=== PATIENT | male | born 1985 | race African-American/Black ===

== ENCOUNTER 2024-08-05 11:22 | Emergency (ER) | payer BC, OTHER, SELFPAY ==
[2024-08-05] VITALS (7 sets, daily range): BP systolic 177; BP diastolic 129; PULSE 89–107; RESP 14–23; TEMP 36.2; O2SAT 98–100; BMI 29.5
--- OUTSIDE RECORDS SUMMARY | 2024-08-05 11:23 | XMS_ITS | Continuity of Care Document ---
Author Name [facility] Organization [facility] Care Team Providers Care Information Systems Professor Name Role Phone [facility] Unavailable Unavailable Problems Combined list of problems from Department of Defense and Veterans Affairs facilities. It does not include entries that were removed or entered in error. Problem Status Onset Date Problem Type Date of Resolution Comments Source Diarrhea, unspecified Inactive 2 Condition [facility] Essential hypertension Active 6 Condition Unknown Organization Essential (primary) hypertension Active 6 Condition [facility] ASSESSMENT, PRE-DEPLOYMENT, DOCUMENTED ON [id number] Active 9 Condition [facility] Acquired pes planus of both feet Active Condition Unknown Organization Acquired pes planus of right foot Active Condition [address] [place] [address] [place] EXAM, OCCUPATIONAL, SKILLED NURSING OR SEPARATION FROM [employer], LONG Active Condition [address] [place] [address] [place] Left shoulder pain Active Condition [facility] [place] Other low back pain Active Condition [address] [place] [address] [place] Right knee pain Active Condition [address] [place] [address] [place] Need For Vaccination Hepatitis A Inactive Condition [facility] Medications Combined list of outpatient medications from Department of Defense and Veterans Affairs facilities.Medications provided include 1) outpatient medications from the last 15 months, and 2) patient-reported medications. Medication Details Route Status Patient Instructions Prescription Expires Prescription Number Last Dispense Date Ordering Provider Order Date Order Qty Source amitriptyli ne 25 mg oral tablet 1 tab(s), Oral, every day at bedtime, # 90 tab(s), 1 total refill(s ), Acute, Pharmacy : [facility] Oral (given by mouth) Complet ed 06/01/2024 4 2024 90.0 [facility] [place] amitriptyli ne 25 mg oral tablet 90 tab(s), 0 Refill(s ), 0 total refill(s ), Soft Stop Complet ed 11/27/20222022 [facility] [place] amitriptyli ne 25 mg tablet See dose instruct ions in comments , # 90 EA, 1 total refill(s ), Acute Complet ed 06/02/2023 3 2023 90.0 Ambulat ory Pharmac y Amitriptyli ne Hydrochlori de (Elavil Eq.) Tablet 25 mg Oral May cause drowsine ss.Avoid exposure to sun.Take or use exactly as directed .Obtain advice for OTCs. 05/31/2024 [id number] 4 2023 90 [facility] carboxymeth ylcellulose 0.25% eye drops 0.5 %, OPHTHALM IC, 0 Refill(s ), 0 total refill(s ), Soft Stop Complet ed 11/27/20222022 [facility] [place] chlorthalid one 25 mg tablet See dose instruct ions in comments , # 90 EA, 3 total refill(s ), Acute Discont inued 06/09/2023 3 2023 90.0 Ambulat ory Pharmac y Debrox Earwax Removal Kit 6.5% otic solution See Instruct ions, 2 drop(s) BID as directed on package labeling , # 30 mL, 0 total refill(s ), Acute, Pharmacy : [facility] Discont inued 06/01/2023 3 2023 30.0 [facility] [place] dexAMETHaso ne 4 mg oral tablet See Instruct ions, 2 TABS in the morning for 4 days then 1 TAB in the morning for 7 days, # 15 tab(s), 0 total refill(s ), Acute, Pharmacy : [facility] Complet ed 03/01/2023 3 2022 15.0 [facility] [place] diclofenac sodium 75 mg oral delayed release tablet 1 tab(s), Oral, BID, # 14 tab(s), 0 total refill(s ), Jaelyn sce, Pharmacy : [facility] Oral (given by mouth) Discont inued 06/01/2023 3 2023 14.0 [facility] [place] lansoprazol e 30 mg oral delayed release capsule 1 cap(s), Oral, Daily, # 60 cap(s), 2 total refill(s ), Jaelyn [facility], Pharmacy : [facility] Oral (given by mouth) Discont inued 02/19/20232022 60.0 [facility] [place] LISDEXAMFET AMINE DIMESYLATE (lisdexamfe tamine dimesylate) , 50 MG, CAPSULE, ORAL, HIKMA PHARMACEU, 100 ea. BOTTLE Active [id number] 4 2023 30 Pharmac y Data Transac tion Service Facilit y losartan-hy droCHLOROth iazide 50mg-12.5mg oral tablet 1 tab(s), Oral, Daily, for blood pressure , # 90 tab(s), 3 total refill(s ), Jaelyn [facility], Pharmacy : [facility] Oral (given by mouth) Ordered 4 2023 90.0 [facility] [place] ocular lubricant ophthalmic solution INSTILL 1 TO 2 DROPS IN AFFECTED EYE(S) OFTEN NEEDED FOR DRYNESS, # 30 EA, 10 total refill(s ), Acute Complet ed 10/28/2023 3 2023 30.0 Ambulat ory Pharmac y omeprazole 40 mg oral delayed release capsule 1 cap(s), Oral, Daily, 30 to 60 minutes before a meal, # 60 cap(s), 0 total refill(s ), [facility], Pharmacy : [facility] Oral (given by mouth) Discont inued 06/01/2023 3 2023 60.0 [facility] [place] Allergies, Adverse Reactions, Alerts Combined list of allergies from Department of Defense and Veterans Affairs facilities. It does not include entries that were removed or entered in error. Substance Category Reaction Severity Reaction type Status Date Reported Comments Source No Known Allergies Drug allergy (disorder) active 11/28/2022 [facility] Immunizations Combined list of available immunizations from the Department of Defense and Veterans Affairs facilities. Immunization Series Date Given Administered By Site Reaction Lot Number CVX Code Drug Water Quality Assistant Status Comments Source influenza virus vaccine, inactivated 2022 JOSE ELIAS Long[place] linda, left (delt oid) [id number] [employer] complet ed influenza virus vaccine, inactivat ed 02/25/23 Given [facility] [place] influenza, injectable, quadrivalent- pf 2022 JESSICALYNCH [id number] 150 complet ed Result Comment: Route: Unknown Manufactu rer: OT (SEQ) [facility] [place] typhoid Vi capsular polysaccharid e vac 2022 JESSICALYNCH [id number] 101 complet ed Result Comment: Route: Unknown Manufactu rer: OT (PMC) [facility] [place] influenza, injectable, quadrivalent- pf 2021 MS.CHRISTIE RAINESJAIME [id number] 150 complet ed Result Comment: Route: Intramusc ular(IM) Manufactu rer: Mediam[employer] e (SKB) [facility] [place] COVID-19 vaccine(Pfize r Bival 12yr+) 2021 MS.CHRISTIE GONZALEZKARYNA [id number] 300 complet ed Result Comment: Route: Intramusc ular(IM) Manufactu rer: Pfizer, Inc (PFR) [facility] [place] influenza, injectable, quadrivalent 2021 JESSICALYNCH [id number] 158 complet ed Result Comment: Route: Unknown Manufactu rer: [facility] (SKB) [facility] [place] COVID Vaccine Moderna 2021 MS.CHRISTIE GONAZLEZKARYNA [id number] 207 complet ed Result Comment: Route: Intramusc ular(IM) Manufactu rer: Moderna US, Inc. (MOD) [facility] [place] COVID Vaccine Moderna 2021 MSISIDRAARABELLAREINA MARINO [id number] 207 complet ed Result Comment: Route: Unknown Manufactu rer: Moderna US, Inc. (MOD) [facility] [place] influenza, injectable, quadrivalent- pf 2020 MS.SHARONDALA PICHARDO [id number] 150 complet ed Result Comment: Route: Intramusc ular(IM) Manufactu rer: [employer] (SKB) [facility] [place] influenza, injectable, quadrivalent- pf 2020 MS.SHARONDALA PICHARDO [id number] 150 complet ed Result Comment: Route: Unknown Manufactu rer: [employer] (SKB) [facility] [place] yellow fever vaccine 2020 MS.SHARONDALA PICHARDO [id number] 37 complet ed Result Comment: Route: Subcutane ous(SC) Manufactu rer: Sanofi Pasteur (PMC) [facility] [place] meningococcal A,C,Y,W-135 (MCV4P) 2020 MS.SHARONDALA PICHARDO [id number] 114 complet ed Result Comment: Route: Intramusc ular(IM) Manufactu rer: Sanofi Pasteur (PMC) [facility] [place] COVID Vaccine Moderna 2020 JESSICALYNCH [id number] 207 complet ed Result Comment: Route: Unknown Manufactu rer: OTH (MOD) [facility] [place] COVID Vaccine Moderna 2020 JESSICALYNCH UNK 207 complet ed Result Comment: Route: Unknown Manufactu rer: OTH (MOD) [facility] [place] typhoid Vi capsular polysaccharid e vac 2020 zzLef t Arm [id number] 101 sanofi pasteur complet ed typhoid Vi capsular polysacch aride vac 05/01/20 Given Ambulat ory Pharmac y typhoid Vi capsular polysaccharid e vaccine 1 2020 LUCINDA GLASS I [id number] Sanofi Pasteur (PMC) complet ed typhoid Vi capsular polysacch aride vaccine DoD influenza virus vaccine, inactivated 2019 [id number] Seqirus complet ed influenza virus vaccine, inactivat ed 01/06/20 Given Ambulat ory Pharmac y Influenza, injectable, Madin [place] Canine Kidney, quadrivalent with preservative 1 2019 [id number] 186 Se[employer]irus (SEQ) comple t ed Influenza , injectabl e, Madin [place] Canine Kidney, quadrival ent with preservat aicha DoD anthrax vaccine 2019 zzLef t Arm [id number] 24 Emergent Bios[employer] complet ed anthrax vaccine 07/08/19 Given Ambulat ory Pharmac y anthrax vaccine 5 2019 ANÍBALRosario LOREN [id number] 24 [employer]gent [employer] Noti (MIP) complet ed anthrax vaccine DoD influenza, injectable, quadrivalent 2018 zzLef t Arm [id number] 158 Se[employer]irus complet ed influenza , injectabl e, quadrival ent 12/01/18 Given Ambulat ory Pharmac y influenza, injectable, quadrivalent, contains preservative 1 2018 [id number] 090 158 [employer] (SEQ) complet ed influenza , injectabl e, quadrival ent, contains preservat aicha DoD typhoid Vi capsular polysaccharid e vac 2018 [id number] 101 sanofi pasteur complet ed typhoid Vi capsular polysacch aride vac 04/01/18 Given Ambulat ory Pharmac y typhoid Vi capsular polysaccharid e vaccine 1 2018 [id number] 101 Sanofi Pasteur (PMC) complet ed typhoid Vi capsular polysacch aride vaccine DoD influenza, injectable, quadrivalent- pf 2017 150 complet ed influenza , injectabl e, quadrival ent-pf 01/18/18 Given Ambulat ory Pharmac y Influenza, injectable, quadrivalent, preservative free 0 2017 150 (MVX) complet ed Influenza , injectabl e, quadrival ent, preservat aicha free DoD influenza, injectable, quadrivalent 2017 [id number] 158 Se[employer] complet ed influenza , injectabl e, quadrival ent 01/13/18 Given Ambulat ory Pharmac y influenza, injectable, quadrivalent, contains preservative 1 2017 [id number] 158 Seqirus (SEQ) comple t ed influenza , injectabl e, quadrival ent, contains preservat aicha DoD influenza virus vaccine, inactivated 2017 [id number] 88 Seqirus complet ed influenza virus vaccine, inactivat ed 03/04/17 Given Ambulat ory Pharmac y Influenza, injectable, Madin [place] Canine Kidney, quadrivalent with preservative 1 2017 [id number] 186 Seqirus (SEQ) comple t ed Influenza , injectabl e, Madin Tiffany Canine Kidney, quadrival ent with preservat aicha DoD anthrax vaccine 2016 zzLef t Arm [id number] 24 [employer] complet ed anthrax vaccine 06/30/16 Given Ambulat ory Pharmac y anthrax vaccine 4 2016 NIELS ROBIN [id number] 24 Emergent [employer] Not[employer] ([facility]) complet ed anthrax vaccine DoD anthrax vaccine 2015 zzLef t Arm [id number] 24 [employer] complet ed anthrax vaccine 12/31/15 Given Ambulat ory Pharmac y anthrax vaccine 3 2015 AKUA HUFFMAN [id number] 24 [employer]gent [employer] Noti ([facility]) complet ed anthrax vaccine DoD influenza, seasonal, injectable-pf 2015 [id number] 140 CSL Behring complet ed influenza , seasonal, injectabl e-pf 12/13/15 Given Ambulat ory Pharmac y Influenza, seasonal, injectable, preservative free 1 2015 [id number] 140 CSL [employer] Inc. (CSL) complet ed Influenza , seasonal, injectabl e, preservat aicha free DoD measles/mumps /rubella virus vaccine 2015 UNK 03 Unknown complet ed measles/m umps/rube lla virus vaccine 09/07/15 Given Ambulat ory Pharmac y varicella virus vaccine 2015 POLY SOUZAROOSEVELT UNK 21 complet ed Result Comment: Route: Unknown Manufactu rer: OTH (UNK) [facility] [place] measles, mumps and rubella virus vaccine 0 2015 03 () Not Given measles, mumps and rubella virus vaccine DoD hepatitis B vaccine, unspecified formulation 0 2015 45 () Not Given hepatitis B vaccine, unspecifi ed formulati on DoD tetanus, diphtheria, acellular pertu is 2015 zzLef t Arm [id number] 115 complet ed tetanus, diphtheri a, acellular pertussis 08/14/15 Given Ambulat ory Pharmac y tetanus toxoid, reduced diphtheria toxoid, and acellular pertu is vaccine, adsorbed 0 2015 AKUA HUFFMAN [id number] 115 Transcribed (TRS) complet ed tetanus toxoid, reduced diphtheri a toxoid, and acellular pertussis vaccine, adsorbed DoD anthrax vaccine 2015 [id number] 24 Emer[employer] complet ed anthrax vaccine 07/19/15 Given Ambulat ory Pharmac y [place] Encephalitis IM 2015 [id number] 134 Novartis Pharmaceutica ls complet ed [place] Encephali tis IM 07/19/15 Given Ambulat ory Pharmac y anthrax vaccine 2 2015 [id number] 24 [employer] Not[employer] (MIP) complet ed anthrax vaccine DoD [place] Encephalitis vaccine for intramuscular administratio n 2 2015 [id number] 134 Novartis Pharmaceutica l Har[place]. (NOV) complet ed [place] Encephali tis vaccine for intramusc ular administr ation DoD typhoid Vi capsular polysaccharid e vac 2015 [id number] 101 sanofi pasteur complet ed typhoid Vi capsular polysacch aride vac 06/07/15 Given Ambulat ory Pharmac y meningococcal A,C,Y,W-135 (MCV4P) 2015 [id number] 114 sanofi pasteur complet ed meningoco ccal A,C,Y,W-1 35 (MCV4P) 06/07/15 Given Ambulat ory Pharmac y [place] Encephalitis IM 2015 [id number] [id number] 134 Sanofi Pasteur Incorporated complet ed [place] Encephali tis IM 06/07/15 Given Ambulat ory Pharmac y vaccinia (smallpox) vaccine 2015 VV03-01 9C 75 Sanofi Pasteur Incorporated complet ed vaccinia (smallpox ) vaccine 06/07/15 Given Ambulat ory Pharmac y anthrax vaccine 2015 [id number] 24 Emer[employer] complet ed anthrax vaccine 06/07/15 Given Ambulat ory Pharmac y anthrax vaccine 1 2015 [id number] 24 [employer] Noti (MIP) complet ed anthrax vaccine DoD vaccinia (smallpox) vaccine 1 2015 VV03-01 9C 75 (SEA) complet ed vaccinia (smallpox ) vaccine DoD typhoid Vi capsular polysaccharid e vaccine 1 2015 [id number] 101 Sanofi Pasteur (PMC) complet ed typhoid Vi capsular polysacch aride vaccine DoD meningococcal polysaccharid e (groups A, C, Y and W-135) diphtheria toxoid conjugate vaccine (MCV4P) 1 2015 [id number] 114 Sanofi Pasteur (PMC) complet ed meningoco ccal polysacch aride (groups A, C, Y and W-135) diphtheri a toxoid conjugate vaccine (MCV4P) DoD [place] Encephalitis vaccine for intramuscular administratio n 1 2015 [id number] 4E 134 (SEA) complet ed [place] Encephali tis vaccine for intramusc ular administr ation DoD influenza, seasonal, injectable 2015 [id number] 141 CSL Behring complet ed influenza , seasonal, injectabl e 03/22/15 Given Ambulat ory Pharmac y hepatitis A adult vaccine 2015 [id number] 52 GlaxoSmithKli ne complet ed hepatitis A adult vaccine 03/22/15 Given Ambulat ory Pharmac y poliovirus vaccine, inactivated 2015 [id number] 10 sanofi pasteur complet ed polioviru s vaccine, inactivat ed 03/22/15 Given Ambulat ory Pharmac y poliovirus vaccine, inactivated 1 2015 [id number] 10 Sanofi Pasteur (PMC) complet ed polioviru s vaccine, inactivat ed DoD hepatitis A vaccine, adult dosage 2 2015 [id number] 52 SmithKline (SKB) complet ed hepatitis A vaccine, adult dosage DoD Influenza, seasonal, injectable 1 2015 [id number] 141 [facility] Biotherapies, Inc. (CS) complet ed Influenza , seasonal, injectabl e DoD measles, mumps and rubella virus vaccine 1 2015 UNK 03 Unknown (UNK) Not Given measles, mumps and rubella virus vaccine DoD varicella virus vaccine 1 2015 UNK 21 Unknown (UNK) Not Given varicella virus vaccine DoD hepatitis B vaccine, adult dosage 2 2015 UNK 43 Unknown (UNK) Not Given hepatitis B vaccine, adult dosage DoD hepatitis B adult vaccine 2014 [id number] 43 GlaxoSmithKli ne complet ed hepatitis B adult vaccine 04/09/14 Given Ambulat ory Pharmac y HepB, Adult 2014 SHARON [id number] 43 complet ed Result Comment: Route: Unknown Manufactu rer: Kurt mock (SKB) [facility] [place] hepatitis B vaccine, adult dosage 1 2014 [id number] 43 SmithKline (SKB) complet ed hepatitis B vaccine, adult dosage DoD influenza, seasonal, injectable 2013 [id number] 141 GlaxoSmithKli ne complet ed influenza , seasonal, injectabl e 02/04/14 Given Ambulat ory Pharmac y Influenza, seasonal, injectable 1 2013 [id number] 141 SmithKline (SKB) complet ed Influenza , seasonal, injectabl e DoD hepatitis A adult vaccine 2013 zzRig ht Arm [id number] 2GA 52 GlaxoSmithKli ne complet ed hepatitis A adult vaccine 09/06/13 Given Ambulat ory Pharmac y hepatitis A vaccine, adult dosage 1 2013 NICK LUNDBERG [id number] 2GA 52 SmithKline (SKB) complet ed hepatitis A vaccine, adult dosage DoD Results Combined list of recent chemistry, hematology and other laboratory results from Department of Defense and Veterans Affairs, ranging from 15 months to all on record, depending upon the facility. Order Name Results Value Reference Range Date Interpretation Specimen Comments Source Infectiou s Disease HIV-1/O/2 Non-Reac tive 2 (06/11/23 9:53 AM) 06/10 N Interpretiv e Data: INTERPRETAT ION: This method is a screening procedure for the detection of HIV p24 Antigen and Antibodies to HIV-1, including Group O, and/or HIV-2. NON-REACTIV E: HIV-1 antigen and HIV-1 / HIV-2 antibodies were not detected. No laboratory evidence of HIV infection. A negative test result does not exclude the possibility of exposure to or infection with HIV. HIV antibodies and/or p24 antigen may be undetectabl e in some stages of the infection and in some clinical conditions. If acute HIV infection is suspected, consider submitting another specimen to a reference laboratory for HIV-1 RNA. SCREEN REACTIVE - CONFIRMATIO N TO FOLLOW: Possible presence of HIV-1antibo dies, HIV-2 antibodies and/or HIV-1 p24 antigen. Specimen will reflex to the confirmatio n testing that fulfills the Center for Disease Control and Prevention' s HIV diagnostic algorithm. Refer to [facility] Lab Guide for additional information : [email or web address]/ [email or web address] x Testing performed by Omar licona. [facility] [employer] Miscellan eous Sendouts Repository Sample Received (06/11/23 9:53 AM) 06/10 N [facility] Infectiou s Disease Reason for Test? Screenin g *NA* (08/04/20 10:20 AM) 08/04 [facility] Molecular Infectiou s Disease SARS-CoV-2 PCR Negative 3 (08/04/20 10:20 AM) 08/04 N Interpretiv e Data: POSITIVE-Th e 2019 novel Coronavirus (SARS-COV-2 ) target nucleic acids are detected. PRESUMTIVE POSITIVE-Th e 2019 novel Coronavirus (SARS-COV-2 ) target nucleic acids MAY be present. Sample should be retested. For samples with a repeated PRESUMTIVE POSITIVE result, additional confirmator y testing may be conducted, if it is necessary to differentia te between SARS-COV-2 and SARS-COV-1 or other Sarbecoviru s currently unknown to infect humans, for epidemiolog ical purposes or clinical management. NEGATIVE- The 2019 novel Coronavirus (SARS-COV-2 ) target nucleic acids are not detected. INVALID- Result indicates that the control SPC failed. The Sample was not properly processed, PCR is inhibited, or the sample was not properly collected. ERROR- Result could be due to, but not limited to, Probe Check Control failure, system component failure, or the maximun pressure limits were exceeded. NO RESULT- Indicates that insufficien t data were collected. For example, cartridge failed integrity test, the spaghetti machine operator stopped a test that was in progress, or a power failure occurred. Currently the FluVID order may only be used to test SARS-CoV-2 at [facility] Hematolog y Sickle Cell Screen.[facility] NEGATIVE 07/09 Result Comment: INTERPRETAT ION(S): Expected result: Negative This test was developed and its performance characteris tics evaluated by [facility] Reference Chemistry Laboratory. It has not been cleared or approved by the U.S. Food Drug Administrat ion (FDA). FDA does not require this test to go through premarket FDA review. The test is used for clinical purposes and should not be regarded as investigati onal or for research. This laboratory is certified under the Clinical Laboratory Improvement Amendments of 1988 (CLIA) as qualified to perform high complexity clinical laboratory testing. Performed at: [facility] Department of Pathology [address] [place] [address] [facility] Vital Signs Combined list of inpatient and outpatient Vital Signs from Department of Defense and Veterans Affairs, ranging from 12 months to all on record, depending upon the facility. Vital Sign Value Date Comments Source Peripheral Pulse Rate 103 bpm 06/01/2023 08:06:00 [facility] [place] Systolic Blood Pressure 138 mm[Hg] 06/01/19 24 08:06:00 [facility] [place] Diastolic Blood Pressure 118 mm[Hg] 024 08:06:00 [facility] [place] Mean Arterial Pressure, Calc 125 mm[Hg] 06/01/2023 08:06:00 [facility] [place] Respiratory Rate 17 br/min 06/01/2023 08:06:00 [facility] [place] BP Site Right arm 06/01/2023 08:06:00 [facility] [place] Blood Pressure Manual Automatic 06/01/2023 08:06:00 [facility] [place] Peripheral Pulse Rate 92 bpm 06/03/2023 07:14:00 [facility] [place] Respiratory Rate 18 br/min 06/03/2023 07:14:00 [facility] [place] BP Site Right arm 06/03/2023 07:14:00 [facility] [place] Blood Pressure Manual Manual 06/03/2023 07:14:00 [facility] [place] Systolic Blood Pressure 135 mm[Hg] 06/03/19 24 07:14:00 [facility] [place] Diastolic Blood Pressure 90 mm[Hg] 024 07:14:00 [facility] [place] Mean Arterial Pressure, Calc 105 mm[Hg] 06/03/2023 07:14:00 [facility] [place] Mean Arterial Pressure, Calc 105 mm[Hg] 06/09/2023 07:37:00 [facility] [place] Systolic Blood Pressure 142 mm[Hg] 06/09/19 24 07:37:00 [facility] [place] Diastolic Blood Pressure 86 mm[Hg] 024 07:37:00 [facility] [place] Blood Pressure Manual Automatic 06/09/2023 07:37:00 [facility] [place] BP Site Left arm 06/09/2023 07:37:00 [facility] [place] Peripheral Pulse Rate 107 bpm 06/09/2023 07:37:00 [facility] [place] Respiratory Rate 16 br/min 06/09/2023 07:37:00 [facility] [place] Peripheral Pulse Rate 97 bpm 12/26/2022 08:08:00 [facility] [place] Mean Arterial Pressure, Calc 109 mm[Hg] 12/26/2022 08:08:00 [facility] [place] Systolic Blood Pressure 135 mm[Hg] 12/27/19 23 08:08:00 [facility] [place] Diastolic Blood Pressure 96 mm[Hg] 023 08:08:00 [facility] [place] Peripheral Pulse Rate 77 bpm 07/24/2020 14:00:[address] [place] [address] Mean Arterial Pressure, Calc 107 mm[Hg] 01/02/2023 08:37:00 [facility] [place] Peripheral Pulse Rate 96 bpm 01/02/2023 08:37:00 [facility] [place] Systolic Blood Pressure 140 mm[Hg] 01/03/20 23 08:37:00 [facility] [place] Diastolic Blood Pressure 90 mm[Hg] 023 08:37:00 [facility] [place] Blood Pressure Manual Manual 06/05/2023 07:42:00 [facility] [place] BP Site Right arm 06/05/2023 07:42:00 [facility] [place] Mean Arterial Pressure, Calc 113 mm[Hg] 06/05/2023 07:42:00 [facility] [place] Respiratory Rate 20 br/min 06/05/2023 07:42:00 [facility] [place] Peripheral Pulse Rate 102 bpm 06/05/2023 07:42:00 [facility] [place] Systolic Blood Pressure 138 mm[Hg] 06/05/19 24 07:42:00 [facility] [place] Diastolic Blood Pressure 100 mm[Hg] 024 07:42:00 [facility] [place] Blood Pressure Manual Manual 06/02/2023 09:02:00 [facility] [place] BP Site Right arm 06/02/2023 09:02:00 [facility] [place] Respiratory Rate 20 br/min 06/02/2023 09:02:00 [facility] [place] Peripheral Pulse Rate 90 bpm 06/02/2023 09:02:00 [facility] [place] Mean Arterial Pressure, Calc 118 mm[Hg] 06/02/2023 09:02:00 [facility] [place] Systolic Blood Pressure 148 mm[Hg] 06/02/19 24 09:02:00 [facility] [place] Diastolic Blood Pressure 103 mm[Hg] 024 09:02:00 [facility] [place] Temperature Oral 37 Jennifer 07/02/2020 13:18:00 0008C-[facility] Respiratory Rate 16 br/min 07/02/2020 13:18:00 0008C-Lai.[facility] Blood Pressure Manual Manual 07/02/2020 13:18:00 0008C-RKunal.[facility] BP Site Left arm 07/02/2020 13:18:00 0008C-R.[facility]idencio[facility] Systolic Blood Pressure 138 mm[Hg] 11/29/19 23 11:58:00 [facility] [place] Diastolic Blood Pressure 88 mm[Hg] 023 11:58:00 [facility] [place] Peripheral Pulse Rate 100 bpm 11/28/2022 11:58:00 [facility] Respiratory Rate 13 br/min 11/28/2022 11:58:00 [facility] Temperature Oral 37 Jennifer 11/28/2022 11:58:00 [facility] Blood Pressure Manual Manual 11/28/2022 11:58:00 [facility] BP Site Left arm 11/28/2022 11:58:00 [facility] Mean Arterial Pressure, Calc 105 mm[Hg] 11/28/2022 11:58:00 [facility] Systolic Blood Pressure 144 mm[Hg] 06/04/19 07:26:00 [facility] Diastolic Blood Pressure 92 mm[Hg] 024 07:26:00 [facility] Blood Pressure Location Right arm 06/04/19 07:26:00 [facility] Blood Pressure Method Manual 06/04/2023 07:26:00 [facility] Cuff Size Medium 06/04/2023 07:26:00 [facility] Peripheral Pulse Rate 106 bpm 06/04/2023 07:26:00 [facility] Mean Arterial Pressure, Calc 109 mm[Hg] 06/04/2023 07:26:00 [facility] Blood Pressure Method Manual 06/04/2023 07:30:00 [facility] Mean Arterial Pressure, Calc 113 mm[Hg] 06/04/2023 07:30:00 [facility] Systolic Blood Pressure 138 mm[Hg] 06/04/19 24 07:30:00 [facility] Diastolic Blood Pressure 100 mm[Hg] 024 07:30:00 [facility] Cuff Size Medium 06/04/2023 07:30:00 [facility] Blood Pressure Location Left arm 06/04/19 24 07:30:00 [facility] Encounters Combined list of: 1) Encounters from [facility] of Veterans Affairs facilities going backup to the last 18 months, not all VA inpatient encounters are included; 2) 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 Location Location Details Encounter Type Encounter Number Reason For Visit Attending Provider ADM Date DC Date Status Disposition Source [facility] OUTPATIENT [id number] A/E PAULA HERNANDEZ 08/13 Released w/o Limitations [facility] [place] [facility] Araujo([facility]) OUTPATIENT [id number] Notes Entered by: GERRY WASHINGTON 30 Aug 2013 1552 ------- ------- ------- ------- -- ramirez in process GERRY Mosley 08/30 Released w/o Limitations [facility]DR[facility] ) [place] UDAY [facility] SONDRA(Immuni zation Clinic) OUTPATIENT [id number] Notes Entered by: Gianna LUNDBERG 06 Sep 2013 1021 ------- ------- ------- ------- -- NICK SANCHEZ 09/06 Released w/o Limitations [facility] [place](Im[place] niz[place] n Clinic) [facility] [place]([facility]) OUTPATIENT [id number] Notes Entered by: JAYSON CARRILLO 22 Mar 2015 0831 ------- ------- ------- ------- -- INPRO/P ZIMMERMAN/MF 829/HEP A/FLU/M GC/JEANETTE O/TDAP/ G6PD/ YESICA WHITESIDE 03/22 Released w/o Limitations [facility] [place](Sold ier Readine ss Program Center) [facility] [place](IE Hearing Conservat ion Exam) OUTPATIENT [id number] Notes Entered by: PAULO SAEED 22 Mar 2015 1150 ------- ------- ------- ------- -- Annual Hearing Test RAEANN SAEED 03/22 Released w/o Limitations [facility] [place] [place](IEP Hearing Conserv ation Exam) [facility] [place] [id number] Notes Entered by: CHRIS SHIPMAN 11 Apr 2015 0938 ------- ------- ------- ------- -- BOL 03/17 RESP-CL MIMI CAMILO 04/11 [facility]itations [facility] [place](Civi l Defense Support Team) [facility] [place] OUTPATIENT [id number] Notes Entered by: Gianna JOSE 26 Apr 2015 0758 ------- ------- ------- ------- -- BOL 03/17 MED MONITOR ING DELVIN MERA 04/26 [facility]ased [facility]/o Limitations [facility] [place]) [facility] [place] OUTPATIENT [id number] Notes Entered by: ASHLEY ZAPATA 03 May 2015 0747 ------- ------- ------- ------- -- BOL 03/17-M ED MONITOR CHRIS RUSS 05/02 Released w/o Limitations [facility] [place] [facility] [place] [id number] Notes Entered by: CHRIS SHIPMAN 04 May 2015 0834 ------- ------- ------- ------- -- BOL 03/17 MED MONITOR ING CANDICE MCKEON 05/03 [facility]ased w/o Limitations [facility] [place]) [facility] [place] OUTPATIENT [id number] Notes Entered by: RACHELE CALVO 21 May 2015 0911 ------- ------- ------- ------- -- [facility] 2001 MIMI Cross 05/20 Released w/o Limitations [facility] [place]) [facility] [place] OUTPAT[place] [id number] Notes Entered by: ALEYDA HUDDLESTON 07 Jun 2015 1001 ------- ------- ------- ------- -- POR/403 6/ANTHR AX/JEV/ TYPHOID /SMALLP OX/MGC YESICA OSUNA 06/06 Released w/o Limitations [facility] [place] [facility] [place]Doc hernán[place] OUTPATIENT [id number] Notes Entered by: CAMI CARY 08 Jun 2015 0621 ------- ------- ------- ------- -- headach e/JUDY Jimenez 06/07 [facility] Limitations [facility] [place] [facility] [place] OUTPATIENT [id number] Notes Entered by: CAMI CARY 15 Jun 2015 0616 ------- ------- ------- ------- -- f/u JUDY Chan 06/14 [facility] [place]/o Limitations [facility] [place] [facility] [place] [place] [facility] OUTPATIENT [id number] Notes Entered by: QUIN SPENCER 15 Jun 2015 0811 ------- ------- ------- ------- -- smallpo x f/u NELLYYESICA LARA Arin 06/14 [facility]ased w/o Limitations [facility] [place] [place] OUTPATIENT [id number] Notes Entered by: MIMI GARZA 29 Jun 2015 0628 ------- ------- ------- ------- -- F/u BP SCARLET Bell 06/28 [place]ased w/o Limitations [place] OUTPATIENT [id number] Notes Entered by: CAMI CARY 04 Jul 2015 0613 ------- ------- ------- ------- -- f/u JUDY MCCLOUD 07/03 [place]ased [place] Limitations [place] [facility] MARCEL Gatica SAWYER-P YONGTAEK( 1RC) OUTPATIENT [id number] Notes Entered by: CYNDIE NORRIS 19 Jul 2015 1006 ------- ------- ------- ------- -- IN PROCESS IWONA PEÑA 07/18 Released w/o Limitations [facility] MARCEL Gatica SAWYER -PYONGT ИРИНАK(1RC ) [facility] MARCEL Gatica SAWYER-P YONGTAEK( Immunizat ions [place]) OUTPATIENT [id number] Notes Entered by: AKUA HUFFMAN 14 Aug 2015 1057 ------- ------- ------- ------- -- TdAKUA Alegria 08/13 Released w/o Limitations [facility] SAWYER -PYONGT AEK(Imm unizati ons [place] ) [facility] MARCEL Gatica SAWYER-P YONGTAEK( Immunizat ions [place]) OUTPATIENT [id number] Notes Entered by: LOLY TREVINO IN 13 Dec 2015 1545 ------- ------- ------- ------- -- Flu Shot NIELS ROBIN 12/12 Released w/o Limitations [facility]DAY BOWDENGOOD -PYONGT AEK(Imm unizati ons [place] ) [facility]-[place]( Immunizat ions [place]) OUTPATIENT [id number] Notes Entered by: NATHANAELAKUA KIRTI 31 Dec 2015 1331 ------- ------- ------- ------- -- Anthrax AKUA HUFFMAN 12/30 Released w/o Limitations [facility] Gatica SAWYER -PYONGT AEK([facility] unizati ons [place] ) [facility] MARCEL Gatica SAWYER-P YONGTAEK( Hearing Program [place]) OUTPATIENT [id number] Notes Entered by: SHEILA LIU 08 Apr 2016 1431 ------- ------- ------- ------- -- audiolo gy exam NIELS ROBIN 04/08 Released w/o Limitations [facility] BOWDENGOOD -PYONGT AEK(Hea ring Program [place] ) [facility]DENGO[facility]( Immunizat ions [place]) OUTPATIENT [id number] Notes Entered by: MORIAH AGUDELO 30 Jun 2016 1343 ------- ------- ------- ------- -- ANTHRAX NIELS ROBIN 06/30 Released w/o Limitations [facility] JACQUES -PYONGT AEK(Imm unizati ons [place] ) [facility] SAWYER-P Y[facility]( Immunizat ions [place]) OUTPATIENT [id number] Notes Entered by: MORIAH AGUDELO 11 Jul 2016 1103 ------- ------- ------- ------- -- PPD SCREEN DERECKJTSAMPSON H 07/11 Released w/o Limitations [facility] MARCEL ESPAÑA([facility] marisela dill [place] ) [facility] [place](SRP Deploymen t Clinic) OUTPATIENT [id number] Notes Entered by: Ondina YOU 19 Aug 2016 0650 ------- ------- ------- ------- -- [facility] ANTHONY TAVARES 08/19 Released w/o Limitations [facility](SR P Deploym ent Clinic) [facility](Desiree ged Care [facility]) OUTPATIENT [id number] Notes Entered by: Gary SOSA 06 Nov 2016 1332 ------- ------- ------- ------- -- Absent NAHOMY Ray 11/06 Released w/o Limitations [facility](Ma naged Care [facility]) [facility] S05A Gunner) TELE CONSULT [id number] Notes Entered by: FADI COLE 06 Nov 2016 1528 ------- ------- ------- ------- -- AdmJAY Downs 11/06 [facility](AM H S05A Gunner) [facility] S05A Gunner) TELE CONSULT [id number] Notes Entered by: Rafael MORALES 07 Nov 2016 0853 ------- ------- ------- ------- -- NETWORK RESULTS / EMERGEN [facility]/ [id number] JAY COON 11/07 [facility](AM H S05A Gunner) [facility] S05A Gunner) TELE CONSULT [id number] Notes Entered by: WILBERT GIRALDO 10 Nov 2016 0836 ------- ------- ------- ------- -- NETWORK RESULTS ADMKATHY Knight 7 [facility] 11/10 [facility](AM H S05A Gunner) [facility] S05A Gunner) OUTPATIENT [id number] Notes Entered by: Ari GILLETTE 09 Feb 2017 1328 ------- ------- ------- ------- -- Sinus Infecti on KIERA FISHER 02/09 Released w/o Limitations [facility](AM H S05A Gunner) [facility] [facility]) OUTPATIENT [id number] Annual MOHAN RILEY JR 06/05 Released w/o Limitations [facility](Bi ggs Hearing Program ) [facility](Phys ical Therapy [facility]) OUTPATIENT [id number] Notes Entered by: Gary CALABRESE 26 Jan 2018 1549 ------- ------- ------- ------- -- R hamstri ng pain GIANNI CALABRESE 01/26 Released w/o Limitations [facility](Ph ysical Therapy [facility]) [facility] S05A Gunner) OUTPATIENT [id number] congest ion, cough [facility] 03/23 Released w/o Limitations [facility](AM H S05A Gunner) [facility](AMH S05A Gunner) OUTPATIENT [id number] Notes Entered by: GINA RODRIGUEZ 07 May 2018 0828 ------- ------- ------- ------- -- HTN KATEY RODRIGUEZ 05/07 Released w/o Limitations [facility](AM H S05A Gunner) [facility](AMH S05A Gunner) OUTPATIENT [id number] EVAL BLOOD PRESSUR E [phone] MIESHA SALINAS ED 05/13 [facility]ased w/o Limitations [facility]erman(AM H S05A [facility]) [facility] OUTPATIENT [id number] Notes Entered by: Angelina ABDALLA 11 Aug 2018 1338 ------- ------- ------- ------- -- in process ing/vis MITCHEL Jones 08/11 Released w/o Limitations [facility] [place] [facility]) [facility] [place] Conserv[place] Ex[place] OUTPATIENT [id number] Notes Entered by: TREVOR LOPEZ 11 Aug 2018 1347 ------- ------- ------- ------- -- TREVOR Ledesma 08/11 Released w/o Limitations [facility]) [facility] [place] OUTPATIENT [id number] AD INPROCE SSING 3RD CHEM 74A [id number] TREVOR STRATTON 08/23 Released w/o Limitations [facility] [place] [facility] [place] OUTPATIENT [id number] QUETA HARPER 08/24 Released w/o Limitations [facility] [place] [place] OUTPATIENT [id number] met IWONA Hough 09/14 [facility]ased w/o Limitations [facility]) [facility] M01B Rowdy) OUTPATIENT [id number] Fluid filled lump on ankle CAMRYN MITCHELL 09/21 Released w/o Limitations [facility] M01B Rowdy) [place] [place] TELE CONSULT [id number] Notes Entered by: ANNABEL EAGLE 14 Oct 2018 1139 ------- ------- ------- ------- -- results SHIVADIALLO AlfaroKIMBER A 10/14 Other Not Elsewhere Classified [place] M01B Rowdy) [place] [id number] Notes Entered by: AILYN MAGUIRE 01 Dec 2018 1019 ------- ------- ------- ------- -- FLU VACCINE YESICA MAGUIRE 12/01 [facility]ased [facility]/o Limitations [facility] [place] [place] OUT[place]IENT [id number] Notes Entered by: Angelina ABDALLA 16 Feb 2019 1111 ------- ------- ------- ------- -- IMR/PHA /MF830 MEY DUGAN 02/16 [place]ased w/o Limitations [place] [place] [facility] OUT[place]IENT [id number] Notes Entered by: JAYSON CARRILLO 27 Jun 2019 1354 ------- ------- ------- ------- -- IMR/SCR MITCHEL GOOD 06/26 [place]/o Limitations [place] OUTPATIENT [id number] Notes Entered by: Angelina ABDALLA 08 Jul 2019 1458 ------- ------- ------- ------- -- PRE DEPLOY/ DD 2795/ MARLO FRANCIS 07/07 Released w/o Limitations [facility] [place] [facility] [place] [facility] [facility] [place] [id number] Notes Entered by: SHWETA PINO 08 Jul 2019 1524 ------- ------- ------- ------- -- Anthrax LOREN ELIZABETH 07/07 Released w/o Limitations [facility] [place] OUT[place] [id number] Notes Entered by: CHICA CULP 11 Jul 2019 1425 ------- ------- ------- ------- -- annual CHICA CULP 07/10 [facility]ased w/o Limitations [facility] [place] [place] TELE CONSULT [id number] Notes Entered by: RAFY JEAN BAPTISTE 12 Jul 2019 1222 ------- ------- ------- ------- -- JUWAN Complet ed MARIELA JEAN BAPTISTE 07/11 Other Not Elsewhere Classified [facility] [place] [place] [facility] [place]([facility] Deploymen t Clinic) OUTPATIENT [id number] Notes Entered by: ADENIKE BOWIE 04 Aug 2019 0930 ------- ------- ------- ------- -- MOB/PRAFUL TCOM/QA TAR/POLI ZHU 08/03 Released w/o Limitations [facility] [place](SR P Deploym ent Clinic) Miguel Norris [facility] [place] Student [facility]) OUTPATIENT [id number] Notes Entered by: SUKUMAR HAMILTON I 01 May 2020 1315 ------- ------- ------- ------- -- TYPHOID LUCINDA GLASS I. 05/01 Released w/o Limitations [place] [facility]) [facility] Hearing Conservat ion) OUTPATIENT [id number] Annual KIKA UNGER 08/14 Released w/o Limitations [facility](VCZ Hearing Conserv ation) [facility](AMH M01A Red) OUTPATIENT [id number] f/u rt knee pain MARV GONZALEZ 09/24 Released w/o Limitations [facility](AMH M01A Red) [facility] Physical Therapy) OUTPATIENT [id number] Pain in right knee KIM YOUNG 09/26 Released with Work/Duty Limitations [facility]Z Physica l Therapy ) [facility] Physical Therapy) OUTPATIENT [id number] rehab JHONATAN FAJARDO 10/01 Released w/o Limitations [facility] Physica l Therapy ) [facility] Physical Therapy) OUTPATIENT [id number] exJHONATAN Walker 10/03 Released w/o Limitations [facility] Physica l Therapy ) [facility] Physical Therapy) OUTPATIENT [id number] KIM Rose 10/09 Released w/o Limitations [facility] Physica l Therapy ) [facility] Physical Therapy) OUTPATIENT [id number] KIM Rose 10/15 Released w/o Limitations [facility] Physica l Therapy ) [facility] Physical Therapy) OUTPATIENT [id number] KIM Rose 10/17 Released w/o Limitations [facility] Physica l Therapy ) [facility] Physical Therapy) OUTPATIENT [id number] KIM Rose 10/22 Released w/o Limitations [facility] Physica l Therapy ) [facility] Physical Therapy) OUTPATIENT [id number] f/u on knee pain KIM YOUNG 10/23 Released with Work/Duty Limitations [facility] Physica l Therapy ) [facility] Physical Therapy) OUTPATIENT [id number] mri fu KIM YOUNG 11/09 Released with Work/Duty Limitations [facility] Physica l Therapy ) [facility](AMH M01A Red) TELE CONSULT [id number] Notes Entered by: Ari PETERS 21 Nov 2020 1050 ------- ------- ------- ------- -- COVID TEST concern s w/sob CHRISTY LEROY 11/21 Advice Assessment [facility](AMH M01A Red) [facility](LSL Orthopedi cs) OUTPATIENT [id number] Pain in right knee, thomas. howell [email or web address], [phone] TIMOTHY CH 12/13 Released w/o Limitations [facility]SL Orthope dics) [facility] Mass Immunizat ions) OUTPATIENT [id number] Notes Entered by: TIFFANIE CAMPBELL 18 Dec 2020 0932 ------- ------- ------- ------- -- CHLOE WEBBER 12/18 Released w/o Limitations [facility] Mass Immuniz ations) [facility] Orthopedi cs) OUTPATIENT [id number] Preop DOS 30 Nov/ Right knee arthros copy w/ lateral meniscu s repair TIMOTHY CH 01/28 Released w/o Limitations [facility] Orthope dics) [facility]SL Orthopedi cs) TELE CONSULT [id number] Notes Entered by: Gianna KEATING 31 Jan 2021 1321 ------- ------- ------- ------- -- Post Dischar ge follow up HERNANDEZ KEATING 01/31 Other Not Elsewhere Classified [facility] Orthope dics) [facility](AMH M01A Red) OUTPATIENT [id number] Notes Entered by: LAVON SUAZO 05 Feb 2021 1044 ------- ------- ------- ------- -- [facility] MARGUERITE SUAZO 02/05 Released w/o Limitations [facility](AMH M01A Red) [facility](LSL Orthopedi cs) OUTPATIENT [id number] [facility] LAVERN TIPTON RT KNEE MIMI. NADEGE 131.MIL @[facility] [phone] TIMOTHY CH 02/05 Released with Work/Duty Limitations [facility](LSL Orthope dics) [facility] Physical Therapy) OUTPATIENT [id number] meniscu s(R) post op DOS 30 dec KIM YOUNG 02/13 Released with Work/Duty Limitations [facility] Physica l Therapy ) [facility] Physical Therapy) TELE CONSULT [id number] Notes Entered by: AISHWARYA YOUNG 14 Feb 2021 1521 ------- ------- ------- ------- -- POST OP NONCOMP KIM HUERTA 02/14 [facility](VCZ Physica l Therapy ) [facility] Physical Therapy) OUTPATIENT [id number] jaqueline FAJARDO JHONATAN DEL TORO 03/05 Released w/o Limitations [facility]Z Physica l Therapy ) [facility](VCZ Mass Immunizat ions) OUTPATIENT [id number] Notes Entered by: TIFFANIE CAMPBELL 07 Mar 2021 1131 ------- ------- ------- ------- -- COVID IMM MODERNA BOOSTER CHLOE CAMPBELL 03/07 Released w/o Limitations [facility](VCZ Mass Immuniz ations) [facility](AMH M01A Red) TELE CONSULT [id number] Notes Entered by: CECE HASSAN 11 Mar 2021 0802 ------- ------- ------- ------- -- Covid Test AYALA LEAVITT 03/11 Released to Self Care [facility](AMH M01A Red) [facility](AMH M01A Red) TELE CONSULT [id number] Notes Entered by: LORIE PARKER 11 Mar 20212110 ------- ------- ------- ------- -- Polypha rmacy DEC 2020 JOÃO PARKER 03/11 [facility](AMH M01A Red) [facility] Physical Therapy) OUTPATIENT [id number] jaqueline FAJARDOJHONATAN 03/13 Released w/o Limitations [facility]Z Physica l Therapy ) [facility] Physical Therapy) OUTPATIENT [id number] KIM Rose 03/19 Released w/o Limitations [facility](VCZ Physica l Therapy ) [facility](AMH M01A Red) OUTPATIENT [id number] Fatigue , cough, congest ion (x 4 days) SAMIRA MOSCOSO 03/25 Sick at Home/Quarter s [facility](AMH M01A Red) [facility] Physical Therapy) OUTPATIENT [id number] f/u on meniscu s tear post op YOUNGKIM Rosario Katz 03/28 Released with Work/Duty Limitations [facility] Physica l Therapy ) [facility](Z Hearing Conservat ion) OUTPATIENT [id number] MEDPROS KURTIS LIZ 08/13 Released w/o Limitations [facility](VCZ Hearing Conserv ation) [facility](AMH M01B Blue) TELE CONSULT [id number] Notes Entered by: MOJGAN AKBAR 21 Aug 2021 0920 ------- ------- ------- ------- -- [id number] TE [id number] SHARI STEEL 08/21 [facility](AMH M01B Blue) [facility](Z Optometry ) OUTPATIENT [id number] Notes Entered by: Gavi RAMEY Sherita 29 Aug 2021 1438 ------- ------- ------- ------- -- Medpros CHRIS RAMEY 08/29 Released w/o Limitations [facility](Z Optomet ry) [facility](AMH M01A Red) OUTPATIENT [id number] PHDA pre-dep loyment F2F JONAS GANN 08/30 Released w/o Limitations [facility](AMH M01A Red) [facility](AMH M01A Red) TELE CONSULT [id number] Notes Entered by: LORIE PARKER 09 Sep 2021 1558 ------- ------- ------- ------- -- Polypha rmacy JUNE 2021 JOÃO PARKER 09/09 [facility](AMH M01A Red) [facility](AMH M01B Blue) TELE CONSULT [id number] Notes Entered by: STEPH SANTACRUZO NIGEL 07 Oct 2021 1303 ------- ------- ------- ------- -- SEP1 [id number] JAYESH STOUT 10/07 [facility](AMH M01B Blue) [facility](AMH M01A Red) OUTPATIENT [id number] blood pressur e 1 SOLOMON SAADIA DUTTON 10/17 Released w/o Limitations [facility](AMH M01A Red) [facility](AMH M01A Red) OUTPATIENT [id number] blood pressur e #2 SOLOMON SAADIA DUTTON 10/18 Released w/o Limitations [facility](AMH M01A Red) [facility](AMH M01A Red) OUTPATIENT [id number] blood pressur e #3 SOLOMON SAADIA DUTTON 10/21 Released w/o Limitations [facility](AMH M01A Red) [facility](AMH M01B Blue) OUTPATIENT [id number] hyperte nsion wvr for travel TIERNEY NARVAEZ 10/24 Released w/o Limitations [facility](AMH M01B Blue) [facility](AMH M01A Red) TELE CONSULT [id number] Notes Entered by: MARV PERALES 29 Oct 2021 1425 ------- ------- ------- ------- -- med refill MARV GONZALEZ 10/29 [facility](AMH M01A Red) [facility]iol [facility]) TELE CONSULT [id number] Notes Entered by: Rosario RITTER 30 Oct 2021 1447 ------- ------- ------- ------- -- Covid + test result LOUIS RITTER 10/30 [facility] Epidemi ology Clinic) Theater Facility OUTPATIENT [id number] Theater Provider 12/05 Sick at Home/Quarter s Theater Facilit y [facility] Mass Immunizat ions) OUTPATIENT [id number] Notes Entered by: Gary DIAZ 18 Dec 2021 1339 ------- ------- ------- ------- -- Flu Vaccine CHLOE CARLOS 12/18 Released w/o Limitations [facility]) [facility]) OUTPATIENT [id number] Notes Entered by: DIANNE VEE 18 Dec 2021 1340 ------- ------- ------- ------- -- FLU VACCINE CHLOE CARLOS 12/18 Released w/o Limitations [facility]) [facility] M[facility] Red) OUTPATIENT [id number] discuss sleep issues/ possibl e sleep study DAVIS MCKEON 01/17 Released w/o Limitations [facility]) [facility]) OUTPATIENT [id number] Flu Like Symptom s MARV GONZALEZ 01/27 Released w/o Limitations [facility]) [facility]) TELE CONSULT [id number] Notes Entered by: FRITZ STEWART TO 10 Feb 2022 1308 ------- ------- ------- ------- -- Rx refill GIANNI ASHER 02/10 Other Not Elsewhere Classified [facility]) [facility] OUTPATIENT [id number] 5 discuss labs/fa aditya history MARV GONZALEZ 03/12 Released w/o Limitations [facility]) [facility] M[facility]) TELE CONSULT [id number] Notes Entered by: MAGDA SALTER 06 May 2022 1100 ------- ------- ------- ------- -- SAADIA Mcmanus 05/06 Other Not Elsewhere Classified [facility]) [facility] M[facility]) OUTPATIENT [id number] 3 f/up to discuss lab results from 12JAN (f2f) MARV GONZALEZ 05/21 Released w/o Limitations [facility]) [facility] OUTPATIENT [id number] SPEC [id number] ROLANDO PINEDA 05/28 Released w/o Limitations [facility] TELE CONSULT [id number] Notes Entered by: AYSHA RAELLANO 28 May 2022 0942 ------- ------- ------- ------- -- Watch Pat needed thanks! CHRISTY LEROY 05/28 Advice Assessment [facility]) OUTPATIENT [id number] 0 HST STEAMFITTER APPRENTICE CHRISTY LEROY 06/04 Released w/o Limitations [facility]) [facility]) OUTPATIENT [id number] 3 HST DROP OFF CHRISTY LEROY 06/04 Released w/o Limitations [facility]) [facility]) TELE CONSULT [id number] Notes Entered by: Gavi SMALL 05 Jun 2022 1459 ------- ------- ------- ------- -- Med refill SOLOMONSAADIA NATO 06/05 Other Not Elsewhere Classified [facility]) [facility]) OUTPATIENT [id number] Notes Entered by: AISHWARYA MARTIN 06 Jun 2022 1616 ------- ------- ------- ------- -- FILIPE+ YASMIN DELEON 06/06 Released w/o Limitations [facility]) [facility]) OUTPATIENT [id number] PSG RESULTS [id number] N [id number] SHANNON HSARPE 06/09 Released w/o Limitations [facility]) [facility]) OUTPATIENT [id number] 4 f/up to discuss sleep meds DAVIS MCKEON 06/16 Released w/o Limitations [facility]) [facility]) TELE CONSULT [id number] Notes Entered by: ROZINA MCKEON 20 Jun 2022 0954 ------- ------- ------- ------- -- sleep concern s ELIGIO CEVALLOS 06/20 [facility]) [facility]) TELE CONSULT [id number] Notes Entered by: POLI GRADY 06 Oct 2022 1102 ------- ------- ------- ------- -- COVID TEST ELIGIO CEVALLOS 10/06 [facility]) [facility] ) OUTPATIENT [id number] Notes Entered by: Gavi CARNEY 14 Oct 2022 1430 ------- ------- ------- ------- -- MEDPROS and ETS LENNIE CARNEY 10/14 Released w/o Limitations [facility]) [facility]) OUTPATIENT [id number] 2 typhoid CHLOE CARLOS 10/15 Released w/o Limitations [facility]) [facility] M01B Blue) OUTPATIENT [id number] VIRTUAL , PHA part 2, cell: [phone] BREA, TIERNEY M 10/28 Released w/o Limitations [facility]) [facility]) OUTPATIENT [id number] ear flush CEVALLOSELIGIOE 10/29 Released w/o Limitations [facility]) [facility] ) OUTPATIENT [id number] 3 routine health check ORLANDOGHADA CONTRERASIAN 10/29 Released w/o Limitations [facility]) [facility] Hearing Conservat ion) OUTPATIENT [id number] ANNUAL STEPHANE REYNOSO 11/05 Released w/o Limitations [facility]) [facility] M[facility]) OUTPATIENT [id number] 1 PDHRA PART 2, F2F CRUZLIBORIO ROBBROMELIA Vazquez 11/06 Released w/o Limitations [facility]) Procedures Combined list of: 1) Procedures from Department of Veterans Affairs facilities going back up to thelast 18 months, not all VA non-surgical procedures are included; 2) All procedures from the Department of Defense facilities. Procedure Procedure Type Code Date Perfmary Horn e Appendectomy; Appendectomy; 11127 2016 [facility] TYPHOID VACCINE, CAPSULAR POLYSACCHARIDE (VICPS), FOR INTRAMUSCULAR USE 2020 DoD HEPATITIS A VACCINE (HEPA), ADULT DOSAGE, FOR INTRAMUSCULAR USE 2013 [facility] EAR MOLD/INSERT, NOT DISPOSABLE, ANY TYPE 2013 [facility] COLLECTION OF VENOUS BLOOD BY VENIPUNCTURE 2013 DoD ANTHRAX VACCINE, FOR SUBCUTANEOUS OR INTRAMUSCULAR USE 2016 [facility] PURE TONE AUDIOMETRY (THRESHOLD), AUTOMATED; AIR ONLY 2016 DoD ANTHRAX VACCINE, FOR SUBCUTANEOUS OR INTRAMUSCULAR USE 2015 DoD INFLUENZA VACCINE, INACTIVATED (IIV), SUBUNIT, ADJUVANTED, FOR INTRAMUSCULAR USE 2015 DoD IMMUNIZATION ADMINISTRATION (INCLUDES PERCUTANEOUS, INTRADERMAL, SUBCUTANEOUS, OR INTRAMUSCULAR INJECTIONS); 1 VACCINE (SINGLE OR COMBINATION VACCINE/TOXOID) 2015 DoD ANTHRAX VACCINE, FOR SUBCUTANEOUS OR INTRAMUSCULAR USE 2015 [facility] SCREENING TEST OF VISUAL ACUITY, QUANTITATIVE, BILATERAL 2019 [facility] PHYSICAL OR MANIPULATIVE THERAPY PERFORMED FOR MAINTENANCE RATHER THAN ZOROASTRIANISM 2017 DoD PURE TONE AUDIOMETRY (THRESHOLD), AUTOMATED; AIR ONLY 2017 [facility] CASE MANAGEMENT, EACH 15 MINUTES 2016 [facility] TELE ASSESS & MGT SRV PROV QUAL NONPHYS HLTH CARE PRO TO EST PAT,PARENT,GUARD NOT ORIG REL ASSESS & MGT SRV PROV W/IN PREV 7 DAYS NOR LEAD ASSESS & MGT SRV/PX W/IN NXT 24H/SOON APT; 21-30 MIN MED DIS 2019 DoD AUDIOMETRIC TESTING OF GROUPS 2019 DoD IMMUNIZATION ADMINISTRATION (INCLUDES PERCUTANEOUS, INTRADERMAL, SUBCUTANEOUS, OR INTRAMUSCULAR INJECTIONS); 1 VACCINE (SINGLE OR COMBINATION VACCINE/TOXOID) 2019 [facility]D IMMUNIZATION ADMINISTRATION (INCLUDES PERCUTANEOUS, INTRADERMAL, SUBCUTANEOUS, OR INTRAMUSCULAR INJECTIONS); 1 VACCINE (SINGLE OR COMBINATION VACCINE/TOXOID) 2018 [facility] OXYGEN UPTAKE, GAS ANALYSIS; REST, INDIRECT (SEPARATE PROCEDURE) 2018 [facility] NUTRITION CLASSES, NON-PHYSICIAN PROVIDER, PER SESSION 2018 [facility] AUDIOMETRIC TESTING OF GROUPS 2018 [facility] IMMUNIZATION ADMINISTRATION (INCLUDES PERCUTANEOUS, INTRADERMAL, SUBCUTANEOUS, OR INTRAMUSCULAR INJECTIONS); 1 VACCINE (SINGLE OR COMBINATION VACCINE/TOXOID) 2015 [facility] SCREENING TEST OF VISUAL ACUITY, QUANTITATIVE, BILATERAL 2015 [facility] AUDIOMETRIC TESTING OF GROUPS 2015 DoD INFLUENZA VACCINE, INACTIVATED (IIV), SUBUNIT, ADJUVANTED, FOR INTRAMUSCULAR USE 2015 [facility] EAR MOLD/INSERT, NOT DISPOSABLE, ANY TYPE 2022 [facility] FITTING OF SPECTACLES, EXCEPT FOR APHAKIA; MONOFOCAL 2022 DoD REMOVAL IMPACTED CERUMEN USING IRRIGATION/LAVAGE, UNILATERAL 2022 [facility] BRIEF COMM TECH-BASE SERV,E.G. VIRT CHK-IN,BY PHYS/OTH QUAL HCP,RPT E&M SERV,PROV TO EST PT,NOT ORIG FRM REL E/M SERV PROV W/IN PREV 7DAY NOR LEAD TO E/M SRV/PX W/IN NEXT 24HR/SOON GENARO; 5-10 MIN DISC 2022 [facility] IMMUNIZATION ADMINISTRATION (INCLUDES PERCUTANEOUS, INTRADERMAL, SUBCUTANEOUS, OR INTRAMUSCULAR INJECTIONS); 1 VACCINE (SINGLE OR COMBINATION VACCINE/TOXOID) 2022 [facility] SCREENING TEST OF VISUAL ACUITY, QUANTITATIVE, BILATERAL 2022 [facility] SLEEP STUDY, UNATTENDED, SIMULTANEOUS RECORDING; HEART RATE, OXYGEN SATURATION, RESPIRATORY ANALYSIS (EG, BY AIRFLOW OR PERIPHERAL ARTERIAL TONE), AND SLEEP TIME 2022 [facility]D IMMUNIZATION ADMINISTRATION (INCLUDES PERCUTANEOUS, INTRADERMAL, SUBCUTANEOUS, OR INTRAMUSCULAR INJECTIONS); 1 VACCINE (SINGLE OR COMBINATION VACCINE/TOXOID) 2021 [facility] INFLUENZA VIRUS VACCINE, QUADRIVALENT (IIV4), SPLIT VIRUS, PRESERVATIVE FREE, 0.5 ML DOSAGE, FOR INTRAMUSCULAR USE 2021 [facility] EDUCATION &TRAINING, PATIENT SELF-MGT QUALIFIED, NONPHYSICIAN HEALTH HOUSEKEEPING COORDINATOR USING STDIZED CURRICULUM, [id number] W THE PATIENT (COULD INCL CAREGIVER/FAMILY) EA 30 MIN; INDIVIDUAL PATIENT 2021 [facility]D WAIVER SERVICES; NOT OTHERWISE SPECIFIED (NOS) 2021 DoD BLOOD PRESSURE MEASURED (CKD)(DM) 2021 DoD BLOOD PRESSURE MEASURED (CKD)(DM) 2021 DoD BLOOD PRESSURE MEASURED (CKD)(DM) 2021 [facility] WAIVER SERVICES; NOT OTHERWISE SPECIFIED (NOS) 2021 [facility] SCREENING TEST OF VISUAL ACUITY, QUANTITATIVE, BILATERAL 2021 [facility] PATIENT EDUCATION, NOT OTHERWISE CLASSIFIED, NON-PHYSICIAN PROVIDER, INDIVIDUAL, PER SESSION 2021 [facility] THERAPEUTIC PROCEDURE, 1 OR MORE AREAS, EACH 15 MINUTES; THERAPEUTIC EXERCISES TO DEVELOP STRENGTH AND ENDURANCE, RANGE OF MOTION AND FLEXIBILITY 2021 [facility] THERAPEUTIC PROCEDURE(S), GROUP (2 OR MORE INDIVIDUALS) 2021 [facility] APPLICATION OF A MODALITY TO 1 OR MORE AREAS; VASOPNEUMATIC DEVICES 2021 [facility] IMMUNIZATION ADM,IM INJECTION OF SEVERE AC RESPIRATORY SYNDROME CORONAVIR 2 (SARS-COV-2) (CORONAVIR DIS [COVID-19]) VACCINE,MRNA-LNP,S PIKE PROTEIN,PRESERVATI VE FREE,50 MCG/0.25 ML DOSAG,BOOSTER DOSE 2021 [facility] THERAPEUTIC PROCEDURE, 1 OR MORE AREAS, EACH 15 MINUTES; THERAPEUTIC EXERCISES TO DEVELOP STRENGTH AND ENDURANCE, RANGE OF MOTION AND FLEXIBILITY 2021 [facility] PHYSICAL THERAPY EVALUATION:LOW COMPLEXITY,REQ:HIS T W NO PERS FACT &/COMORB THAT IMPACT PLAN OF CARE;CLIN DECIS MAKING OF LOW COMPLEXITY,TYPICAL LY,20 MIN ARE SPENT [id number] W THE PATIENT &/FAMILY 2020 [facility] POSTOPERATIVE FOLLOW-UP VISIT, NORMALLY INCLUDED IN THE SURGICAL PACKAGE, INDICATE THAT EVALUATION & MANAGEMENT SERVICE WAS PERFORMED DURING A POSTOPERATIVE PERIOD REASON RELATED ORIGINAL PROCEDURE 2020 [facility] TELEHEALTH ORIGINATING SITE FACILITY FEE 2020 [facility] ANESTHESIA FOR OPEN OR SURGICAL ARTHROSCOPIC PROCEDURES ON KNEE JOINT;NOT OTHERWISE SPECIFIED 2020 [facility] ULTRASONIC GUIDANCE FOR NEEDLE PLACEMENT (EG, BIOPSY, ASPIRATION, INJECTION, LOCALIZATION DEVICE), IMAGING SUPERVISION AND INTERPRETATION 2020 [facility] UNLISTED SPECIAL SERVICE, PROCEDURE OR REPORT [facility]-ANESTHESIA EVALUATION 2020 [facility] INFLUENZA VIRUS VACCINE, QUADRIVALENT (IIV4), SPLIT VIRUS, PRESERVATIVE FREE, 0.5 ML DOSAGE, FOR INTRAMUSCULAR USE 2020 [facility] WA[facility] SERVICES; NOT OTHERWISE SPECIFIED (NOS) 2020 [facility] RE-EVAL,PHYSICAL THERAPY EST PLAN OF CARE,REQ:EXAM,REV, HX & USE,STAND TESTS &KARINA REQ;REV PLAN OF CARE USING STAND PAT ASSESS INSTR &/KARINA ASSESS FUNC OUTCOME TYP,20 MIN SPENT [id number] W PAT&/FAM 2020 [facility] RE-EVAL,PHYSICAL THERAPY EST PLAN OF CARE,REQ:EXAM,REV, HX & USE,STAND TESTS &KARINA REQ;REV PLAN OF CARE USING STAND PAT ASSESS INSTR &/KARINA ASSESS FUNC OUTCOME TYP,20 MIN SPENT [id number] W PAT&/FAM 2020 [facility] THERAPEUTIC PROCEDURE, 1 OR MORE AREAS, EACH 15 MINUTES; THERAPEUTIC EXERCISES TO DEVELOP STRENGTH AND ENDURANCE, RANGE OF MOTION AND FLEXIBILITY 2020 [facility] THERAPEUTIC PROCEDURE, 1 OR MORE AREAS, EACH 15 MINUTES; THERAPEUTIC EXERCISES TO DEVELOP STRENGTH AND ENDURANCE, RANGE OF MOTION AND FLEXIBILITY 2020 [facility] THERAPEUTIC PROCEDURE(S), GROUP (2 OR MORE INDIVIDUALS) 2020 [facility] THERAPEUTIC PROCEDURE, 1 OR MORE AREAS, EACH 15 MINUTES; THERAPEUTIC EXERCISES TO DEVELOP STRENGTH AND ENDURANCE, RANGE OF MOTION AND FLEXIBILITY 2020 [facility] APPLICATION OF A MODALITY TO 1 OR MORE AREAS; VASOPNEUMATIC DEVICES 2020 [facility] APPLICATION OF A MODALITY TO 1 OR MORE AREAS; VASOPNEUMATIC DEVICES 2020 [facility] THERAPEUTIC PROCEDURE, 1 OR MORE AREAS, EACH 15 MINUTES; THERAPEUTIC EXERCISES TO DEVELOP STRENGTH AND ENDURANCE, RANGE OF MOTION AND FLEXIBILITY 2020 [facility] PATIENT EDUCATION, NOT OTHERWISE CLASSIFIED, NON-PHYSICIAN PROVIDER, INDIVIDUAL, PER SESSION 2020 [facility] Immunization Administration Each Additional Vaccine Immunization Administration Each Additional Vaccine 66988 2015 SARAHI NORRIS DoD Vaccines Viral Palauan Encephalitis Inactivated, Intramuscular Vaccines Viral Palauan Encephalitis Inactivated, Intramuscular 76609 2015 SARAHI NORRIS RIGHT ARM IM 0.5 ML [facility] Screening Test Of Visual Acuity, Quantitative, Bilateral Screening Test Of Visual Acuity, Quantitative, Bilateral 36286 2015 SARAHI NORRIS CLASS 1 UNCORRECTED DoD Immunization Administration One Vaccine Immunization Administration One Vaccine 78155 2015 YESICA OSUNA Small Pox: No skin preparation was performed prior to vaccination with bifurcated needle. Using aseptic technique SM received 15 jabs of perpendicular needle within a 5mm area. SM was injected with .0025ml of (reconstituted [id number] vaccine live vaccinia virus) dermally. SM was screened for severe reaction to previous dosing of this vaccine. SM was screened severe immunodeficiency. SM was screened for recent ischemic and non-ischemic dilated cardiomyopathy or infections. History of any skin disorders, close contact to infants less than 12month or close contact with person. Patient tolerated injection well. Patient advised to remain in clinic for 20 min. post injection and report any unusual reaction. Patient verbalized understanding. No adverse reaction noted post injection. [employer] Vaccines Viral Palauan Encephalitis Inactivated, Intramuscular Vaccines Viral Palauan Encephalitis Inactivated, Intramuscular 57316 2015 YESICA OSUNA FAROESE ENCEPH: NOT , Using sterile technique skin site cleansed with a suitable germicide and site dry prior to vaccination. Vaccination was administered using sterile technique. Patient tolerated injection well. Patient advised to remain in clinic for 20 min. post injection and report any unusual reaction. Patient verbalized understanding. No adverse reaction noted post injection. [facility] Meningococcal Conjugate Vaccine Tetravalent (A C Y W-135) 2015 YESICA OSUNA Meningococcal: Using sterile technique skin site cleansed with a suitable germicide and site dry prior to vaccination. SM was injected with 0.5mL of (Meningococcal polysaccharide vaccine, Goups A, X, Y and W-135 combined) subcutaneous. SM was screened for severe reaction to previous dosing of this vaccine. SM was screened for possible latex sensitivity. ). Patient tolerated injection well. Patient advised to remain in clinic for 20 min. post injection and report any unusual reaction. Patient verbalized understanding. No adverse reaction noted post injection. [facility] Typhoid Vaccine Vi Capsular Polysaccharide, For Intramus Use Typhoid Vaccine Vi Capsular Polysaccharide, For Intramus Use 58828 2015 YESICA OSUNA Typhoid Vi: Using sterile technique skin site cleansed with a suitable germicide and site dry prior to vaccination. SM was injected with 0.5mL of (Typhoid Vi Polysaccharide Vaccine) intramuscular. SM was screened for severe reaction to previous dosing of this vaccine. SM was screened for possible latex sensitivity. ). Patient tolerated injection well. Patient advised to remain in clinic for 20 min. post injection and report any unusual reaction. Patient verbalized understanding. No adverse reaction noted post injection. [facility] Anthrax Vaccine, For Subcutaneous Use Anthrax Vaccine, For Subcutaneous Use 03236 2015 YESICA OSUNA Anthrax : No latex allergy, Safe for nursing mothers, no hx of Guillain Paragonah', Using sterile technique skin site cleansed with a suitable germicide and site dry prior to vaccination. SM was injected with 0.5mL of (Anthrax Vaccine Adsorbed) intramuscular. SM was screened for severe reaction to previous dosing of this vaccine. SM was screened for possible latex sensitivity. ). Patient tolerated injection well. Patient advised to remain in clinic for 20 min. post injection and report any unusual reaction. Patient verbalized understanding. No adverse reaction noted post injection. [facility] Screening Test Of Visual Acuity, Quantitative, Bilateral Screening Test Of Visual Acuity, Quantitative, Bilateral 91359 2015 MIMI DEL CASTILLO Venipuncture Venipuncture 81470 2015 MIMI DEL CASTILLO [facility] Testing [facility] Testing 66202 2015 RAEANN SAEED [facility] Vaccines Viral Polio, Inactivated (Salk) Vaccines Viral Polio, Inactivated (Salk) 12956 2015 [facility]ICA [facility]SUNA Vaccination: Using sterile technique skin site cleansed with a suitable germicide and site dry prior to vaccination. Vaccination was administered using sterile technique. Patient tolerated injection well. Patient advised to remain in clinic for 20 min. post injection and report any unusual reaction. Patient verbalized understanding. No adverse reaction noted post injection. [facility] Hepatitis A Vaccine Adult Dosage (Intramuscular Use) Hepatitis A Vaccine Adult Dosage (Intramuscular Use) 74057 2013 NICK LUNDBERG Hep A (Adult); Series #: 1; 1.0 mL; IM; Right Arm; Mfg: [email or web address]; Lot: [id number]; VIS given (Marguerite: 12/24/10). [facility] Immunization Administration One Vaccine Immunization Administration One Vaccine 96204 2013 NICK LUNDBERG Ear Protector Attenuation Measurements Ear Protector Attenuation Measurements 64726 2013 GERRY WASHINGTON Ear mold/insert, not disposable, any type 2013 GERRY WASHINGTON Cerumen Removal Left Ear Irrigation Cerumen Removal Left Ear Irrigation 43717 2013 GERRY WASHINGTON Cerumen Removal Left Ear Suction Cerumen Removal Left Ear Suction 57894 2013 GERRY WASHINGTON Cerumen Removal Right Ear Irrigation Cerumen Removal Right Ear Irrigation 45905 2013 GERRY WASHINGTON Cerumen Removal Right Ear Suction Cerumen Removal Right Ear Suction 09683 2013 GERRY WASHINGTON Venipuncture Venipuncture 85913 2013 PAULA HERNANDEZ Pulmon Function - O2 Uptake - Gas Analysis Rest, Ind Pulmon Function - O2 [place] [address] 2018 IWONA MAZARIEGOS Patient Counseling Medical Management Individual Patient Patient Counseling Medical Management Individual Patient [id number] 2018 IWONA MAZARIEGOS Preventive Medicine Physical Exam Vital Signs Recorded Preventive Medicine Physical Exam Vital Signs Recorded 2018 IWONA MAZARIEGOS Nutrition cla es, non-physician provider, per se ion 2018 QUETA MUNGUIA [facility] Audiometry Group Testing Audiometry Group Testing 55570 2018 TREVOR LOPEZ Threshold Audiogram (Pure Tone) Automated Threshold Audiogram (Pure Tone) Automated [id number] 2017 MOHAN RILEY JR [facility] Case Management, each 15 minutes 2016 NAHOMY SOSA [facility] Coordinated care fee, maintenance rate 2016 NAHOMY SOSA [facility] Immunization Administration One Vaccine Immunization Administration One Vaccine 86946 2016 TIFFANY SUAREZ [facility] Immunization Administration One Vaccine Immunization Administration One Vaccine 61013 2015 [facility] Immunization Administration One Vaccine Immunization Administration One Vaccine 34010 2015 NIELS ROBIN [facility] Immunization Administration One Vaccine Immunization Administration One Vaccine 86694 2015 [facility] Tdap Vaccine Tdap Vaccine 56826 2015 [facility] Immunization Administration One Vaccine Immunization Administration One Vaccine 19340 2015 SARAHI NORRIS [facility] Mobilization Soft Ti ue Mobilization Soft Tissue 98149 GIANNI CALABRESE Physical Therapy: ___ Se ion Segments, 15 Minutes Each Physical Therapy: ___ Session Segments, 15 Minutes Each 38465 GIANNI CALABRESE Needle, sterile, any size, each GIANNI CALABRESE Physical or manipulative therapy performed for maintenance rather than pentecostalism GIANNI CALABRESE Typhoid Vaccine Vi Capsular Polysaccharide, For Intramus Use Typhoid Vaccine Vi Capsular Polysaccharide, For Intramus Use 77805 LUCINDA GLASS I. Typhoid, ViCPs; Series #: 1; 0.5 mL; IM; Left Arm; Mfg: [employer]; Lot: [id number]; VIS given (Marguerite: 12/29/2018). [facility] Immunization Administration One Vaccine Immunization Administration One Vaccine 09568 LUCINDA GLASS I. [facility] Audiometry Group Testing Audiometry Group Testing 74556 CHICA CULP [facility] Non-Physician Phone Call To Pt/Provider Lengthy (21-30 min) Non-Physician Phone Call To Pt/Provider Lengthy (21-30 min) 77086 MARIELA JEAN BAPTISTE [facility] Threshold Audiogram (Pure Tone) Automated Threshold Audiogram (Pure Tone) Automated [id number] KIKA UNGER [facility] Patient education, not otherwise cla ified, non-physician provider, individual, per se ion KIKA UNGER [facility] Physical Therapy: ___ Se ion Segments, 15 Minutes Each Physical Therapy: ___ Session Segments, 15 Minutes Each [id number] ROY 25 minutes one on one with patient who performed exercises to improve flexibility, strength, balance and stability for rehab per flow chart above. [facility] Physical Medicine [facility] - Group Physical Therapy Session 31219 JHONATAN FAJARDO KATEY Patient performed treatment exercises per flow chart above with one other patient in a group session for rehab. [facility] Modalities Vasopneumatic Device Modalities Vasopneumatic Device 13831 TANA JHONATAN DLE TORO Patient received cryotherapy with pneumatic pressure for prescribed time in above flow chart for rehab. Girth measurement 2 inches proximal the knee joint was 43 cm prior and post cryotherapeutic pneumatic treatment. for rehab. [facility] Modalities Vasopneumatic Device Modalities Vasopneumatic Device 59750 NORTHCLEMENCIA JHONATAN DEL TORO Patient received cryotherapy with pneumatic pressure for prescribed time in above flow chart for rehab. Girth measurement 2 inches proximal the knee joint was 39.5 cm prior and post cryotherapeutic pneumatic treatment. for rehab. [facility] Physical Therapy: ___ Se ion Segments, 15 Minutes Each Physical Therapy: ___ Session Segments, 15 Minutes Each DONALD CASTANEDA 35 minutes one on one with patient who performed exercises to improve flexibility, strength, balance and stability for rehab per flow chart above. [facility] Physical Therapy: ___ Se ion Segments, 15 Minutes Each Physical Therapy: ___ Session Segments, 15 Minutes Each DONALD CASTANEDA 15 minutes one on one with patient who performed exercises to improve flexibility, strength, balance and stability for rehab per flow chart above. [facility] Physical Therapy: ___ Se ion Segments, 15 Minutes Each Physical Therapy: ___ Session Segments, 15 Minutes Each 87562 DONALD WALKER 40 minutes one on one with patient who performed exercises to improve flexibility, strength, balance and stability for rehab per flow chart above. [facility] Physical Therapy: ___ Se ion Segments, 15 Minutes Each Physical Therapy: ___ Session Segments, 15 Minutes Each [id number] DONALD WALKER 27 minutes one on one with patient who performed exercises to improve flexibility, strength, balance and stability for rehab per flow chart above. [facility] Physical Medicine Physical Therapy Re-Evaluation Physical Medicine Physical Therapy Re-Evaluation 80039 DONALD YOUNG [facility] Telehealth originating site facility MARGUERITE Rios [facility] Postoperative Visit, Without Charge Postoperative Visit, Without Charge [id number] TIMOTHY CH [facility] Exercise equipment DONALD YOUNG [facility] Physical Therapy Gait Training Physical Therapy Gait Training 28783 DONALD YOUNG [facility] Crutches, underarm, wood, adjustable or fixed, pair, with pads, tips and handgrips DONALD YOUNG [facility] Physical Therapy: ___ Se ion Segments, 15 Minutes Each Physical Therapy: ___ Session Segments, 15 Minutes Each [id number] ROY 45 minutes one on one with patient who performed exercises to improve flexibility, strength, balance and stability for rehab per flow chart above. [facility] Physical Therapy: ___ Se ion Segments, 15 Minutes Each Physical Therapy: ___ Session Segments, 15 Minutes Each 14423JHONATAN ROY 30 minutes one on one with patient who performed exercises to improve flexibility, strength, balance and stability for rehab per flow chart above. [facility] Modalities Vasopneumatic Device Modalities Vasopneumatic Device 27369 JHONATAN FAJARDO Patient received cryotherapy with pneumatic pressure for prescribed time in above flow chart for rehab. Girth measurement 3 inches proximal the knee joint was 46 cm prior and post cryotherapeutic pneumatic treatment. for rehab. [facility] Physical Medicine - Group Physical Therapy Se ion Physical Medicine - Group Physical Therapy Session [id number] DONALD WALKER [facility] Screening Test Of Visual Acuity, Quantitative, Bilateral Screening Test Of Visual Acuity, Quantitative, Bilateral 78744 CHRIS RAMEY DoD Waiver services; not otherwise specified (NOS) JONAS GANN DoD A e ment & Intervention Blood Pre ure Measured Assessment & Intervention Blood Pressure Measured 2000F SAADIA CARBAJAL [facility] Patient Counseling Medical Management Individual Patient Patient Counseling Medical Management Individual Patient [id number] LOUIS RITTER [facility] Sleep Study Unattended Record: Heart Rate, O2 Sat, Resp Analysis, Sleep Time Sleep Study Unattended Record: Heart Rate, O2 Sat, Resp Analysis, Sleep Time 47351 YASMIN DELEON - This encounter documents the professional component workload associated with this sleep study. The full report is located in [facility]. The [facility] note is dated to reflect the date the study was actually performed. Interpretation of the study was completed on the date of this encounter. [facility] Typhoid Vaccine Vi Capsular Polysaccharide, For Intramus Use Typhoid Vaccine Vi Capsular Polysaccharide, For Intramus Use 23124 WILBERT STOKES Typhoid, ViCPs; Series #: 1; 0.5 mL; IM; Left Arm; Mfg: [employer]; Lot: [id number]; VIS given (Marguerite: 12/29/2018). DoD A e ment & Intervention Use Of Tobacco A e ed Assessment & Intervention Use Of Tobacco Assessed 1000F TIERNEY NARVAEZ Brief communication technology-based service, e.g. virtual check-in, by a physician or other qualified health care profsherita last who can report evaluation and management services, provided to an established patient, not originating from a related E/M service provided within the previous 7 days nor leading to an E/M service or procedure within the next 24 hours or soonest available appointment; 5-10 minutes of medical discu ion TIERNEY NARVAEZ Cerumen Removal Right Ear Irrigation Cerumen Removal Right Ear Irrigation 97449 ELIGIO CEVALLOS Cerumen Removal Left Ear Irrigation Cerumen Removal Left Ear Irrigation 48945 ELIGIO CEVALLOS Ophthalmological New Patient Start Comprehensive Care Ophthalmological New Patient Start Comprehensive Care 99044 GHADA PERRY Determination Of Refractive State Determination Of Refractive State 81091 GHADA PERRY Fundus Photography Fundus Photography 69749 GHADA PERRY Spectacles Services Fitting Monofocals (Not For Aphakia) [facility] Fitting Monofocals (Not For Aphakia) 93445 GHADA PERYR [facility] Ear mold/insert, not disposable, any type RAFAEL BRENNER [facility] Social History Combined list of available smoking, tobacco, and other social history from [facility] Defense and [facility] facilities. Social History Type Response Date Comment Sourc e Smoking Status Never (less than 100 in lifetime) 07/02/2020 Unknown Organization Sex Representation Male (finding) 05/09/2020 Un known Organization Sexual Orientation Ambula tory Pharmacy Gender identity Ambulator [facility] Pharmacy This section is an empty social history section. DoD Assessment and Plan Combined list of future care activities from Department of Defense and Veterans Affairs facilities (e.g., assessment and plan notes, appointments, orders, and referrals). Additional future care activities may be listed in the Plan of Care section. Result Assessment and Plan Date Source Assessment and Plan Extracted from:Title : HTN follow-up Author: DAVIS MCKEON Date: 06/09/23 1. E ssential hypertension Will change pt BP med at this time the 5 day BP check was elevated. Pt is to STOP the current BP med and will follow up in 2 weeks prior to getting out of the [employer]. he will also have labs completed as well. Discussed possible side effects and when to return soon. Pt did not take meds this am. Also discussed with this pt finding a PCM to where he will be moving. Changing your lifestyle can go a long way toward controlling high blood pressure. Recommendations needed are to make lifestyle changes including: Eating a heart-healthy diet with less salt, Getting regular physical activity, Maintaining a healthy weight or losing weight if you're overweight or obese Limiting the amount of alcohol you drink Ordered: losartan-hydroCHLOROthiazide(lo sartan-hydroCHLOROthiazide 50mg-12.5mg oral tablet), 1 tab(s), Oral, Daily, for blood pressure, # 90 tab(s), 3 total refill(s), Maintenance, 1 tab(s) Oral Daily,Instr:for blood pressure, Pharmacy: [facility] [Federal Rx: #90 last filled 06/09/23] Comprehensive Metabolic Panel Extracted from:Title: B/P Check #5 Author: BHARTI TOTH RN Date: 06/08/23 Patient came in today to be seen for b/p check. Patient verified using 2 identifiers. Manual B/P as follows: -RA- 142/96 -LA- 146/98 -HR- 106 bpm Patient denies having any caffeine or nicotine today. Patient did state he had taken his BP medicine. Patient denies any signs/ symptoms of hypo/hypertension at this time. Patient did verbalize understanding to appointment details with provider tomorrow. Extracted from:Title: Office Clinic Note Author: NAYELI ALVAREZ RN Date: 06/05/23 BP - High blood pressure Extracted from:Title: Office Clinic Note-BP check day 3 Author: LUKE PATIÑO, RN Date: 06/04/23 Hypertension Extracted from:Title: Office Clinic Note Author: NAYELI ALVAREZ RN Date: 06/03/23 BP - High blood pressure Extracted from:Title: Office Clinic Note Author: NAYELI ALVAREZ RN Date: 06/02/23 High blood pressure Impacted wax Extracted from:Title: HTN and Profile Author: DAVIS MCKEON Date: 06/01/23 1. E ssential hypertension Pt is to come in for 5 day BP check and will follow up if further eval is needed. Pt is currently day 3 [place] the states still jet lagged, no CPAP (luggage delayed) and caffeine this am. Changing your lifestyle can go a long way toward controlling high blood pressure. Recommendations needed are to make lifestyle changes including: Eating a heart-healthy diet with less salt, Getting regular physical activity, Maintaining a healthy weight or losing weight if you're overweight or obese Limiting the amount of alcohol you drink 2. O ther low back pain Extracted from:Title: Ear Irrigation Note Author: [facility] Date: 02/25/23 1. I mpacted cerumen of bilateral ears Patient presents for Ear flushing, due to b/l ear impaction. Patient denies any pain or discharge to inner ears. Patient denies decreased loss of hearing. Both ears irrigated and flushed of impacted cerumen. Patient tolerated procedure well. Ordered Debrox ear drops to assist with home ear wax removal. Marv Argueta COUTURE ALTERATIONS DRESSMAKER I mmunizations [facility] Extracted from:Title: Office Clinic Note Author: TIERNEY NARVAEZ Date: 02/19/23 1. 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 Pt to continue physical therapy at [facility]. Medication ordered according to Neurosurgeon's recommendation. Pt given precautions regarding GI side effects of corticosteroid and NSAIDS.? Lansoprazole 30mg QAM for GI protection. F/U with Neurosurgery if possible otherwise will need to establish care after leaving the local area. [facility]U Ordered: dexAMETHasone(dexAMETHasone 4 mg oral tablet), See Instructions, 2 TABS in the morning for 4 days then 1 TAB in the morning for 7 days, # 15 tab(s), 0 total refill(s), Acute, 2 TABS in the morning for 4 days then 1 TAB in the morning for 7 days, Pharmacy: [facility] [Not filled] diclofenac(diclofenac sodium 75 mg oral delayed release tablet), 1 tab(s), Oral, BID, # 14 tab(s), 0 total refill(s), Maintenance, 1 tab(s) Oral BID,x7 days, Pharmacy: [facility] [Not filled] lansoprazole(lansoprazole 30 mg oral delayed release capsule), 1 cap(s), Oral, Daily, # 60 cap(s), 2 total refill(s), Maintenance, 1 cap(s) Oral Daily, Pharmacy: [facility] [Not filled] Tierney Narvaez PA-C, [facility] Extracted from:Title: [facility] [place] Author: MAGDIEL PALM RN Date: 01/02/23 Health education given Client educated on the importance of determining daily caloric need and how this relates to managing weight. Recommend that client conduct a follow-up metabolic assessment in 90 days. client verbalized understanding. Conducted health coaching, reviewed client barriers and set SMART goal of ? to overcome barrier. Client was encouraged to continue care plan as outlined by their Patient Intake Representative and that services provided by the [facility] team are meant to be an addition to that care plan. Client stated understanding. Client advise of the [facility]'s stress and sleep management classes/tools. Extracted from:Title: [facility] Bod Repeat Author: MAGDIEL PALM RN Date: 12/26/22 Health education given Test results explained to client. Client informed of normative body fat values and given an explanation of fat mass vs. fat free mass. Educator addressed client's questions and concerns. Encouraged client to return for follow up in 30 days for BODPOD. Conducted health coaching, reviewed client barriers and set SMART goal to over come barrier. Client advised to obtain a recent META to help him meet his goals. Extracted from:Title: ETS physical Author: DAVIS MCKEON Date: 11/28/22 1. 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 2. E ssential hypertension Controlled on current medication regimen 3. F lat foot [pes planus] (acquired), left foot Bilaterally pes planus with chronic concerns. 4. A cquired pes planus of right foot see left foot 5. R ight knee pain on going concern 6. L eft shoulder pain on going concern Extracted from:Title: ETS Part 1 Author: DAVIS MCKEON Date: 11/27/22 1. E XAM, OCCUPATIONAL, SKILLED NURSING OR SEPARATION FROM [employer], SHORT 2807-1 completed for this vp customer service Extracted from:Title: Office Clinic Note- PHHRA 2900 Author: MARLO LENNON NP Date: 07/24/20 1. A SSESSMENT, POST DEPLOYMENT, DOCUMENTED ON FO0924 (PDHRA) PDHRA ( DD Form 2900) Deployer: MIMI LAWRENCE Signed by: ari markham Nurse Practitioner o n Deployer reports most recent deployment was to [facility] a nd has deployed 1 t imes before in the past five years. VA Disability Information No VA Disability Information Available. 1. Address concerns identified on deployer questions 1 and 2 Deployer Comments : N /A Deployer Comments: N /A Was the [place]'s e-Profile and/or AHLTA history reviewed to determine the presence of mTBI/Concussion(s) to assess the need for functional limitations or additional evaluation or treatment after this assessment?:?No If Yes, number of occurrences: 0 Section 2: Injury/Illness that Occurred during Deployment DQ3: Still having a problem related to an injury that occurred during deployment: N o Section 4: Medical Care Following Deployment Deployer's response or comments: N /A Deployer's response or comments: N /A Section 5: Post-Deployment Health Concerns. Symptoms reported as 'Bothered a little': P ain in the arms, legs, or joints (knees, hips, etc.), Shortness of breath, Feeling tired or having low energy PHQ-15 (Physical Symptom) Severity Score: M inimal <4 (0-4) Does deployer have evidence of high generalized post-deployment physical symptoms (a score of 1 5 on the PHQ15 physical symptoms scale - deployer questions 8a. - 8o.) or is 'bothered a lot' by specific symptoms listed in 8a. 8 dd.?: N o Section 6: Major Life Stressor DQ9: Major Life Stressor indicated: N o Section 7: Mental Health/Medication Screening Deployer Comments: N /A Deployers Comments: N /A Section 8: Alcohol Abuse Screening AUDIT-C Screening Score: 2 Section 9: PTSD Screening DQ13: Deployer iwona 'yes' on two or more of questions 13a through 13d: N o Section 10: Depression Screening DQ14: Marked 'More than half the days' or 'Nearly every day' on 14a or 14b:?No Section 11: Environmental Exposure Concerns DQ15: Indicate concern about possible exposure: N o Animal bites: N o Animal bodies (): N o Chlorine gas: N o Depleted uranium: N o Excessive vibration: N o Fog oils (smoke screen): N o Garbage: N o Human blood, body fluids, body parts, or bodies: N o Industrial pollution: N o Insect bites: N o Ionizing radiation: N o JP8 or other fuels: N o Lasers: N o Loud noises: N o Paints: N o Pesticides: N o Radar/Microwaves: N o Sand/dust: N o Smoke from burning trash or feces: N o Smoke from oil fire: N o Solvents: N o Tent heater smoke: N o Vehicle or truck exhaust fumes: N o Chemical, biological, radiological warfare agent: N o Other exposures to toxic chemicals or materials, such as ammonia, nitric acid, etc: N o Section 12: Rabies Exposure Screening DQ16: Indicated Animal Bite or Scratch during depolyment: N o Section 13: Suicide Risk Evaluation. PQ13: Bothered by suicidal thoughts in the past month: N o Section 14: Violence/Harm Risk Evaluation. PQ14: Bothered by thoughts of hurting or losing control with someone in the past month:: N o Section 15: Deployer Issues with Assessment PQ15: Deployer declined to complete form: N o Deployer declined to complete interview/assessment: N o Section 16: Summary of Provider Identified Concerns PQ16: Indicated 'Yes' to Concern: Y es Section 20: Supplemental Services Recommended / Information Provided PQ20: Provider indicated 'Yes' to: Appointment Assistance: N o Contract Support: N o Community Service: N o Trigonometry Tutor: N o Health Education and Information: N o Health Care Benefits and Resources Information: N o In Transition: N o Family Support: N o One Source: N o Provider: N o [facility] or [facility]: N o [facility]: N o Other: N o Provider's Name: ari markham Provider's Title: Eugene guerra Practitioner Provider's Signature: Rafael burks Provider's Date: Provider s Name: Ari Lennon Provider s Signature: Provider s Signature: ari markham providers comments: N o concerns identified or voiced. Ordered: Office Visit Level 2 New 70686 Extracted from:Title: Office Clinic Note- PHA Author: MARLO LENNON NP Date: 07/09/20 1. E XAM/ASSESSMENT, OCCUPATIONAL, TEAM COORDINATOR PERIODIC HEALTH ASSESSMENT (PHA) D epartment of Defense personnel are required to present to [place] Readiness Processing for annual or periodic Medical Health Assessment to determine Medical Readiness. It is well known that Department of Defense personnel are often expected to exhaust all their innate mental, physical and emotional capabilities without breaking down. Many individuals will avoid taking care of their physical and mental health in order to meet their perception of those expectations. D uring this evaluation, a review was conducted to ascertain what medical, psychiatric and preventive health services are necessary and appropriate for age, gender, family history, allergies, risky behaviors, etc. in order to guide and encourage members of DoD to make healthier choices which will improve health outcomes thus maintaining each individual in a Medically Available status.? I have personally reviewed with the individual all the formatted and/or free text responses on the online questionnaire and/or the required hardcopy documents which are scanned into [facility].? I ndividual is M EDICALLY AVAILABLE f or deployment. Ordered: Office Visit Level 2 New 87463 2. T uberculosis screening status D epartment of defense personnel no longer have to have routine periodic TB testing. TB testing is to be performed on only those individuals who qualify according to target guidelines ([place] MEDCOM Reg 40-64) Tuberculosis (TB) Surveillance and Control Program. Targeted screening performed using [employer] form 829, 830, or 831(or Six3 6224) and is reviewed with the individual. TB testing?WAS NOT g ivhoward at this time. Ordered: Office Visit Level 2 New 82743 3. E ye/vision finding ( 81073) Screening Test Of Visual Acuity, Quantitative, Bilateral - Department of Defense personnel are required to present to [place] Readiness Processing for annual or periodic Medical Health Assessment to determine Medical Readiness. It is well known that Department of defense personnel require periodic vision screening or optometric evaluation at least annually in order to maintain medical readiness which can be affected by changes in vision and visual impairment. Visual acuity was screened using the [employer] vision screening device. R esults are entered into the vital signs of this encounter, and/or into the PHA and/or on the SRP coversheet which is scanned into the [facility] folder. Ordered: Office Visit Level 2 New 35323 4. E levated blood pressure reading without diagnosis of hypertension - Recommend patient self monitor blood pressure and follow up with PCM if systolic remains above 129 or diastolic remains above 89. Ordered: Office Visit Level 2 New 32286 Extracted from:Title: R knee injury Author: MIMI REID MD Date: 07/02/20 1. I njury of right knee, K nee injury Suspect soft tissue injury as origin of pain. Doubt fracture, ligamentous or meniscal tear.? No indication for imaging at this time. Recommended conservative therapy (written for temporary profile x 1 week), use of NSAIDs/ice. Follow-up as needed. Ordered: Office Visit Level 3 Est 12815 2. H igh blood pressure Asymptomatic. R ecommended follow up with PCM after graduation and [facility], to consider re-initiation of pharmacotherapy. Ordered: Office Visit Level 3 Est 49481 08/05/[address] [place] [address] [place] Assessment and Plan Extracted from:Title : HTN follow-up Author: DAVIS MCKEON Date: 06/09/23 1. E ssential hypertension Will change pt BP med at this time the 5 day BP check was elevated. Pt is to STOP the current BP med and will follow up in 2 weeks prior to getting out of the [employer]. he will also have labs completed as well. Discussed possible side effects and when to return soon. Pt did not take meds this am. Also discussed with this pt finding a PCM to where he will be moving. Changing your lifestyle can go a long way toward controlling high blood pressure. Recommendations needed are to make lifestyle changes including: Eating a heart-healthy diet with less salt, Getting regular physical activity, Maintaining a healthy weight or losing weight if you're overweight or obese Limiting the amount of alcohol you drink Ordered: losartan-hydroCHLOROthiazide(lo sartan-hydroCHLOROthiazide 50mg-12.5mg oral tablet), 1 tab(s), Oral, Daily, for blood pressure, # 90 tab(s), 3 total refill(s), Maintenance, 1 tab(s) Oral Daily,Instr:for blood pressure, Pharmacy: [facility] [Federal Rx: #90 last filled 06/09/23] Comprehensive Metabolic Panel Extracted from:Title: B/P Check #5 Author: BHARTI TOTH RN Date: 06/08/23 Patient came in today to be seen for b/p check. Patient verified using 2 identifiers. Manual B/P as follows: -RA- 142/96 -LA- 146/98 -HR- 106 bpm Patient denies having any caffeine or nicotine today. Patient did state he had taken his BP medicine. Patient denies any signs/ symptoms of hypo/hypertension at this time. Patient did verbalize understanding to appointment details with provider tomorrow. Extracted from:Title: Office Clinic Note Author: NAYELI ALVAREZ RN Date: 06/05/23 BP - High blood pressure Extracted from:Title: Office Clinic Note-BP check day 3 Author: LUKE PATIÑO RN Date: 06/04/23 Hypertension Extracted from:Title: Office Clinic Note Author: NAYELI ALVAREZ RN Date: 06/03/23 BP - High blood pressure Extracted from:Title: Office Clinic Note Author: NAYELI ALVAREZ RN Date: 06/02/23 High blood pressure Impacted wax Extracted from:Title: HTN and Profile Author: DAVIS MCKEON Date: 06/01/23 1. E ssential hypertension Pt is to come in for 5 day BP check and will follow up if further eval is needed. Pt is [place] 3 [place] states still [place], no CPAP (luggage delayed) and caffeine this am. Changing your lifestyle can go a long way toward controlling high blood pressure. Recommendations needed are to make lifestyle changes including: Eating a heart-healthy diet with less salt, Getting regular physical activity, Maintaining a healthy weight or losing weight if you're overweight or obese Limiting the amount of alcohol you drink 2. O ther low back pain Extracted from:Title: Ear Irrigation Note Author: MARV ARGUETA Date: 02/25/23 1. I mpacted cerumen of bilateral ears Patient presents for Ear flushing, due to b/l ear impaction. Patient denies any pain or discharge to inner ears. Patient denies decreased loss of hearing. Both ears irrigated and flushed of impacted cerumen. Patient tolerated procedure well. Ordered Debrox ear drops to assist with home ear wax removal. Marv Argueta [employer]TERATIONS DRESSMAKER I mmunizations [facility] Extracted from:Title: Office Clinic Note Author: TIERNEY NARVAEZ Date: 02/19/23 1. 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 Pt to continue physical therapy at [facility]. Medication ordered according to Neurosurgeon's recommendation. Pt given precautions regarding GI side effects of corticosteroid and NSAIDS.? Lansoprazole 30mg QAM for GI protection. F/U with Neurosurgery if possible otherwise will need to establish care after leaving the local area. PVU Ordered: dexAMETHasone(dexAMETHasone 4 mg oral tablet), See Instructions, 2 TABS in the morning for 4 days then 1 TAB in the morning for 7 days, # 15 tab(s), 0 total refill(s), Acute, 2 TABS in the morning for 4 days then 1 TAB in the morning for 7 days, Pharmacy: [facility] [Not filled] diclofenac(diclofenac sodium 75 mg oral delayed release tablet), 1 tab(s), Oral, BID, # 14 tab(s), 0 total refill(s), Maintenance, 1 tab(s) Oral BID,x7 days, Pharmacy: [facility] [Not filled] lansoprazole(lansoprazole 30 mg oral delayed release capsule), 1 cap(s), Oral, Daily, # 60 cap(s), 2 total refill(s), Maintenance, 1 cap(s) Oral Daily, Pharmacy: [facility] [Not filled] Tierney Narvaez PA-C, [facility] Extracted from:Title: [facility] [place] Author: MAGDIEL PALM RN Date: 01/02/23 Health education given Client educated on the importance of determining daily caloric need and how this relates to managing weight. Recommend that client conduct a follow-up metabolic assessment in 90 days. client verbalized understanding. Conducted health coaching, reviewed client barriers and set SMART goal of ? to overcome barrier. Client was encouraged to continue care plan as outlined by their Patient Intake Representative and that services provided by the [facility] team are meant to be an addition to that care plan. Client stated understanding. Client advise of the [facility]'s stress and sleep management classes/tools. Extracted from:Title: [facility] Bod Repeat Author: MAGDIEL PALM, RN Date: 12/26/22 Health education given Test results explained to client. Client informed of normative body fat values and given an explanation of fat mass vs. fat free mass. Educator addressed client's questions and concerns. Encouraged client to return for follow up in 30 days for BODPOD. Conducted health coaching, reviewed client barriers and set SMART goal to over come barrier. Client advised to obtain a recent META to help him meet his goals. Extracted from:Title: ETS physical Author: DAVIS MCKEON Date: 11/28/22 1. E XAM, OCCUPATIONAL, SKILLED NURSING OR SEPARATION FROM [employer], LONG Completed physical with the following problems noted on the physical. 2. E ssential hypertension Controlled on current medication regimen 3. F lat foot [pes planus] (acquired), left foot Bilaterally pes planus with chronic concerns. 4. A cquired pes planus of right foot see left foot 5. R ight knee pain on going concern 6. L eft shoulder pain on going concern Extracted from:Title: ETS Part 1 Author: DAVIS MCKEON Date: 11/27/22 1. E XAM, OCCUPATIONAL, SKILLED NURSING OR SEPARATION FROM [employer], SHORT 2807-1 completed for this vp customer service Extracted from:Title: Office Clinic Note- PHHRA 2900 Author: MARLO LENNON NP Date: 07/24/20 1. A SSESSMENT, POST DEPLOYMENT, DOCUMENTED ON [id number] (PDHRA) PDHRA ( DD Form 2900) Deployer: MIMI LAWRENCE Signed by: ari markham Nurse Practitioner o n Deployer reports most recent deployment was to [facility] a nd has deployed 1 t imes before in the past five years. VA Disability Information No VA Disability Information Available. 1. Address concerns identified on deployer questions 1 and 2 Deployer Comments : N /A Deployer Comments: N /A Was the [place]'s e-Profile and/or AHLTA history reviewed to determine the presence of mTBI/Concussion(s) to assess the need for functional limitations or additional evaluation or treatment after this assessment?:?No If Yes, number of occurrences: 0 Section 2: Injury/Illness that Occurred during Deployment DQ3: Still having a problem related to an injury that occurred during deployment: N o Section 4: Medical Care Following Deployment Deployer's response or comments: N /A Deployer's response or comments: N /A Section 5: Post-Deployment Health Concerns. Symptoms reported as 'Bothered a little': P ain in the arms, legs, or joints (knees, hips, etc.), Shortness of breath, Feeling tired or having low energy PHQ-15 (Physical Symptom) Severity Score: M inimal <4 (0-4) Does deployer have evidence of high generalized post-deployment physical symptoms (a score of 1 5 on the PHQ15 physical symptoms scale - deployer questions 8a. - 8o.) or is 'bothered a lot' by specific symptoms listed in 8a. 8 dd.?: N o Section 6: Major Life Stressor DQ9: Major Life Stressor indicated: N o Section 7: Mental Health/Medication Screening Deployer Comments: N /A Deployers Comments: N /A Section 8: Alcohol Abuse Screening AUDIT-C Screening Score: 2 Section 9: PTSD Screening DQ13: Deployer iwona 'yes' on two or more of questions 13a through 13d: N o Section 10: Depression Screening DQ14: Marked 'More than half the days' or 'Nearly every day' on 14a or 14b:?No Section 11: Environmental Exposure Concerns DQ15: Indicate concern about possible exposure: N o Animal bites: N o Animal bodies (): N o Chlorine gas: N o Depleted uranium: N o Excessive vibration: N o Fog oils (smoke screen): N o Garbage: N o Human blood, body fluids, body parts, or bodies: N o Industrial pollution: N o Insect bites: N o Ionizing radiation: N o JP8 or other fuels: N o Lasers: N o Loud noises: N o Paints: N o Pesticides: N o Radar/Microwaves: N o Sand/dust: N o Smoke from burning trash or feces: N o Smoke from oil fire: N o Solvents: N o Tent heater smoke: N o Vehicle or truck exhaust fumes: N o Chemical, biological, radiological warfare agent: N o Other exposures to toxic chemicals or materials, such as ammonia, nitric acid, etc: N o Section 12: Rabies Exposure Screening DQ16: Indicated Animal Bite or Scratch during depolyment: N o Section 13: Suicide Risk Evaluation. PQ13: Bothered by suicidal thoughts in the past month: N o Section 14: Violence/Harm Risk Evaluation. PQ14: Bothered by thoughts of hurting or losing control with someone in the past month:: N o Section 15: Deployer Issues with Assessment PQ15: Deployer declined to complete form: N o Deployer declined to complete interview/assessment: N o Section 16: Summary of Provider Identified Concerns PQ16: Indicated 'Yes' to Concern: Y es Section 20: Supplemental Services Recommended / Information Provided PQ20: Provider indicated 'Yes' to: Appointment Assistance: N o Contract Support: N o Community Service: N o Trigonometry Tutor: N o Health Education and Information: N o Health Care Benefits and Resources Information: N o In Transition: N o Family Support: N o One Source: N o Provider: N o [facility]: N o Vet Center: N o Other: N o Provider's Name: ari markham Provider's Title: Eugene guerra Practitioner Provider's Signature: Rafael es Provider's Date: Provider s Name: Ari Lennon Provider s Signature: Provider s Signature: ari watsonmaurice providers comments: N o concerns identified or voiced. Ordered: Office Visit Level 2 New Extracted from:Title: Office Clinic Note- PHA Author: MARLO LENNON NP Date: 07/09/20 1. E XAM/ASSESSMENT, OCCUPATIONAL, TEAM COORDINATOR PERIODIC HEALTH ASSESSMENT (PHA) D epartment of Defense personnel are required to present to [place] Readiness Processing for annual or periodic Medical Health Assessment to determine Medical Readiness. It is well known that Department of Defense personnel are often expected to exhaust all their innate mental, physical and emotional capabilities without breaking down. Many individuals will avoid taking care of their physical and mental health in order to meet their perception of those expectations. D uring this evaluation, a review was conducted to ascertain what medical, psychiatric and preventive health services are necessary and appropriate for age, gender, family history, allergies, risky behaviors, etc. in order to guide and encourage members of DoD to make healthier choices which will improve health outcomes thus maintaining each individual in a Medically Available status.? I have personally reviewed with the individual all the formatted and/or free text responses on the online questionnaire and/or the required hardcopy documents which are scanned into [facility] I ndividual is M EDICALLY AVAILABLE f or deployment. Ordered: Office Visit Level 2 New 2. T uberculosis screening status D epartment of [employer] personnel no longer have to have routine periodic TB testing. TB testing is to be performed on only those individuals who qualify according to target guidelines ([place] MEDCOM Reg 40-64) Tuberculosis (TB) Surveillance and Control Program. Targeted screening performed using [employer] form 829, 830, or 831(or Six3 0598) and is reviewed with the individual. TB testing?WAS NOT naheed solano at this time. Ordered: Office Visit Level 2 New 00038 3. E ye/vision finding ( 61475) Screening Test Of Visual Acuity, Quantitative, Bilateral - Department of Defense personnel are required to present to [place] Readiness Processing for annual or periodic Medical Health Assessment to determine Medical Readiness. It is well known that Department of defense personnel require periodic vision screening or optometric evaluation at least annually in order to maintain medical readiness which can be affected by changes in vision and visual impairment. Visual acuity was screened using the Stereo Optical vision screening device. R esults are entered into the vital signs of this encounter, and/or into the PHA and/or on the SRP coversheet which is scanned into the [facility] folder. Ordered: Office Visit Level 2 New 87306 4. E levated blood pressure reading without diagnosis of hypertension - Recommend patient self monitor blood pressure and follow up with PCM if systolic remains above 129 or diastolic remains above 89. Ordered: Office Visit Level 2 New 64207 Extracted from:Title: R knee injury Author: MIMI REID MD Date: 07/02/20 1. I njury of right knee, K nee injury Suspect soft tissue injury as origin of pain. Doubt fracture, ligamentous or meniscal tear.? No indication for imaging at this time. Recommended conservative therapy (written for temporary profile x 1 week), use of NSAIDs/ice. Follow-up as needed. Ordered: Office Visit Level 3 Est 57563 2. H igh blood pressure Asymptomatic. R ecommended follow up with PCM after graduation and [employer], to consider re-initiation of pharmacotherapy. Ordered: Office Visit Level 3 Est [id number] 08/05/2024 0075[facility] Assessment and Plan Extracted from:Title : HTN follow-up Author: DAVIS MCKEON Date: 06/09/23 1. E ssential hypertension Will change pt BP med at this time the 5 day BP check was elevated. Pt is to STOP the current BP med and will follow up in 2 weeks prior to getting out of the [employer]. he will also have labs completed as well. Discussed possible side effects and when to return soon. Pt did not take meds this am. Also discussed with this pt finding a PCM to where he will be moving. Changing your lifestyle can go a long way toward controlling high blood pressure. Recommendations needed are to make lifestyle changes including: Eating a heart-healthy diet with less salt, Getting regular physical activity, Maintaining a healthy weight or losing weight if you're overweight or obese Limiting the amount of alcohol you drink Ordered: losartan-hydroCHLOROthiazide(lo sartan-hydroCHLOROthiazide 50mg-12.5mg oral tablet), 1 tab(s), Oral, Daily, for blood pressure, # 90 tab(s), 3 total refill(s), Maintenance, 1 tab(s) Oral Daily,Instr:for blood pressure, Pharmacy: [facility] [Federal Rx: #90 last filled 06/09/23] Comprehensive Metabolic Panel Extracted from:Title: B/P Check #5 Author: BHARTI TOTH RN Date: 06/08/23 Patient came in today to be seen for b/p check. Patient verified using 2 identifiers. Manual B/P as follows: -RA- 142/96 -LA- 146/98 -HR- 106 bpm Patient denies having any caffeine or nicotine today. Patient did state he had taken his BP medicine. Patient denies any signs/ symptoms of hypo/hypertension at this time. Patient did verbalize understanding to appointment details with provider tomorrow. Extracted from:Title: Office Clinic Note Author: NAYELI ALVAREZ RN Date: 06/05/23 BP - High blood pressure Extracted from:Title: Office Clinic Note-BP check day 3 Author: LUKE PATIÑO, RN Date: 06/04/23 Hypertension Extracted from:Title: Office Clinic Note Author: NAYELI ALVAREZ RN Date: 06/03/23 BP - High blood pressure Extracted from:Title: Office Clinic Note Author: NAYELI ALVAREZ RN Date: 06/02/23 High blood pressure Impacted wax Extracted from:Title: HTN and Profile Author: DAVIS MCKEON Date: 06/01/23 1. E ssential hypertension Pt is to come in for 5 day BP check and will follow up if further eval is needed. [place] still jet lagged, no CPAP (luggage delayed) and caffeine this am. Changing your lifestyle can go a long way toward controlling high blood pressure. Recommendations needed are to make lifestyle changes including: Eating a heart-healthy diet with less salt, Getting regular physical activity, Maintaining a healthy weight or losing weight if you're overweight or obese Limiting the amount of alcohol you drink 2. O ther low back pain Extracted from:Title: Ear Irrigation Note Author: MARV ARGUETA Date: 02/25/23 1. I mpacted cerumen of bilateral ears Patient presents for Ear flushing, due to b/l ear impaction. Patient denies any pain or discharge to inner ears. Patient denies decreased loss of hearing. Both ears irrigated and flushed of impacted cerumen. Patient tolerated procedure well. Ordered Debrox ear drops to assist with home ear wax removal. Marv Argueta COUTURE ALTERATIONS DRESSMAKER I mmunizations [facility] Extracted from:Title: Office Clinic Note Author: TIERNEY NARVAEZ Date: 02/19/23 1. 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 Pt to continue physical therapy at [facility]. Medication ordered according to Neurosurgeon's recommendation. Pt given precautions regarding GI side effects of corticosteroid and NSAIDS.? Lansoprazole 30mg QAM for GI protection. F/U with Neurosurgery if possible otherwise will need to establish care after leaving the local area. PVU Ordered: dexAMETHasone(dexAMETHasone 4 mg oral tablet), See Instructions, 2 TABS in the morning for 4 days then 1 TAB in the morning for 7 days, # 15 tab(s), 0 total refill(s), Acute, 2 TABS in the morning for 4 days then 1 TAB in the morning for 7 days, Pharmacy: [facility] [Not filled] diclofenac(diclofenac sodium 75 mg oral delayed release tablet), 1 tab(s), Oral, BID, # 14 tab(s), 0 total refill(s), Maintenance, 1 tab(s) Oral BID,x7 days, Pharmacy: [facility] [Not filled] lansoprazole(lansoprazole 30 mg oral delayed release capsule), 1 cap(s), Oral, Daily, # 60 cap(s), 2 total refill(s), Maintenance, 1 cap(s) Oral Daily, Pharmacy: [facility] [Not filled] Tierney Narvaez PA-C, [facility] Extracted from:Title: [facility] [place] Author: MAGDIEL PALM RN Date: 01/02/23 Health education given Client educated on the importance of determining daily caloric need and how this relates to managing weight. Recommend that client conduct a follow-up metabolic assessment in 90 days. client verbalized understanding. Conducted health coaching, reviewed client barriers and set SMART goal of ? to overcome barrier. Client was encouraged to continue care plan as outlined by their Patient Intake Representative and that services provided by the [facility] team are meant to be an addition to that care plan. Client stated understanding. Client advise of the [facility]'s stress and sleep management classes/tools. Extracted from:Title: [facility] Bod Repeat Author: MAGDIEL PALM, RN Date: 12/26/22 Health education given Test results explained to client. Client informed of normative body fat values and given an explanation of fat mass vs. fat free mass. Educator addressed client's questions and concerns. Encouraged client to return for follow up in 30 days for BODPOD. Conducted health coaching, reviewed client barriers and set SMART goal to over come barrier. Client advised to obtain a recent META to help him meet his goals. Extracted from:Title: ETS physical Author: DAVIS MCKEON Date: 11/28/22 1. 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 2. E ssential hypertension Controlled on current medication regimen 3. F lat foot [pes planus] (acquired), left foot Bilaterally pes planus with chronic concerns. 4. A cquired pes planus of right foot see left foot 5. R ight knee pain on going concern 6. L eft shoulder pain on going concern Extracted from:Title: ETS Part 1 Author: DAVIS MCKEON Date: 11/27/22 1. E XAM, OCCUPATIONAL, SKILLED NURSING OR SEPARATION FROM [employer], SHORT 2807-1 completed for this vp customer service Extracted from:Title: Office Clinic Note- PHHRA 2900 Author: MARLO LENNON NP Date: 07/24/20 1. A SSESSMENT, POST DEPLOYMENT, DOCUMENTED ON [id number] (PDHRA) PDHRA ( DD Form 2900) Deployer: MIMI LAWRENCE Signed by: ari markham Nurse Practitioner o n Deployer reports most recent deployment was to [facility] a nd has deployed 1 t imes before in the past five years. VA Disability Information No VA Disability Information Available. 1. Address concerns identified on deployer questions 1 and 2 Deployer Comments : N /A Deployer Comments: N /A Was the [place]'s e-Profile and/or AHLTA history reviewed to determine the presence of mTBI/Concussion(s) to assess the need for functional limitations or additional evaluation or treatment after this assessment?:?No If Yes, number of occurrences: 0 Section 2: Injury/Illness that Occurred during Deployment DQ3: Still having a problem related to an injury that occurred during deployment: N o Section 4: Medical Care Following Deployment Deployer's response or comments: N /A Deployer's response or comments: N /A Section 5: Post-Deployment Health Concerns. Symptoms reported as 'Bothered a little': P ain in the arms, legs, or joints (knees, hips, etc.), Shortness of breath, Feeling tired or having low energy PHQ-15 (Physical Symptom) Severity Score: M inimal <4 (0-4) Does deployer have evidence of high generalized post-deployment physical symptoms (a score of 1 5 on the PHQ15 physical symptoms scale - deployer questions 8a. - 8o.) or is 'bothered a lot' by specific symptoms listed in 8a. 8 dd.?: N o Section 6: Major Life Stressor DQ9: Major Life Stressor indicated: N o Section 7: Mental Health/Medication Screening Deployer Comments: N /A Deployers Comments: N /A Section 8: Alcohol Abuse Screening AUDIT-C Screening Score: 2 Section 9: PTSD Screening DQ13: Deployer iwona 'yes' on two or more of questions 13a through 13d: N o Section 10: Depression Screening DQ14: Marked 'More than half the days' or 'Nearly every day' on 14a or 14b:?No Section 11: Environmental Exposure Concerns DQ15: Indicate concern about possible exposure: N o Animal bites: N o Animal bodies (): N o Chlorine gas: N o Depleted uranium: N o Excessive vibration: N o Fog oils (smoke screen): N o Garbage: N o Human blood, body fluids, body parts, or bodies: N o Industrial pollution: N o Insect bites: N o Ionizing radiation: N o JP8 or other fuels: N o Lasers: N o Loud noises: N o Paints: N o Pesticides: N o Radar/Microwaves: N o Sand/dust: N o Smoke from burning trash or feces: N o Smoke from oil fire: N o Solvents: N o Tent heater smoke: N o Vehicle or truck exhaust fumes: N o Chemical, biological, radiological warfare agent: N o Other exposures to toxic chemicals or materials, such as ammonia, nitric acid, etc: N o Section 12: Rabies Exposure Screening DQ16: Indicated Animal Bite or Scratch during depolyment: N o Section 13: Suicide Risk Evaluation. PQ13: Bothered by suicidal thoughts in the past month: N o Section 14: Violence/Harm Risk Evaluation. PQ14: Bothered by thoughts of hurting or losing control with someone in the past month:: N o Section 15: Deployer Issues with Assessment PQ15: Deployer declined to complete form: N o Deployer declined to complete interview/assessment: N o Section 16: Summary of Provider Identified Concerns PQ16: Indicated 'Yes' to Concern: Y es Section 20: Supplemental Services Recommended / Information Provided PQ20: Provider indicated 'Yes' to: Appointment Assistance: N o Contract Support: N o Community Service: N o Trigonometry Tutor: N o Health Education and Information: N o Health Care Benefits and Resources Information: N o In Transition: N o Family Support: N o One Source: N o Provider: N o [facility] or Community Clinic: N o Vet Center: N o Other: N o Provider's Name: ari markham Provider's Title: Eugene guerra Practitioner Provider's Signature: Rafael burks Provider's Date: Provider s Name: Ari Lennon Provider s Signature: Provider s Signature: ari markhma providers comments: N o concerns identified or voiced. Ordered: Office Visit Level 2 New 43864 Extracted from:Title: Office Clinic Note- PHA Author: MARLO LENNON NP Date: 07/09/20 1. E XAM/ASSESSMENT, OCCUPATIONAL, TEAM COORDINATOR PERIODIC HEALTH ASSESSMENT (PHA) D epartment of Defense personnel are required to present to [place] Readiness Processing for annual or periodic Medical Health Assessment to determine Medical Readiness. It is well known that Department of Defense personnel are often expected to exhaust all their innate mental, physical and emotional capabilities without breaking down. Many individuals will avoid taking care of their physical and mental health in order to meet their perception of those expectations. D uring this evaluation, a review was conducted to ascertain what medical, psychiatric and preventive health services are necessary and appropriate for age, gender, family history, allergies, risky behaviors, etc. in order to guide and encourage members of DoD to make healthier choices which will improve health outcomes thus maintaining each individual in a Medically Available status.? I have personally reviewed with the individual all the formatted and/or free text responses on the online questionnaire and/or the required hardcopy documents which are scanned into [facility].? I ndividual is M EDICALLY AVAILABLE f or deployment. Ordered: Office Visit Level 2 New 09456 2. T uberculosis screening status [facility] personnel no longer have to have routine periodic TB testing. TB testing is to be performed on only those individuals who qualify according to target guidelines ([facility] [employer] Reg 40-64) Tuberculosis (TB) Surveillance and Control Program. Targeted screening performed using [employer] form 829, 830, or 831(or Six3 6233) and is reviewed with the individual. TB testing?WAS NOT naheed solano at this time. Ordered: Office Visit Level 2 New 61130 3. E ye/vision finding ( 18235) Screening Test Of Visual Acuity, Quantitative, Bilateral - Department of Defense personnel are required to present to [place] Readiness Processing for annual or periodic Medical Health Assessment to determine Medical Readiness. It is well known that Department of defense personnel require periodic vision screening or optometric evaluation at least annually in order to maintain medical readiness which can be affected by changes in vision and visual impairment. Visual acuity was screened using the [employer]reo Optical vision screening device. R esults are entered into the vital signs of this encounter, and/or into the PHA and/or on the SRP coversheet which is scanned into the [facility] folder. Ordered: Office Visit Level 2 New 66127 4. E levated blood pressure reading without diagnosis of hypertension - Recommend patient self monitor blood pressure and follow up with PCM if systolic remains above 129 or diastolic remains above 89. Ordered: Office Visit Level 2 New 99189 Extracted from:Title: R knee injury Author: MIMI REID MD Date: 07/02/20 1. I njury of right knee, K nee injury Suspect soft tissue injury as origin of pain. Doubt fracture, ligamentous or meniscal tear.? No indication for imaging at this time. Recommended conservative therapy (written for temporary profile x 1 week), use of NSAIDs/ice. Follow-up as needed. Ordered: Office Visit Level 3 Est 92507 2. H igh blood pressure Asymptomatic. R ecommended follow up with PCM after graduation and [facility], to consider re-initiation of pharmacotherapy. Ordered: Office Visit Level 3 Est 10239 [facility]/2024 [facility] Functional Status Combined list of recent functional and cognitive assessments recorded at Department of [employer] and [employer] (VA).VA Functional Hardy Measurement (FIM) Scale: 1 = Total Assistance (Subject = 0% +), 2 = Maximal Assistance (Subject = 25% +), 3 = Moderate Assistance (Subject = 50% +), 4 = Minimal Assistance (Subject = 75% +), 5 = Supervision, 6 = Modified Hardy (Device), 7 = Complete Hardy (Timely, Safely). Assessment Date/Time Source Assessment Type Assessment Skill Assessment Score Assessment Details No data available for this section
--- OUTSIDE RECORDS SUMMARY | 2024-08-05 11:25 | XMS_ITS | Clinical Summary ---
Author Organization [facility] Address [address] [place] [id number] Care Team Providers Care Director Patient Accounting Name Role Phone Pcp, No Primary Care Provider Unavailabl e Allergies No known active allergies Medications losartan (COZAAR) 50 mg tabletIndications :HTN (hypertension) Take 1 Tablet (50 mg) by mouth once daily. 90 Tablet 3 10/15/19 24 Active chlorthalidone (HYGROTON) 25 mg tabletIndications :HTN (hypertension) Take 0.5 Tablets (12.5 mg) by mouth once daily. 90 Tablet 3 10/15/19 24 Active lisdexamfetamine 40 mg capsuleIndication s:Attention deficit hyperactivity disorder (ADHD), predominantly inattentive type Take 1 Capsule (40 mg) by mouth once daily in the morning. 30 Capsule 09/27/19 25 Active lisdexamfetamine 40 mg capsuleIndication s:Attention deficit hyperactivity disorder (ADHD), predominantly inattentive type Take 1 Capsule (40 mg) by mouth once daily in the morning. 30 Capsule 06/30/19 25 025 Discontinued Encounters Date Type Department Care Team Description 07/28/2024 Refill [facility] [address] [place] [address] Devan Nguyễn MD Refill Request (Lisdexamfetamine) 06/28/2024 Refill [facility] [address] [place] [address] Pcp, No Refill Request (lisdexamfetamine (VYVANSE)) from Last 3 Months Immunizations Immunization Administration Dates Next Due Anthrax Vaccine 07/08/2019, 7,12/31/2015,07/18,06/07/2015 Hepatitis A (Adult) 03/22/2015,09/06/2013 Hepatitis B (Adult) 04/09/2014 Inactivated Polio Vaccine 03/22/2015 Influenza Virus, Unspecified 01/06/2020,03/04/19 18 Influenza, Injectable, Mdck, Quadrivalent, W/preservative 01/06/2020,03/04/2017 Georgian Encephalitis 07/19/2015,06/07/2015 Meningococcal Vaccine (Menactra) 08/14/2020,04/08/2015 Smallpox (Vaccinia) Live [id number] 06/07/2015 Typhoid (injectable) 10/15/2022,05/02/19 21,04/01/2018,06/06 Varicella Vaccine 09/07/2015 Yellow Fever 08/14/2020 Social History Tobacco Use Types Packs/Day Years Used Date Smoking Tobacco: Never Smokeless Tobacco: Never Tobacco Cessation:Counseling Given: Yes Alcohol Use Standard Drinks/Week Comments Yes 0 (1 standard drink = 0.6 oz pur e alcohol) occ PHQ-2 Answer Date Recorded PHQ-2 TOTAL SCORE 5 10/15/2023 Social Connections Answer Date Recorded Do you often feel lonely or isolated from those around you? 0 10/15/2023 Financial Resource Strain Answer Date R ecorded Difficulty of Paying Living Expenses 3 10/15/2023 Difficulty of Paying Living Expenses Not on file 10/15/2023 Food Insecurity Answer Date Recorded Do you worry your food will run out before you are able to buy more? 1 10/15/2023 Transportation Needs Answer Date Record ed Does lack of transportation keep you from medica l appointments? 1 10/15/2023 Does lack of transportation keep you from work, meetings or getting things that you need? 1 10/15/2023 Housing Stability Answer Date Recorded What is your housing situation today? 1 10/15/2023 Utilities Answer Date Recorded Do you have trouble paying f or utilities (for example, heat, electricity, water, phone)? 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 Height 172.2 cm (5' 7.8) 01/15/2024 1:57 PM ELECTRONIC OPERATOR Body Mass Index 31.66 01/15/2024 1:57 PM ELECTRONIC OPERATOR Plan of Treatment Upcoming Encounters Date Type Department Care Team (Late st Contact Info) Description 08/11/2024 2:05 PM CDT Office Visit [facility] [address] [place] [address] Devan Nguyễn MD [address] [place] [address] Health Maintenance Due Date Last Done Comments Tdap 12/11/1998 HIV for age 15-65 12/11/2002 Hepatitis C screening for age 18-79 12/11/2005 Tetanus booster 2007 Hepatitis B series for 19+ (2 of 3 - 19+ 3-dose series) 05/07/2014 04/09/2014 Lipids for age 35-44 12/11/2022 COVID-19 vaccine series ( season) 2023 12/18/2021, 03/07/2021 Depression screening for age 12+ 10/14/2024 10/15/2023 Influenza Vaccine (Season Ended) 2024 01/06/2020, 01/06/2020, 03/04/2017, Additional history exists BMI (ht and wt on same day) for age 18+ 01/14/2025 01/15/2024, 10/15/2023 Pneumococcal series for age 6-49 Aged Out No longer eligible based on patient's age to complete this topic Insurance [employer] [id number] [facility] Care Teams Director Patient Accounting Relationship Specialty Start Date End Date Pcp, No . PCP - General 09/30/23
--- NOTE | 2024-08-05 11:39 | CRLHL7_ITS ---
For Patients: As a result of the Century Cures Act, medical imaging exams and procedure reports are released immediately into your electronic medical record. You may view this report before your referring provider. If you have questions, please contact your health care provider. Indication: Shortness of breath Technique: Chest 2 views Comparison: None Findings/Impression: Cardiovascular and mediastinum: Normal heart size with mild aortic tortuosity. Lungs and pleural spaces: Lungs are clear. No sign of infiltrate or mass. No sign of pleural effusion. No pneumothorax. Bones and soft tissues: No significant findings. Dictated by Kt Perez MD @ 08/05/2024 12:24:26 PM (Electronically Signed)
[2024-08-05 11:58] LABS: Basophils Absolute Auto 0.02 K/uL (0.00-0.30); Basophils Percent Auto 0.3 % (0.0-3.0); Eosinophils Absolute Auto 0.11 K/uL (0.00-0.50); Eosinophils Percent Auto 1.8 % (0.0-7.0); Hematocrit 48.6 % (37.0-53.0); Hemoglobin* 15.9 gm/dL (13.5-17.5); Immature Granulocytes Abs Auto 0.01 K/uL (0.00-0.30); Immature Granulocytes Pct Auto 0.2 %; Lymphocytes Absolute Auto 2.54 K/uL (0.90-2.90); Lymphocytes Percent Auto 42.5 % (20-44); Mean Corpuscular HGB Conc 33 gm/dL (32-36); Mean Corpuscular Hemoglobin 29 pg (26-34); Mean Corpuscular Volume 88 fL (80-100); Neutrophils Absolute Auto 2.87 K/uL (1.7-7.0); Neutrophils Percent Auto 48.2 % (42.0-72.0); Platelet Count* 256 K/uL (140-440); RDW Coefficient of Variation % 12.6 % (11.5-15.5); Red Blood Count 5.52 m/uL (4.30-5.90); White Blood Count* 5.97 K/uL (4.50-11.00)
--- OUTSIDE RECORDS SUMMARY | 2024-08-05 12:02 | XMS_ITS | Continuity of Care Document ---
Author Name [facility] Organization [facility] Care Team Providers Care Survey Technologist Name Role Phone [facility] Unavailable Unavailable Problems Combined list of problems from Department of Defense and Veterans Affairs facilities. It does not include entries that were removed or entered in error. Problem Status Onset Date Problem Type Date of Resolution Comments Source Diarrhea, unspecified Inactive 2 Condition DoD Essential (primary) hypertension Active 6 Condition [facility] Essential hypertension Active 6 Condition Unknown Organization ASSESSMENT, PRE-DEPLOYMENT, DOCUMENTED ON [id number] Active 9 Condition [facility] Need For Vaccination Hepatitis A Inactive Condition [facility] Acquired pes planus of both feet Active Condition Unknown Organization Acquired pes planus of right foot Active Condition [address] [place] [address] [place] EXAM, OCCUPATIONAL, SNF OR SEPARATION FROM [employer] SERVICE, LONG Active Condition [address] [place] [address] [place] Left shoulder pain Active Condition [facility] [place] Other low back pain Active Condition [facility] [place] Right knee pain Active Condition [address] [place] [address] [place] Medications Combined list of outpatient medications from [...] 1 total refill(s ), Acute, Pharmacy : [facility] Oral (given by mouth) Complet ed [...] as directed .Obtain advice for OTCs. 05/31/2024 [id number] 2023 90 [facility] carboxymeth [...] 0 total refill(s ), Acute, Pharmacy : [facility] Discont inued 06/01/2023 3 2023 30.0 [facility] [place] dexAMETHaso ne 4 mg oral tablet See Instruct ions, 2 TABS in the morning for 4 days then 1 TAB in the morning for 7 days, # 15 tab(s), 0 total refill(s ), Acute, Pharmacy : [facility] Complet ed 03/01/2023 3 2022 15.0 [facility] [place] diclofenac sodium 75 mg oral delayed release tablet 1 tab(s), Oral, BID, # 14 tab(s), 0 total refill(s ), Jaelyn fle, Pharmacy : [facility] Oral (given by mouth) Discont inued 06/01/2023 3 2023 14.0 [facility] [place] lansoprazol e 30 mg oral delayed release capsule 1 cap(s), Oral, Daily, # 60 cap(s), 2 total refill(s ), Jaelyn [facility], Pharmacy : [facility] Oral (given by mouth) Discont inued 02/19/20232022 60.0 [facility] [place] LISDEXAMFET AMINE DIMESYLATE (lisdexamfe tamine dimesylate) , 50 MG, CAPSULE, ORAL, HIKMA PHARMACEU, 100 ea. BOTTLE Active [id number] 2023 30 Pharmac y Data Transac tion Service Facilit y losartan-hy droCHLOROth iazide 50mg-12.5mg oral tablet 1 tab(s), Oral, Daily, for blood pressure , # 90 tab(s), 3 total refill(s ), Jaelyn [facility], Pharmacy : [facility] Oral (given by mouth) Ordered 4 [...] refill(s ), [facility], Pharmacy : [facility] Oral (given by mouth) Discont inued [...] Site Reaction Lot Number CVX Code Drug Patient Relations Director Status Comments Source influenza virus vaccine, inactivated 2022 JOSE ELIAS Long[place] linda, left (delt oid) [id number] Se[employer]icle, A [employer] complet ed influenza virus vaccine, inactivat ed 02/25/23 Given [facility] [place] influenza, injectable, quadrivalent- pf 2022 JESSICALYNCH [id number] 150 complet ed Result Comment: Route: Unknown Manufactu rer: OT (SEQ) [facility] [place] typhoid Vi capsular polysaccharid e vac 2022 JESSICALYNCH [id number] 101 complet ed Result Comment: Route: Unknown Manufactu rer: OT (PMC) [facility] [place] influenza, injectable, quadrivalent- pf 2021 MS.CHRISTIE RAINESJAIME [id number] 150 complet ed Result Comment: Route: Intramusc ular(IM) Manufactu rer: [email or web address] e (SKB) [facility] [place] COVID-19 vaccine(Pfize r Bival 12yr+) 2021 MS.CHRISTIE GONZALEZKARYNA [id number] 300 complet ed Result Comment: Route: Intramusc ular(IM) Manufactu rer: Pfizer, Inc (PFR) [facility] [place] influenza, injectable, quadrivalent 2021 JESSICALYNCH [id number] 158 complet ed Result Comment: Route: Unknown Manufactu rer: [facility] (SKB) [facility] [place] COVID Vaccine Moderna 2021 MS.CHRISTIE GONZALEZKARYNA [id number] 207 complet ed Result Comment: Route: Intramusc ular(IM) Manufactu rer: Moderna US, Inc. (MOD) [facility] [place] COVID Vaccine Moderna 2021 MSISIDRAARABELLAREINA MARINO [id number] 207 complet ed Result Comment: Route: Unknown [...] [place] yellow fever vaccine 2020 MS.SHARONDALA PICHARDO [id number] 37 complet ed Result Comment: Route: Subcutane ous(SC) Manufactu rer: Sanofi Pasteur (PMC) [facility] [place] meningococcal A,C,Y,W-135 (MCV4P) 2020 MS.SHARONDALA PICHARDO [id number] 114 complet ed Result Comment: Route: Intramusc ular(IM) Manufactu rer: Sanofi Pasteur (PMC) [facility] [place] COVID Vaccine Moderna 2020 JESSICALYNCH [id number] 207 complet ed Result Comment: Route: Unknown Manufactu rer: OTH (MOD) [facility] [place] COVID Vaccine Moderna 2020 JESSICALYNCH UNK 207 complet ed Result Comment: Route: Unknown Manufactu rer: OTH (MOD) [facility] [place] typhoid Vi capsular polysaccharid e vac 2020 zzLef t Arm [id number] 101 sanofi pasteur complet ed typhoid Vi capsular polysacch aride vac 05/01/20 Given Ambulat ory Pharmac y typhoid Vi capsular polysaccharid e vaccine 1 2020 LUCINDA GLASS I [id number] Sanofi Pasteur (PMC) complet ed typhoid Vi capsular polysacch aride vaccine DoD influenza virus vaccine, inactivated 2019 [id number] Seqirus complet ed influenza virus vaccine, inactivat ed 01/06/20 Given Ambulat ory Pharmac y Influenza, injectable, Madin [place] Canine Kidney, quadrivalent with preservative 1 2019 [id number] 186 Seqirus (SEQ) comple t ed Influenza , injectabl e, Madin [place] Canine Kidney, quadrival ent with preservat aicha DoD anthrax vaccine 2019 zzLef t Arm [id number] 24 Emergent Biosolutions complet ed anthrax vaccine 07/08/19 Given Ambulat ory Pharmac y anthrax vaccine 5 2019 ANÍBALRosario LOREN [id number] 24 [employer] [place] (MIP) complet ed anthrax vaccine DoD influenza, injectable, quadrivalent 2018 zzLef t Arm [id number] 158 Seqirus complet ed influenza , injectabl e, quadrival ent 12/01/18 Given Ambulat ory Pharmac y influenza, injectable, quadrivalent, contains preservative 1 2018 [id number] 158 Seqirus (SEQ) complet ed influenza [...] aicha free DoD influenza, injectable, quadrivalent 2017 [id number] 158 Seqirus complet ed influenza , injectabl e, quadrival ent 01/13/18 Given Ambulat ory Pharmac y influenza, injectable, quadrivalent, contains preservative 1 2017 [id number] 158 Seqirus (SEQ) comple t ed influenza , injectabl e, quadrival ent, contains preservat aicha DoD influenza virus vaccine, inactivated 2017 [id number] 88 Seqirus complet ed influenza virus vaccine, inactivat ed 03/04/17 Given Ambulat ory Pharmac y Influenza, injectable, Madin Tiffany Canine Kidney, quadrivalent with preservative 1 2017 [id number] 186 Seqirus (SEQ) comple t ed Influenza , injectabl e, Madin [place] Canine Kidney, quadrival ent with preservat aicha DoD anthrax vaccine 2016 zzLef t Arm [id number] 24 Emergent Biosolutions complet ed anthrax vaccine 06/30/16 Given Ambulat ory Pharmac y anthrax vaccine 4 2016 NIELS ROBIN [id number] 24 [employer] [place] ([facility]) complet ed anthrax vaccine DoD anthrax vaccine 2015 zzLef t Arm [id number] 24 Emergent Biosolutions complet ed anthrax vaccine 12/31/15 Given Ambulat ory Pharmac y anthrax vaccine 3 2015 AKUA HUFFMAN [id number] 24 [employer] [place] ([facility]) complet ed anthrax vaccine DoD influenza, seasonal, injectable-pf 2015 [id number] 140 CSL Behring complet ed influenza , seasonal, injectabl e-pf 12/13/15 Given Ambulat ory Pharmac y Influenza, seasonal, injectable, preservative free 1 2015 [id number] 140 CSL Biotherapies, Inc. (CSL) complet ed Influenza , seasonal, injectabl e, preservat aicha free DoD measles/mumps /rubella virus vaccine 2015 UNK 03 Unknown complet ed measles/m umps/rube lla virus vaccine 09/07/15 Given Ambulat ory Pharmac y measles, mumps and rubella virus vaccine 0 2015 03 () Not Given measles, mumps and rubella virus vaccine DoD hepatitis B vaccine, unspecified formulation 0 2015 45 () Not Given hepatitis B vaccine, unspecifi ed formulati on DoD varicella virus vaccine 2015 POLY TRONCOSO UNK 21 complet ed Result Comment: Route: Unknown Manufactu rer: OTH (UNK) [facility] [place] tetanus, diphtheria, acellular pertu is 2015 zzLef t Arm [id number] 115 complet ed tetanus, diphtheri a, acellular pertussis 08/14/15 Given Ambulat ory Pharmac y tetanus toxoid, reduced diphtheria toxoid, and acellular pertu is vaccine, adsorbed 0 2015 AKUA HUFFMAN [id number] 115 Transcribed (TRS) complet ed tetanus toxoid, reduced diphtheri a toxoid, and acellular pertussis vaccine, adsorbed DoD anthrax vaccine 2015 [id number] 24 Emergent Biosolutions complet ed anthrax vaccine 07/19/15 Given Ambulat ory Pharmac y Turkish Encephalitis IM 2015 [id number] 134 Novartis Pharmaceutica ls complet ed [place] Encephali tis IM 07/19/15 Given Ambulat ory Pharmac y anthrax vaccine 2 2015 [id number] 24 [employer] [place] (MIP) complet ed anthrax vaccine DoD Turkish Encephalitis vaccine for intramuscular administratio n 2 2015 [id number] 134 Novartis Pharmaceutica l [place]. (NOV) complet ed [place] Encephali tis vaccine for intramusc ular administr ation DoD typhoid Vi capsular polysaccharid e vac 2015 [id number] 101 sanofi pasteur complet ed typhoid Vi capsular polysacch aride vac 06/07/15 Given Ambulat ory Pharmac y meningococcal A,C,Y,W-135 (MCV4P) 2015 [id number] 114 sanofi pasteur complet ed meningoco ccal A,C,Y,W-1 35 (MCV4P) 06/07/15 Given Ambulat ory Pharmac y Turkish Encephalitis IM 2015 [id number] 4E 134 Sanofi Pasteur Incorporated complet ed [place] Encephali tis IM 06/07/15 Given Ambulat ory Pharmac y vaccinia (smallpox) vaccine 2015 VV03-01 9C 75 Sanofi Pasteur Incorporated complet ed vaccinia (smallpox ) vaccine 06/07/15 Given Ambulat ory Pharmac y anthrax vaccine 2015 [id number] 24 Emergent Biosolutions complet ed anthrax vaccine 06/07/15 Given Ambulat ory Pharmac y anthrax vaccine 1 2015 [id number] 24 [employer] [place] (MIP) complet ed anthrax vaccine DoD vaccinia (smallpox) vaccine 1 2015 VV03-01 9C 75 (SEA) complet ed vaccinia (smallpox ) vaccine DoD typhoid Vi capsular polysaccharid e vaccine 1 2015 [id number] 101 Sanofi Pasteur (PMC) complet ed typhoid Vi capsular polysacch aride vaccine DoD meningococcal polysaccharid e (groups A, C, Y and W-135) diphtheria toxoid conjugate vaccine (MCV4P) 1 2015 [id number] 114 Sanofi Pasteur (PMC) complet ed meningoco ccal polysacch aride (groups A, C, Y and W-135) diphtheri a toxoid conjugate vaccine (MCV4P) DoD Turkish Encephalitis vaccine for intramuscular administratio n 1 2015 [id number] 4E 134 (SEA) complet ed Turkish Encephali tis vaccine for intramusc ular administr ation DoD influenza, seasonal, injectable 2015 [id number] 1A 141 CSL Behring complet ed influenza , seasonal, injectabl e 03/22/15 Given Ambulat ory Pharmac y hepatitis A adult vaccine 2015 [id number] 52 GlaxoSmithKli ne complet ed hepatitis A adult vaccine 03/22/15 Given Ambulat ory Pharmac y poliovirus vaccine, inactivated 2015 [id number] 10 sanofi pasteur complet ed polioviru s vaccine, inactivat ed 03/22/15 Given Ambulat ory Pharmac y poliovirus vaccine, inactivated 1 2015 [id number] 10 Sanofi Pasteur (PMC) complet ed polioviru s vaccine, inactivat ed DoD hepatitis A vaccine, adult dosage 2 2015 [id number] 52 SmithKline (SKB) complet ed hepatitis A vaccine, adult dosage DoD Influenza, seasonal, injectable [id number] [facility] Biotherapies, Inc. (CS) complet ed Influenza , [...] vaccine 04/09/14 Given Ambulat ory Pharmac y hepatitis B vaccine, adult dosage 1 2014 [id number] 43 SmithKline (SKB) complet ed hepatitis B vaccine, adult dosage DoD HepB, Adult 2014 ALDOSSICALYNCH [id number] 43 complet ed Result Comment: Route: Unknown Manufactu rer: SmithKlin e (SKB) [facility] [place] influenza, seasonal, injectable 2013 [id number] 141 GlaxoSmithKli [...] Prevention' s HIV diagnostic algorithm. Refer to [facility] Lab Guide for additional information : [email or web address] [facility]/ kj/[email or web address]/EPIL ab/Pages/la [email or web address]_[email or web address] x Testing performed by Omar licona. [facility] PresentainLAB Miscellan eous Sendouts Repository Sample Received (06/11/23 9:53 AM) 06/[address] Molecular Infectiou s Disease Reason for Test? Screenin g *NA* (08/04/20 10:20 AM) 08/04 [facility] Molecular Infectiou s Disease SARS-CoV-2 PCR Negative [...] For example, cartridge failed integrity test, the drill operator pneumatic stopped a test that was in progress, or a power failure occurred. Currently the FluVID order may only be used to test SARS-CoV-2 at [facility] Hematolog y Sickle Cell Screen.[facility] NEGATIVE 07/09 Result Comment: INTERPRETAT ION(S): Expected result: Negative This test was developed and its performance characteris tics evaluated by [facility] Reference Chemistry Laboratory. It has not been [...] high complexity clinical laboratory testing. Performed at: [facility] Department of Pathology [address] [place] [address] [facility] Vital Signs Combined list of inpatient and [...] Peripheral Pulse Rate 77 bpm 07/24/2020 14:00:[address] [place] [address] Mean Arterial Pressure, Calc 107 mm[Hg] 01/02/2023 [...] [place] Temperature Oral 37 Jennifer 07/02/2020 13:18:00 0008C-Rosario.Fidencio.[facility] Respiratory Rate 16 br/min 07/02/2020 13:18:00 0008C-Lai.[facility] Blood Pressure Manual Manual 07/02/2020 13:18:00 0008C-RKunal.[facility] BP Site Left arm 07/02/2020 13:18:00 0008C-R.Fidencio.[facility] Systolic Blood Pressure 138 mm[Hg] 11/29/19 23 [...] Department of Defense facilities going backup to [facility] months. Location Location Details Encounter Type Encounter Number Reason For Visit Attending Provider ADM Date DC Date Status Disposition Source [facility] OUTPATIENT [id number] A/E PAULA HERNANDEZ 08/13 Released w/o Limitations [facility]ell([facility] Only [facility]ON[facility]A Araujo([facility]) OUTPATIENT [id number] Notes Entered by: GERRY [place] 30 Aug 2013 1552 ------- ------- ------- ------- -- ramirez in process GERRY Mosley 08/30 Released w/o Limitations Michelle Hudson SONDRA([facility] ) Only UDAY Hudson [facility]ONDRA(Immuni zation Clinic) OUTPATIENT [id number] Notes Entered by: Gianna LUNDBERG 06 Sep 2013 1021 ------- ------- ------- ------- -- NICK SANCHEZ 09/06 Released w/o Limitations [facility] [place](Im[place]iz[place] Clinic) [facility] Nils Coppola [facility] LO [place]([facility]) OUTPATIENT [id number] Notes Entered by: JAYSON CARRILLO 22 Mar 2015 0831 ------- ------- ------- ------- -- INPRO/P ZIMMERMAN/MF 829/HEP A/FLU/M GC/JEANETTE O/TDAP/ G6PD/ YESICA WHITESIDE 03/22 Released w/o Limitations [facility] Nils [place] [place](Sold ier Readine ss Program Center) [facility] Nils [place] [facility] LO [place](IE Hearing Conservat ion Exam) OUTPATIENT [id number] Notes Entered by: PAULO SAEED 22 Mar 2015 1150 ------- ------- ------- ------- -- Annual Hearing Test RAEANN SAEED 03/22 Released w/o Limitations [facility] Nils Co[place] [facility] [place](IEP Hearing Conserv ation Exam) [facility] N[facility] [place] Jes[place]s [place](Civil Defense Support Team) OUTPATIENT [id number] Notes Entered by: CHRIS SHIPMAN 11 Apr 2015 0938 ------- ------- ------- ------- -- BOL 03/17 RESP-CL MIMI CAMILO 04/11 [facility] [place](Civi l Defense Support Team) [facility] [place](Civil Defense Support Team[place] OUTPATIENT [id number] Notes Entered by: Gianna JOSE 26 Apr 2015 0758 ------- ------- ------- ------- -- BOL 03/17 MED MONITOR ING DELVIN MERA 04/26 [facility] Limitations [facility] [place]) [facility] [place]) OUTPATIENT [id number] Notes Entered by: ASHLEY ZAPATA 03 May 2015 0747 ------- ------- ------- ------- -- BOL 03/17-M ED MONITOR CHRIS RUSS 05/02 [facility] w/o Limitations [facility] [place]) [facility] [place] OUTPATIENT [id number] Notes Entered by: CHRIS SHIPMAN 04 May 2015 0834 ------- ------- ------- ------- -- BOL 03/17 MED MONITOR ING CANDICE MCKEON 05/03 [facility]ased w/o Limitations [facility] [place] Support [place]) [facility] [place]) OUTPATIENT [id number] Notes Entered by: RACHELE CALVO 21 May 2015 0911 ------- ------- ------- ------- -- [facility] MIMI Cross 05/20 Released w/o Limitations [facility] [place]([facility]) [facility] [place] OUTPATIENT [id number] Notes Entered by: ALEYDA HUDDLESTON 07 Jun 2015 1001 ------- ------- ------- ------- -- POR/403 6/ANTHR AX/JEV/ TYPHOID /SMALLP OX/MGC YESICA OSUNA 06/06 Released w/o Limitations [facility] [place] Read[place]) [facility] [place]Doc hernández[place] OUTPATIENT [id number] Notes Entered by: CAMI CARY 08 Jun 2015 0621 ------- ------- ------- ------- -- headach e/JUDY Jimenez 06/07 [facility]/o Limitations [facility] [place] [place] [place] OUTPATIENT [id number] Notes Entered by: CAMI CARY 15 Jun 2015 0616 ------- ------- ------- ------- -- f/u JUDY Chan 06/14 [facility] w/o Limitations [facility] [place] [facility] [place] OUTPATIENT [id number] Notes Entered by: QUIN SPENCER 15 Jun 2015 0811 ------- ------- ------- ------- -- smallpo x f/u NELLYYESICA LARA Arin 06/14 [facility]ased w/o Limitations [facility] [place] [place] [place] OUTPATIENT [id number] Notes Entered by: MIMI GARZA 29 Jun 2015 0628 ------- ------- ------- ------- -- F/u BP SCARLET Bell 06/28 Released w/o Limitations [place] her[place] OUTPATIENT [id number] Notes Entered by: CAMI CARY 04 Jul 2015 0613 ------- ------- ------- ------- -- f/u JUDY MCCLOUD 07/03 Released w/o Limitations [place]) [facility] MARCEL Gatica SAWYER-P YONGTAEK( 1RC) OUTPATIENT [id number] Notes Entered by: CYNDIE NORRIS 19 Jul 2015 1006 ------- ------- ------- ------- -- IN PROCESS IWONA PEÑA 07/18 Released w/o Limitations [facility] MARCEL Gatica SAWYER -PYONGT ИРИНАK(1RC ) [facility] MARCEL Gatica SAWYER-P YONGTAEK( Immunizat ions [place]) OUTPATIENT [id number] Notes Entered by: AKUA HUFFMAN 14 Aug 2015 1057 ------- ------- ------- ------- -- TdAKUA Alegria 08/13 Released w/o Limitations UDAY Gatica SAWYER -PYONGT AEK(Imm unizati ons [place] ) [facility] MARCEL Gatica SAWYER-P [place]( Immunizat ions [place]) OUTPATIENT [id number] Notes Entered by: LOLY TREVINO IN 13 Dec 2015 1545 ------- ------- ------- ------- -- Flu Shot NIESL ROBIN 12/12 Released w/o Limitations UDAY BOWDENGOOD -PYONGT AEK(Imm unizati ons [place] ) UDAY Gatica SAWYER-P YONG[place]( Immunizat ions [place]) OUTPATIENT [id number] Notes Entered by: NATHANAELAKUA KIRTI 31 Dec 2015 1331 ------- ------- ------- ------- -- Anthrax AKUA HUFFMAN 12/30 Released w/o Limitations UDAY Gatica SAWYER -PYONGT AEK([facility] unizati ons [place] ) [facility] MARCEL Gatica SAWYER-P [place]( Hearing Program [place]) OUTPATIENT [id number] Notes Entered by: SHEILA LIU 08 Apr 2016 1431 ------- ------- ------- ------- -- audiolo gy exam NIELS ROBIN 04/08 Released w/o Limitations UDAY BOWDENGOOD -PYONGT AEK(Hea ring Program [place] ) UDAY BOWDENGOOD-P YONGTAEK( Immunizat ions [place]) OUTPATIENT [id number] Notes Entered by: MORIAH AGUDELO 30 Jun 2016 1343 ------- ------- ------- ------- -- ANTHRAX NIELS ROBIN 06/30 Released w/o Limitations UDAY JACQUES -PYONGT AEK(Imm unizati ons [place] ) UDAY Gatica SAWYER-P [place]( Immunizat ions [place]) OUTPATIENT [id number] Notes Entered by: MORIAH AGUDELO 11 Jul 2016 1103 ------- ------- ------- ------- -- PPD SCREEN DERECKJTSAMPSON H 07/11 Released w/o Limitations [facility] MARCEL ESPAÑA([facility] marisela dill [place] ) [facility] [place](SRP Deploymen t Clinic) OUTPATIENT [id number] Notes Entered by: Ondina YOU 19 Aug 2016 0650 ------- ------- ------- ------- -- [facility] ANTHONY TAVARES 08/19 Released w/o Limitations [facility] [place](SR P Deploym ent Clinic) [facility] [place](Desiree ged Care [facility]) OUTPATIENT [id number] Notes Entered by: Gary SOSA 06 Nov 2016 1332 ------- ------- ------- ------- -- Absent NAHOMY Ray 11/06 Released w/o Limitations [facility] [place](Ma naged Care [facility]) [facility] [place]([facility] S[facility]A Gunner) TELE CONSULT [id number] Notes Entered by: FADI COLE 06 Nov 2016 1528 ------- ------- ------- ------- -- AdmJAY Downs 11/06 [facility] [place](AM H S05A Gunner) [facility] [place]([facility] S[facility]A Gunner) TELE CONSULT [id number] Notes Entered by: Rafael MORALES 07 Nov 2016 0853 ------- ------- ------- ------- -- NETWORK RESULTS / [facility]/ [id number] JAY COON 11/07 [facility] [place](AM H S05A Gunner) [facility] [place]([facility] S05A Gunner) TELE CONSULT [id number] Notes Entered by: WILBERT GIRALDO 10 Nov 2016 0836 ------- ------- ------- ------- -- NETWORK RESULTS ADMKATHY Knight 7 [facility] ED 11/10 [facility] [place](AM H S05A Gunner) [facility] [place]([facility]H S05A Gunner) OUTPATIENT [id number] Notes Entered by: Ari GILLETTE 09 Feb 2017 1328 ------- ------- ------- ------- -- Sinus Infecti on KIERA FISHER 02/09 Released w/o Limitations [facility] [place](AM H S05A Gunner) [facility] [place]([facility]) OUTPATIENT [id number] Annual MOHAN RILEY JR 06/05 Released w/o Limitations [facility] [place](Bi ggs Hearing Program ) [facility] [place](Phys ical Therapy [facility]) OUTPATIENT [id number] Notes Entered by: Gary CALABRESE 26 Jan 2018 1549 ------- ------- ------- ------- -- R hamstri ng pain GIANNI CALABRESE 01/26 Released w/o Limitations [facility] [place](Ph ysical Therapy [facility]) [facility] [place]([facility]H S05A Gunner) OUTPATIENT [id number] congest ion, cough [facility] ED 03/23 Released w/o Limitations [facility] [place](AM H S05A Gunner) [facility] [place](AMH S05A Gunner) OUTPATIENT [id number] Notes Entered by: GINA RODRIGUEZ 07 May 2018 0828 ------- ------- ------- ------- -- HTN KATEY RODRIGUEZ 05/07 Released w/o Limitations [facility] [place](AM H S05A Gunner) [facility] [place]([facility] S05A Gunner) OUTPATIENT [id number] EVAL BLOOD PRESSUR E [phone] MIESHA SALINAS ED 05/13 Released w/o Limitations [facility]an Zimmerman([facility] H S05A [facility]) [facility] OUTPATIENT [id number] Notes Entered by: Angelina ABDALLA 11 Aug 2018 1338 ------- ------- ------- ------- -- in process ing/vis MITCHEL Jones 08/11 Released w/o Limitations [facility] [facility] [place] OUTPATIENT [id number] Notes Entered by: TREVOR LOPEZ 11 Aug 2018 1347 ------- ------- ------- ------- -- TREVOR Ledesma 08/11 Released w/o Limitations [facility] [place] [place]) [facility] OUTPATIENT [id number] AD INPROCE SSING 3RD CHEM 74A [id number] TREVOR STRATTON 08/23 Released w/o Limitations [facility] [facility] OUTPATIENT [id number] QUETA HARPER 08/24 Released w/o Limitations [facility] [facility] [place] OUTPATIENT [id number] met IWONA Hough 09/14 Released w/o Limitations [facility]) [facility] M01B Rowdy) OUTPATIENT [id number] Fluid filled lump on ankle CAMRYN MITCHELL 09/21 Released w/o Limitations [facility] M[facility]) [place] TELE CONSULT [id number] Notes Entered by: ANNABEL EAGLE 14 Oct 2018 1139 ------- ------- ------- ------- -- results SHIVADIALLO AlfaroKIMBER A 10/14 Other Not Elsewhere Classified [place] M[facility]) [place] OUTPATIENT [id number] Notes Entered by: AILYN MAGUIRE 01 Dec 2018 1019 ------- ------- ------- ------- -- FLU VACCINE YESICA MAGUIRE 12/01 [facility]ased w/o Limitations [facility] [place] [place] OUTPATIENT [id number] Notes Entered by: Angelian ABDALLA 16 Feb 2019 1111 ------- ------- ------- ------- -- IMR/PHA /MF830 MEY DUGAN 02/16 Released w/o Limitations [place] OUTPATIENT [id number] Notes Entered by: JAYSON CARRILLO 27 Jun 2019 1354 ------- ------- ------- ------- -- IMR/SCR MITCHEL GOOD 06/26 Released w/o Limitations [place] OUTPATIENT [id number] Notes Entered by: Angelina ABDALLA 08 Jul 2019 1458 ------- ------- ------- ------- -- PRE DEPLOY/ DD 2795/ MARLO FRANCIS 07/07 Released w/o Limitations [facility] [place] [facility] [place] [id number] Notes Entered by: SHWETA PINO 08 Jul 2019 1524 ------- ------- ------- ------- -- Anthrax LOREN ELIZABETH 07/07 Released w/o Limitations [facility] [place] OUTPATIENT [id number] Notes Entered by: CHICA CULP 11 Jul 2019 1425 ------- ------- ------- ------- -- annual CHICA CULP 07/10 Released w/o Limitations [facility] [place] TELE CONSULT [id number] Notes Entered by: RAFY JEAN BAPTISTE 12 Jul 2019 1222 ------- ------- ------- ------- -- JUWAN Complet ed MARIELA JEAN BAPTISTE 07/11 Other Not Elsewhere Classified [facility] [place] [facility] [place]([facility]) OUTPATIENT [id number] Notes Entered by: ADENIKE BOWIE 04 Aug 2019 0930 ------- ------- ------- ------- -- MOB/PRAFUL TCOM/QA TAR/POLI ZHU 08/03 Released w/o Limitations [facility] [place]([facility] Deploy[facility] ent [facility]) Miguel Norris [facility] [place] OUTPATIENT [id number] Notes Entered by: SUKUMAR HAMILTON I 01 May 2020 1315 ------- ------- ------- ------- -- TYPHOID LUCINDA GLASS I. 05/01 Released w/o Limitations [place] [facility] Conserv[facility] ion) OUTPATIENT [id number] Annual KIKA UNGER 08/14 Released w/o Limitations [facility] Hearing Conserv ation) [facility](AMH M01A Red) OUTPATIENT [id number] f/u rt knee pain MARV GONZALEZ 09/24 Released w/o Limitations [facility](AMH M01A Red) [facility] Physical Therapy) OUTPATIENT [id number] Pain in right knee KIM YOUNG 09/26 Released with Work/Duty Limitations [facility] Physica l Therapy ) [facility]) OUTPATIENT [id number] rehab JHONATAN FAJARDO 10/01 Released w/o Limitations [facility] Phys[facility] ) [facility]) OUTPATIENT [id number] exJHONATAN Walker 10/03 Released w/o Limitations [facility] Phys[facility] ) [facility]) OUTPATIENT [id number] KIM Rose 10/09 Released w/o Limitations [facility] ) [facility]) OUTPATIENT [id number] KIM Rose 10/15 Released w/o Limitations [facility] Phys[facility] ) [facility]) OUTPATIENT [id number] KIM Rose 10/17 Released w/o Limitations [facility] Physica [facility] Therapy ) [facility]) OUTPATIENT [id number] KIM Rose 10/22 Released w/o Limitations [facility] ) [facility]) OUTPATIENT [id number] f/u on knee pain KIM YOUNG 10/23 Released with Work/Duty Limitations [facility] Phys[facility] Therapy ) [facility]) OUTPATIENT [id number] mri fu KIM YOUNG 11/09 Released with Work/Duty Limitations [facility] Physica [facility] Therapy ) [facility](AMH M01A Red) TELE CONSULT [id number] Notes Entered by: Ari PETERS 21 Nov 2020 1050 ------- ------- ------- ------- -- COVID TEST concern s w/sob CHRISTY LEROY 11/21 Advice Assessment [facility](AMH M01A Red) [facility] Orthopedi cs) OUTPATIENT [id number] Pain in right knee, [email or web address]. [email or web address], [phone] TIMOTHY CH 12/13 Released w/o Limitations [facility] Orthope dics) [facility] Mass Immunizat ions) OUTPATIENT [id number] Notes Entered by: TIFFANIE CAMPBELL 18 Dec 2020 0932 ------- ------- ------- ------- -- CHLOE WEBBER 12/18 Released w/o Limitations [facility] Mass Immuniz ations) [facility]) OUTPATIENT [id number] Preop DOS 30 Nov/ Right knee arthros copy w/ lateral meniscu s repair TIMOTHY CH 01/28 Released w/o Limitations [facility] d[facility]) [facility] Orth[facility]) TELE CONSULT [id number] Notes Entered by: Gianna KEATING 31 Jan 2021 1321 ------- ------- ------- ------- -- Post Dischar ge follow up HERNANDEZ KEATING 01/31 Other Not Elsewhere Classified [facility] Orthope d[facility]) [facility](AMH M01A Red) OUTPATIENT [id number] Notes Entered by: LAVON SUAZO 05 Feb 2021 1044 ------- ------- ------- ------- -- [facility] MARGUERITE SUAZO 02/05 Released w/o Limitations [facility](AMH M01A Red) [facility] Orth[facility] cs) OUTPATIENT [id number] [facility] LAVERN TIPTON RT KNEE MIMI. NADEGE 131.MIL @[facility] [phone] TIMOTHY CH 02/05 Released with Work/Duty Limitations [facility]) [facility] Physical [facility]) OUTPATIENT [id number] meniscu s(R) post op DOS 30 dec KIM YOUNG 02/13 Released with Work/Duty Limitations [facility] Phys[facility] Therapy ) [facility]) TELE CONSULT [id number] Notes Entered by: AISHWARYA YOUNG 14 Feb 2021 1521 ------- ------- ------- ------- -- POST OP NONCOMP KIM HUERTA 02/14 [facility] Phys[facility] Therapy ) [facility]) OUTPATIENT [id number] jaqueline FAJARDO JHONATAN DEL TORO 03/05 Released w/o Limitations [facility] Physica l Therapy ) [facility] Mass Immunizat ions) OUTPATIENT [id number] Notes Entered by: TIFFANIE CAMPBELL 07 Mar 2021 1131 ------- ------- ------- ------- -- COVID IMM MODERNA BOOSTER CHLOE CAMPBELL 03/07 Released w/o Limitations [facility] Mass Immuniz ations) [facility](AMH M01A Red) TELE CONSULT [id number] Notes Entered by: CECE HASSAN 11 Mar 2021 0802 ------- ------- ------- ------- -- Covid Test AYALA LEAVITT 03/11 Released to Self Care [facility](AMH M01A Red) [facility](AMH M01A Red) TELE CONSULT [id number] Notes Entered by: LORIE PARKER 11 Mar 20212110 ------- ------- ------- ------- -- Polypha rmacy DEC 2020 JOÃO PARKER 03/11 [facility](AMH M01A Red) [facility]) OUTPATIENT [id number] jaqueline FAJARDOJHONATAN 03/13 Released w/o Limitations [facility] Physica l Therapy ) [facility]) OUTPATIENT [id number] KIM Rose 03/19 Released w/o Limitations [facility] Physica [facility] Therapy ) [facility](AMH M01A Red) OUTPATIENT [id number] Fatigue , cough, congest ion (x 4 days) SAMIRA MOSCOSO 03/25 Sick at Home/Quarter s [facility](AMH M01A Red) [facility] Physical Therapy) OUTPATIENT [id number] f/u on meniscu s tear post op YOUNGKIM Rosaroi Katz 03/28 Released with Work/Duty Limitations [facility] Physica l Therapy ) [facility](Z Hearing Conservat ion) OUTPATIENT [id number] MEDPROS KURTIS LIZ 08/13 Released w/o Limitations [facility] Hearing Conserv ation) [facility](AMH M01B Blue) TELE CONSULT [id number] Notes Entered by: MOJGAN AKBAR 21 Aug 2021 0920 ------- ------- ------- ------- -- [id number] SHARI STEEL 08/21 [facility](AMH M01B Blue) [facility](Z Optometry ) OUTPATIENT [id number] Notes Entered by: Gavi RAMEY Sherita 29 Aug 2021 1438 ------- ------- ------- ------- -- Medpros CHRIS RAMEY 08/29 Released w/o Limitations [facility](Z Optomet ry) [facility](AMH M01A Red) OUTPATIENT [id number] PHDA pre-dep loyment F2F JONAS GANN 08/30 Released w/o Limitations [facility](AMH M01A Red) [facility](AMH M01A Red) TELE CONSULT [id number] Notes Entered by: LORIE PARKER 09 Sep 2021 1558 ------- ------- ------- ------- -- Polypha rmacy JUNE 2021 JOÃO PARKER 09/09 [facility](AMH M01A Red) [facility](AMH M01B Blue) TELE CONSULT [id number] Notes Entered by: STEPH SANTACRUZO NIGEL 07 Oct 2021 1303 ------- ------- ------- ------- -- SEP1 [id number] JAYESH STOUT 10/07 [facility](AMH M01B Blue) [facility](AMH M01A Red) OUTPATIENT [id number] blood pressur e 1 SOLOMON SAADIA DUTTON 10/17 Released w/o Limitations [facility](AMH M01A Red) [facility](AMH M01A Red) OUTPATIENT [id number] blood pressur e #2 SOLOMON SAADIA DUTTON 10/18 Released w/o Limitations [facility](AMH M01A Red) [facility](AMH M01A Red) OUTPATIENT [id number] blood pressur e #3 SOLOMON SAADIA DUTTON 10/21 Released w/o Limitations [facility](AMH M01A Red) [facility](AMH M01B Blue) OUTPATIENT [id number] hyperte nsion wvr for travel TIERNEY NARVAEZ 10/24 Released w/o Limitations [facility](AMH M01B Blue) [facility](AMH M01A Red) TELE CONSULT [id number] Notes Entered by: MARV PERALES 29 Oct 2021 1425 ------- ------- ------- ------- -- med refill MARV GONZALEZ 10/29 [facility](AMH M01A Red) [facility] Epidemiol [facility]) TELE CONSULT [id number] Notes Entered by: Rosario RITTER 30 Oct 2021 1447 ------- ------- ------- ------- -- Covid + test result LOUIS RITTER 10/30 [facility] Epidemi ology Clinic) Theater Facility OUTPATIENT [id number] Theater Provider 12/05 Sick at Home/Quarter s Theater Facilit y [facility] Mass Immunizat ions) OUTPATIENT [id number] Notes Entered by: Gary DIAZ 18 Dec 2021 1339 ------- ------- ------- ------- -- Flu Vaccine CHLOE CARLOS 12/18 Released w/o Limitations [facility] Mass Immuniz ations) [facility] Mass Immunizat ions) OUTPATIENT [id number] Notes Entered by: DIANNE VEE 18 Dec 2021 1340 ------- ------- ------- ------- -- FLU VACCINE CHLOE CARLOS 12/18 Released w/o Limitations [facility] Mass Immuniz ations) [facility](AMH M01A Red) OUTPATIENT [id number] discuss sleep issues/ possibl e sleep study DAVIS MCKEON 01/17 Released w/o Limitations [facility](AMH M01A Red) [facility](AMH M01A Red) OUTPATIENT [id number] Flu Like Symptom s MARV GONZALEZ 01/27 Released w/o Limitations [facility](AMH M01A Red) [facility](AMH M01A Red) TELE CONSULT [id number] Notes Entered by: FRITZ STEWART TO 10 Feb 2022 1308 ------- ------- ------- ------- -- Rx refill GIANNI ASHER 02/10 Other Not Elsewhere Classified [facility](AMH M01A Red) [facility](AMH M01A Red) OUTPATIENT [id number] discuss labs/fa aditya history MARV GONZALEZ 03/12 Released w/o Limitations [facility](AMH M01A Red) [facility](AMH M01A Red) TELE CONSULT [id number] Notes Entered by: MAGDA SALTER 06 May 2022 1100 ------- ------- ------- ------- -- SAADIA Mcmanus 05/06 Other Not Elsewhere Classified [facility](AMH M01A Red) [facility](AMH M01A Red) OUTPATIENT [id number] f/up to discuss lab results from 12JAN (f2f) MARV GONZALEZ 05/21 Released w/o Limitations [facility](AMH M01A Red) [facility]) OUTPATIENT [id number] SPEC [id number] ROLANDO PINEDA 05/28 Released w/o Limitations [facility]) [facility]) TELE CONSULT [id number] Notes Entered by: AYSHA ARELLANO 28 May 2022 0942 ------- ------- ------- ------- -- Watch Pat needed thanks! CHRISTY LEROY 05/28 Advice Assessment [facility]) [facility](AMH M01A Red) OUTPATIENT [id number] HST IV RN CHRISTY LEROY 06/04 Released w/o Limitations [facility](AMH M01A Red) [facility](AMH M01A Red) OUTPATIENT [id number] HST DROP OFF CHRISTY LEROY 06/04 Released w/o Limitations [facility](AMH M01A Red) [facility](AMH M01A Red) TELE CONSULT [id number] Notes Entered by: Gavi SMALL 05 Jun 2022 1459 ------- ------- ------- ------- -- Med refill SOLOMONSAADIA NATO 06/05 Other Not Elsewhere Classified [facility](AMH M01A Red) [facility] Sleep Clinic) OUTPATIENT [id number] Notes Entered by: AISHWARYA MARTIN 06 Jun 2022 1616 ------- ------- ------- ------- -- FILIPE+ YASMIN DELEON 06/06 Released w/o Limitations [facility] Sleep Clinic) [facility] Sleep Clinic) OUTPATIENT [id number] PSG RESULTS [id number] SHANNON SHARPE 06/09 Released w/o Limitations [facility] Sleep Clinic) [facility](AMH M01A Red) OUTPATIENT [id number] f/up to discuss sleep meds DAVIS MCKEON 06/16 Released w/o Limitations [facility](AMH M01A Red) [facility](AMH M01A Red) TELE CONSULT [id number] Notes Entered by: ROZINA MCKEON 20 Jun 2022 0954 ------- ------- ------- ------- -- sleep concern s ELIGIO CEVALLOS 06/20 [facility](AMH M01A Red) [facility](AMH M01A Red) TELE CONSULT [id number] Notes Entered by: POLI GRADY 06 Oct 2022 1102 ------- ------- ------- ------- -- COVID TEST ELIGIO CEVALLOS 10/06 [facility](AMH M01A Red) [facility] Opt[facility] ) OUTPATIENT [id number] Notes Entered by: Gavi CARNEY 14 Oct 2022 1430 ------- ------- ------- ------- -- MEDPROS and ETS LENNIE CARNEY 10/14 Released w/o Limitations [facility] Optomet [facility]) [facility] Mass Immunizat ions) OUTPATIENT [id number] typhoid CHLOE CARLOS 10/15 Released w/o Limitations [facility] Mass Immuniz ations) [facility](AMH M01B Blue) OUTPATIENT [id number] VIRTUAL , PHA part 2, cell: [phone] BREA, TIERENY M 10/28 Released w/o Limitations [facility](AMH M01B Blue) [facility](AMH M01A Red) OUTPATIENT [id number] ear flush ELIGIO CEVALLOS 10/29 Released w/o Limitations [facility](AMH M01A Red) [facility] Opt[facility] ) OUTPATIENT [id number] routine health check ORLANDO GHADA JALIL 10/29 Released w/o Limitations [facility] Optomet ry) [facility] Hearing Conservat ion) OUTPATIENT [id number] ANNUAL STEPHANE REYNOSO 11/05 Released w/o Limitations [facility] Hearing Conserv ation) [facility](AMH M01A Red) OUTPATIENT [id number] PDHRA PART 2, F2F DAVIS MCKEON 11/06 Released w/o Limitations [facility](AMH M01A Red) Procedures Combined list of: 1) Procedures from Department of Veterans Affairs facilities going back up to thelast 18 months, not all VA non-surgical procedures are included; 2) All procedures from the Department of Defense facilities. Procedure Procedure Type Code Date Perfomer Comments Sourc e TYPHOID VACCINE, CAPSULAR POLYSACCHARIDE (VICPS), FOR INTRAMUSCULAR USE 2020 DoD HEPATITIS A VACCINE (HEPA), ADULT DOSAGE, FOR INTRAMUSCULAR USE 2013 DoD EAR MOLD/INSERT, NOT DISPOSABLE, ANY TYPE 2013 [facility] COLLECTION OF VENOUS BLOOD BY VENIPUNCTURE 2013 DoD ANTHRAX VACCINE, FOR SUBCUTANEOUS OR INTRAMUSCULAR USE 2016 DoD PURE TONE AUDIOMETRY (THRESHOLD), AUTOMATED; AIR ONLY 2016 DoD ANTHRAX VACCINE, FOR SUBCUTANEOUS OR INTRAMUSCULAR USE 2015 DoD INFLUENZA VACCINE, INACTIVATED (IIV), SUBUNIT, ADJUVANTED, FOR INTRAMUSCULAR USE 2015 DoD IMMUNIZATION ADMINISTRATION (INCLUDES PERCUTANEOUS, INTRADERMAL, SUBCUTANEOUS, OR INTRAMUSCULAR INJECTIONS); 1 VACCINE (SINGLE OR COMBINATION VACCINE/TOXOID) 2015 DoD ANTHRAX VACCINE, FOR SUBCUTANEOUS OR INTRAMUSCULAR USE 2015 DoD SCREENING TEST OF VISUAL ACUITY, QUANTITATIVE, BILATERAL 2019 DoD PHYSICAL OR MANIPULATIVE THERAPY PERFORMED FOR MAINTENANCE RATHER THAN SCIENTOLOGIST 2017 DoD PURE TONE AUDIOMETRY (THRESHOLD), AUTOMATED; AIR ONLY 2017 DoD CASE MANAGEMENT, EACH 15 MINUTES 2016 [facility] TELE ASSESS & MGT SRV PROV QUAL [...] 1 VACCINE (SINGLE OR COMBINATION VACCINE/TOXOID) 2018 DoD OXYGEN UPTAKE, GAS ANALYSIS; REST, INDIRECT (SEPARATE PROCEDURE) 2018 [facility] NUTRITION CLASSES, NON-PHYSICIAN PROVIDER, PER SESSION 2018 DoD AUDIOMETRIC TESTING OF GROUPS 2018 DoD IMMUNIZATION ADMINISTRATION (INCLUDES PERCUTANEOUS, INTRADERMAL, SUBCUTANEOUS, OR INTRAMUSCULAR INJECTIONS); 1 VACCINE (SINGLE OR COMBINATION VACCINE/TOXOID) 2015 DoD SCREENING TEST OF VISUAL ACUITY, QUANTITATIVE, BILATERAL 2015 DoD AUDIOMETRIC TESTING OF GROUPS 2015 DoD INFLUENZA VACCINE, INACTIVATED (IIV), SUBUNIT, ADJUVANTED, FOR INTRAMUSCULAR USE 2015 [facility] EAR MOLD/INSERT, NOT DISPOSABLE, ANY TYPE 2022 DoD FITTING OF SPECTACLES, EXCEPT FOR APHAKIA; MONOFOCAL 2022 DoD REMOVAL IMPACTED CERUMEN USING IRRIGATION/LAVAGE, UNILATERAL 2022 DoD BRIEF COMM TECH-BASE SERV,E.G. VIRT CHK-IN,BY PHYS/OTH QUAL HCP,RPT E&M SERV,PROV TO EST PT,NOT ORIG FRM REL E/M SERV PROV W/IN PREV 7DAY NOR LEAD TO E/M SRV/PX W/IN NEXT 24HR/SOON GENARO; 5-10 MIN DISC 2022 DoD IMMUNIZATION ADMINISTRATION (INCLUDES PERCUTANEOUS, INTRADERMAL, SUBCUTANEOUS, OR INTRAMUSCULAR INJECTIONS); 1 VACCINE (SINGLE OR COMBINATION VACCINE/TOXOID) 2022 DoD SCREENING TEST OF VISUAL ACUITY, QUANTITATIVE, BILATERAL 2022 [facility] SLEEP STUDY, UNATTENDED, SIMULTANEOUS RECORDING; HEART RATE, OXYGEN SATURATION, RESPIRATORY ANALYSIS (EG, BY AIRFLOW OR PERIPHERAL ARTERIAL TONE), AND SLEEP TIME 2022 DoD IMMUNIZATION ADMINISTRATION (INCLUDES PERCUTANEOUS, INTRADERMAL, SUBCUTANEOUS, OR INTRAMUSCULAR INJECTIONS); 1 VACCINE (SINGLE OR COMBINATION VACCINE/TOXOID) 2021 [facility] INFLUENZA VIRUS VACCINE, QUADRIVALENT (IIV4), SPLIT VIRUS, PRESERVATIVE FREE, 0.5 ML DOSAGE, FOR INTRAMUSCULAR USE 2021 [facility] EDUCATION &TRAINING, PATIENT SELF-MGT QUALIFIED, NONPHYSICIAN HEALTH PETROLOGY TEACHER USING STDIZED CURRICULUM, [id number] W THE PATIENT (COULD INCL CAREGIVER/FAMILY) EA 30 MIN; INDIVIDUAL PATIENT 2021 DoD WAIVER SERVICES; NOT OTHERWISE SPECIFIED (NOS) 2021 DoD BLOOD PRESSURE MEASURED (CKD)(DM) 2021 DoD BLOOD PRESSURE MEASURED (CKD)(DM) 2021 DoD BLOOD PRESSURE MEASURED (CKD)(DM) 2021 DoD WAIVER SERVICES; NOT OTHERWISE SPECIFIED (NOS) 2021 DoD SCREENING TEST OF VISUAL ACUITY, QUANTITATIVE, BILATERAL 2021 [facility] PATIENT EDUCATION, NOT OTHERWISE CLASSIFIED, NON-PHYSICIAN PROVIDER, INDIVIDUAL, PER SESSION 2021 [facility] THERAPEUTIC PROCEDURE, 1 OR MORE AREAS, EACH 15 MINUTES; THERAPEUTIC EXERCISES TO DEVELOP STRENGTH AND ENDURANCE, RANGE OF MOTION AND FLEXIBILITY 2021 [facility] THERAPEUTIC PROCEDURE(S), GROUP (2 OR MORE INDIVIDUALS) 2021 [facility] APPLICATION OF A MODALITY TO 1 OR MORE AREAS; VASOPNEUMATIC DEVICES 2021 [facility] IMMUNIZATION ADM,IM INJECTION OF SEVERE AC RESPIRATORY SYNDROME CORONAVIR 2 (SARS-COV-2) (CORONAVIR DIS [COVID-19]) VACCINE,MRNA-LNP,S PIKE PROTEIN,PRESERVATI VE FREE,50 MCG/0.25 ML DOSAG,BOOSTER DOSE 2021 [facility] THERAPEUTIC PROCEDURE, 1 OR MORE AREAS, EACH 15 MINUTES; THERAPEUTIC EXERCISES TO DEVELOP STRENGTH AND ENDURANCE, RANGE OF MOTION AND FLEXIBILITY 2021 [facility] PHYSICAL THERAPY EVALUATION:LOW COMPLEXITY,REQ:HIS T W NO PERS FACT &/COMORB THAT IMPACT PLAN OF CARE;CLIN DECIS MAKING OF LOW COMPLEXITY,TYPICAL LY,20 MIN ARE SPENT [id number]-[id number] W THE PATIENT &/FAMILY 2020 [facility] POSTOPERATIVE FOLLOW-UP VISIT, NORMALLY INCLUDED IN THE SURGICAL PACKAGE, INDICATE THAT EVALUATION & MANAGEMENT SERVICE WAS PERFORMED DURING A POSTOPERATIVE PERIOD REASON RELATED ORIGINAL PROCEDURE 2020 [facility] TELEHEALTH ORIGINATING SITE FACILITY FEE 2020 [facility] ANESTHESIA FOR OPEN OR SURGICAL ARTHROSCOPIC PROCEDURES ON KNEE JOINT;NOT OTHERWISE SPECIFIED 2020 [facility] ULTRASONIC GUIDANCE FOR NEEDLE PLACEMENT (EG, BIOPSY, ASPIRATION, INJECTION, LOCALIZATION DEVICE), IMAGING SUPERVISION AND INTERPRETATION 2020 [facility] UNLISTED SPECIAL SERVICE, PROCEDURE OR REPORT [facility]: PRE-ANESTHESIA EVALUATION 2020 [facility] INFLUENZA VIRUS VACCINE, QUADRIVALENT (IIV4), SPLIT VIRUS, PRESERVATIVE FREE, 0.5 ML DOSAGE, FOR INTRAMUSCULAR USE 2020 [facility] WAIVER SERVICES; NOT OTHERWISE SPECIFIED (NOS) 2020 [facility] RE-EVAL,PHYSICAL THERAPY EST PLAN OF CARE,REQ:EXAM,REV, HX & USE,STAND TESTS &KARINA REQ;REV PLAN OF CARE USING STAND PAT ASSESS INSTR &/KARINA ASSESS FUNC OUTCOME TYP,20 MIN SPENT [id number] W PAT&/FAM 2020 [facility] RE-EVAL,PHYSICAL THERAPY EST PLAN OF CARE,REQ:EXAM,REV, HX & USE,STAND TESTS &KARINA REQ;REV PLAN OF CARE USING STAND PAT ASSESS INSTR &/KARINA ASSESS FUNC OUTCOME TYP,20 MIN SPENT [id number] W PAT&/FAM 2020 [facility] THERAPEUTIC PROCEDURE, 1 OR MORE AREAS, EACH 15 MINUTES; THERAPEUTIC EXERCISES TO DEVELOP STRENGTH AND ENDURANCE, RANGE OF MOTION AND FLEXIBILITY 2020 [facility] THERAPEUTIC PROCEDURE, 1 OR MORE AREAS, EACH 15 MINUTES; THERAPEUTIC EXERCISES TO DEVELOP STRENGTH AND ENDURANCE, RANGE OF MOTION AND FLEXIBILITY 2020 [facility] THERAPEUTIC PROCEDURE(S), GROUP (2 OR MORE INDIVIDUALS) 2020 [facility] THERAPEUTIC PROCEDURE, 1 OR MORE AREAS, EACH 15 MINUTES; THERAPEUTIC EXERCISES TO DEVELOP STRENGTH AND ENDURANCE, RANGE OF MOTION AND FLEXIBILITY 2020 [facility] APPLICATION OF A MODALITY TO 1 OR MORE AREAS; VASOPNEUMATIC DEVICES 2020 [facility] APPLICATION OF A MODALITY TO 1 OR MORE AREAS; VASOPNEUMATIC DEVICES 2020 [facility] THERAPEUTIC PROCEDURE, 1 OR MORE AREAS, EACH 15 MINUTES; THERAPEUTIC EXERCISES TO DEVELOP STRENGTH AND ENDURANCE, RANGE OF MOTION AND FLEXIBILITY 2020 [facility] PATIENT EDUCATION, NOT OTHERWISE CLASSIFIED, NON-PHYSICIAN PROVIDER, INDIVIDUAL, PER SESSION 2020 [facility] Immunization Administration Each Additional Vaccine Immunization Administration Each Additional Vaccine 87264 2015 SARAHI NORRIS [facility] Vaccines Viral Turkish Encephalitis Inactivated, Intramuscular Vaccines Viral Turkish Encephalitis Inactivated, Intramuscular 32826 2015 SARAHI NORRIS RIGHT ARM IM 0.5 ML [facility] Screening Test Of Visual Acuity, Quantitative, Bilateral Screening Test Of Visual Acuity, Quantitative, Bilateral 34175 2015 SARAHI NORRIS CLASS 1 UNCORRECTED DoD Immunization Administration One Vaccine Immunization Administration One Vaccine 74067 2015 YESICA OSUNA Small Pox: No skin preparation was performed prior to vaccination with bifurcated needle. Using aseptic technique SM received 15 jabs of perpendicular needle within a 5mm area. SM was injected with .0025ml of (reconstituted [id number] vaccine live vaccinia virus) dermally. SM was [...] understanding. No adverse reaction noted post injection. [facility] Vaccines Viral Turkish Encephalitis Inactivated, Intramuscular Vaccines Viral Turkish Encephalitis Inactivated, Intramuscular 88266 2015 CAMPISE, YESICA P AFGHAN ENCEPH: NOT , Using sterile technique skin site cleansed with a suitable germicide and site dry prior to vaccination. Vaccination was administered using sterile technique. Patient tolerated injection well. Patient advised to remain in clinic for 20 min. post injection and report any unusual reaction. Patient verbalized understanding. No adverse reaction noted post injection. [facility] Meningococcal Conjugate Vaccine Tetravalent (A C Y [...] understanding. No adverse reaction noted post injection. [facility] Typhoid Vaccine Vi Capsular Polysaccharide, For Intramus Use Typhoid Vaccine Vi Capsular Polysaccharide, For Intramus Use 52115 2015 YESICA OSUNA Typhoid Vi: Using sterile [...] understanding. No adverse reaction noted post injection. [facility] Anthrax Vaccine, For Subcutaneous Use Anthrax Vaccine, For Subcutaneous Use 15768 2015 YESICA OSUNA Anthrax : No latex allergy, Safe for nursing mothers, no hx of Guillain Saucier', Using sterile technique skin site cleansed with [...] understanding. No adverse reaction noted post injection. [facility] Screening Test Of Visual Acuity, Quantitative, Bilateral Screening Test Of Visual Acuity, Quantitative, Bilateral 52462 2015 MIMI DEL CASTILLO [facility] Venipuncture Venipuncture 14824 2015 MIMI DEL CASTILLO [facility] Testing 77582 2015 RAEANN SAEED [facility] Vaccines Viral Polio, Inactivated (Salk) Vaccines Viral Polio, Inactivated (Salk) 59390 2015 YESICA OSUNA Vaccination: Using sterile technique skin site cleansed with a suitable germicide and site dry prior to vaccination. Vaccination was administered using sterile technique. Patient tolerated injection well. Patient advised to remain in clinic for 20 min. post injection and report any unusual reaction. Patient verbalized understanding. No adverse reaction noted post injection. [facility] Hepatitis A Vaccine Adult Dosage (Intramuscular Use) Hepatitis A Vaccine Adult Dosage (Intramuscular Use) 10872 2013 NICK LUNDBERG Hep A (Adult); Series #: 1; 1.0 mL; IM; Right [place]; [facility] [place]; Lot: [id number]; VIS given (Marguerite: 12/24/10). [facility] Immunization Administration One Vaccine Immunization Administration One Vaccine 42504 2013 NICK LUNDBERG Ear Protector Attenuation Measurements Ear Protector Attenuation Measurements 61980 2013 GERRY WASHINGTON Ear mold/insert, not disposable, any type 2013 GERRY WASHINGTON Cerumen Removal Left Ear Irrigation Cerumen Removal Left Ear Irrigation 01532 2013 GERRY WASHINGTON Cerumen Removal Left Ear Suction Cerumen Removal Left Ear Suction 04216 2013 GERRY WASHINGTON Cerumen Removal Right Ear Irrigation Cerumen Removal Right Ear Irrigation 75235 2013 GERRY WASHINGTON Cerumen Removal Right Ear Suction Cerumen Removal Right Ear Suction 00090 2013 GERRY WASHINGTON Venipuncture Venipuncture 32599 2013 PAULA HERNANDEZ [facility] Pulmon Function - O2 Uptake - Gas Analysis Rest, Ind Pulmon Function - [place] [address] 2018 IWONA MAZARIEGOS [facility] Patient Counseling Medical Management Individual Patient Patient Counseling Medical Management Individual Patient 23810 2018 IWONA MAZARIEGOS Preventive Medicine Physical Exam Vital Signs Recorded Preventive Medicine Physical Exam Vital Signs Recorded 2018 IWONA MAZARIEGOS Nutrition cla es, non-physician provider, per se ion 2018 MUNGUIAJEANNE FORDA [facility] Testing [facility] Testing 91551 2018 TREVOR LOPEZ [facility] Threshold Audiogram (Pure Tone) Automated Threshold Audiogram (Pure Tone) Automated [id number] 2017 MOHAN RILEY JR [facility] Case Management, each 15 minutes 2016 NAHOMY SOSA [facility] Coordinated care fee, maintenance rate 2016 NAHOMY SOSA [facility] Immunization Administration One Vaccine Immunization Administration One Vaccine 57970 2016 YACOBELLTIFFANY MACKENZIE F [facility] Immunization Administration One Vaccine Immunization Administration One Vaccine 48208 2015 AKUA HUFFMAN [facility] Immunization Administration One Vaccine Immunization Administration One Vaccine 47815 2015 NIELS ROBIN [facility] Immunization Administration One Vaccine Immunization Administration One Vaccine 83955 2015 AKUA HUFFMAN [facility] Tdap Vaccine Tdap Vaccine 54016 2015 NATHANAELAKUA [facility] Immunization Administration One Vaccine Immunization Administration One Vaccine 31517 2015 SARAHI NORRIS [facility] Mobilization Soft Ti ue Mobilization Soft Tissue 65204 GIANNI CALABRESE Physical Therapy: ___ Se ion Segments, 15 Minutes Each Physical Therapy: ___ Session Segments, 15 Minutes Each 49875 GIANNI CALABRESE Needle, sterile, any size, each GIANNI CALABRESE Physical or manipulative therapy performed for maintenance rather than hindu GIANNI CALABRESE Typhoid Vaccine Vi Capsular Polysaccharide, For Intramus Use Typhoid Vaccine Vi Capsular Polysaccharide, For Intramus Use 38651 LUCINDA GLASS I. Typhoid, ViCPs; Series #: 1; 0.5 mL; IM; Left Arm; Mfg: [employer] P[employer]; Lot: [id number]; VIS given (Marguerite: 12/29/2018). DoD Immunization Administration One Vaccine Immunization Administration One Vaccine 78341 LUCINDA GLASS I. [facility]ometry Group Testing Audiometry Group Testing 39722 CHICA CULP [facility] Non-Physician Phone Call To Pt/Provider Lengthy (21-30 min) Non-Physician Phone Call To Pt/Provider Lengthy (21-30 min) 60277 MARIELA JEAN BAPTISTE [facility] Threshold Audiogram (Pure Tone) Automated Threshold Audiogram (Pure Tone) Automated [id number] KIKA UNGER [facility] Patient education, not otherwise cla ified, non-physician provider, individual, per se ion KIKA UNGER [facility] Physical Therapy: ___ Se ion Segments, 15 Minutes Each Physical Therapy: ___ Session Segments, 15 Minutes Each 13373 JHONATAN FAJARDO 25 minutes one on one with patient who performed exercises to improve flexibility, strength, balance and stability for rehab per flow chart above. [facility] Physical Medicine - Group Physical Therapy Se ion Physical Medicine - Group Physical Therapy Session 38417 NORTHJHONATAN SAUCEDO Patient performed treatment exercises per flow chart above with one other patient in a group session for rehab. [facility] Modalities Vasopneumatic Device Modalities Vasopneumatic Device 13188 JHONATAN FAJARDO Patient received cryotherapy with pneumatic pressure for prescribed time in above flow chart for rehab. Girth measurement 2 inches proximal the knee joint was 43 cm prior and post cryotherapeutic pneumatic treatment. for rehab. [facility] Modalities Vasopneumatic Device Modalities Vasopneumatic Device 89246 JHONATAN FAJARDO Patient received cryotherapy with pneumatic pressure for prescribed time in above flow chart for rehab. Girth measurement 2 inches proximal the knee joint was 39.5 cm prior and post cryotherapeutic pneumatic treatment. for rehab. [facility] Physical Therapy: ___ Se ion Segments, 15 Minutes Each Physical Therapy: ___ Session Segments, 15 Minutes Each 53962DONALD BRADLEY 35 minutes one on one with patient who performed exercises to improve flexibility, strength, balance and stability for rehab per flow chart above. [facility] Physical Therapy: ___ Se ion Segments, 15 Minutes Each Physical Therapy: ___ Session Segments, 15 Minutes Each 77255 DONALD WALKER 15 minutes one on one with patient who performed exercises to improve flexibility, strength, balance and stability for rehab per flow chart above. [facility] Physical Therapy: ___ Se ion Segments, 15 Minutes Each Physical Therapy: ___ Session Segments, 15 Minutes Each 17522 DONALD WALKER 40 minutes one on one with patient who performed exercises to improve flexibility, strength, balance and stability for rehab per flow chart above. [facility] Physical Therapy: ___ Se ion Segments, 15 Minutes Each Physical Therapy: ___ Session Segments, 15 Minutes Each 78926DONALD BRADLEY 27 minutes one on one with patient who performed exercises to improve flexibility, strength, balance and stability for rehab per flow chart above. [facility] Physical Medicine Physical Therapy Re-Evaluation Physical Medicine Physical Therapy Re-Evaluation 65066 DONALD YOUNG [facility] Telehealth originating site facility MARGUERITE Rios [facility] Postoperative Visit, Without Charge Postoperative Visit, Without Charge 02442 TIMOTHY CH [facility] Exercise equipment DONALD YOUNG [facility] Physical Therapy Gait Training Physical Therapy Gait Training 39682 DONALD YOUNG [facility] Crutches, underarm, wood, adjustable or fixed, pair, with pads, tips and handgrips DONALD YOUNG [facility] Physical Therapy: ___ Se ion Segments, 15 Minutes Each Physical Therapy: ___ Session Segments, 15 Minutes Each 61539JHONATAN ROY 45 minutes one on one with patient who performed exercises to improve flexibility, strength, balance and stability for rehab per flow chart above. [facility] Physical Therapy: ___ Se ion Segments, 15 Minutes Each Physical Therapy: ___ Session Segments, 15 Minutes Each 89303JHONATAN ROY 30 minutes one on one with patient who performed exercises to improve flexibility, strength, balance and stability for rehab per flow chart above. [facility] Modalities Vasopneumatic Device Modalities Vasopneumatic Device 13985 JHONATAN FAJARDO Patient received cryotherapy with pneumatic pressure for prescribed time in above flow chart for rehab. Girth measurement 3 inches proximal the knee joint was 46 cm prior and post cryotherapeutic pneumatic treatment. for rehab. [facility] Physical Medicine - Group Physical Therapy Se ion Physical Medicine - Group Physical Therapy Session 36762 DONALD WALKER [facility] Screening Test Of Visual Acuity, Quantitative, Bilateral Screening Test Of Visual Acuity, Quantitative, Bilateral 41102 CHRIS RAMEY [facility] Waiver services; not otherwise specified (NOS) JONAS GANN [facility] A e ment & Intervention Blood Pre ure Measured Assessment & Intervention Blood Pressure Measured 2000 TOY, SAADIA PORTILLOLE [facility] Patient Counseling Medical Management Individual Patient Patient Counseling Medical Management Individual Patient 59933 LOUIS RITTER [facility] Sleep Study Unattended Record: Heart Rate, O2 Sat, Resp Analysis, Sleep Time Sleep Study Unattended Record: Heart Rate, O2 Sat, Resp Analysis, Sleep Time 36857 YASMIN DELEON - This encounter documents the professional component workload associated with this sleep study. The full report is located in [facility]. The [facility] note is dated to reflect the date the study was actually performed. Interpretation of the study was completed on the date of this encounter. [facility] Typhoid Vaccine Vi Capsular Polysaccharide, For Intramus Use Typhoid Vaccine Vi Capsular Polysaccharide, For Intramus Use 12497 WILBERT STOKES Typhoid, ViCPs; Series #: 1; 0.5 mL; IM; Left Arm; Mfg: Sanofi P[employer]ur; Lot: [id number]; VIS given (Marguerite: 12/29/2018). DoD A e ment & Intervention Use Of Tobacco A e ed Assessment & Intervention Use Of Tobacco Assessed 1000F TIERNEY NARVAEZ Brief communication technology-based service, e.g. virtual check-in, by a physician or other qualified health care profe shala who can report evaluation and management services, provided to an established patient, not originating from a related E/M service provided within the previous 7 days nor leading to an E/M service or procedure within the next 24 hours or soonest available appointment; 5-10 minutes of medical discu ion TIERNEY NARVAEZ Cerumen Removal Right Ear Irrigation Cerumen Removal Right Ear Irrigation 83207 ELIGIO CEVALLOS Cerumen Removal Left Ear Irrigation Cerumen Removal Left Ear Irrigation 14105 ELIGIO CEVALLOS Ophthalmological New Patient Start Comprehensive Care Ophthalmological New Patient Start Comprehensive Care 29443 GHADA PERRY Determination Of Refractive State Determination Of Refractive State 98533 GHADA PERRY Fundus Photography Fundus Photography 77895 GHADA PERRY Spectacles Services Fitting Monofocals (Not For Aphakia) Spectacles Services Fitting Monofocals (Not For Aphakia) 91161 GHADA PERRY Ear mold/insert, not disposable, any type RAFAEL BRENNER [facility] Appendectomy; Appendectomy; 78412 2016 0008Moncho chapman [facility] Social History Combined list of available smoking, tobacco, and other social history from Department of Defense and Veterans Affairs facilities. Social History Type Response Date Comment Sourlavinia sherita Smoking Status Never (less than 100 in lifetime) 07/02/2020 Unknown Organization Sex Representation Male (finding) 05/09/2020 Un known Organization This section is an empty social history section. [facility] Sexual Orientation Ambula tory Pharmacy Gender identity Ambulator y Pharmacy Assessment and Plan Combined list of future [...] 1 tab(s) Oral Daily,Instr:for blood pressure, Pharmacy: [facility] [Federal Rx: #90 last filled 06/09/23] [...] Extracted from:Title: Ear Irrigation Note Author: [facility] Date: 02/25/23 1. I mpacted cerumen of bilateral ears Patient presents for Ear flushing, due to b/l ear impaction. Patient denies any pain or discharge to inner ears. Patient denies decreased loss of hearing. Both ears irrigated and flushed of impacted cerumen. Patient tolerated procedure well. Ordered Debrox ear drops to assist with home ear wax removal. Marv Argueta FISH SALTER I mmunizations [facility] Extracted from:Title: Office Clinic Note Author: TIERNEY NARVAEZ Date: 02/19/23 1. 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 Pt to continue physical therapy at [facility]. Medication ordered according to Neurosurgeon's recommendation. Pt [...] in the morning for 7 days, Pharmacy: [facility] [Not filled] diclofenac(diclofenac sodium 75 mg oral delayed release tablet), 1 tab(s), Oral, BID, # 14 tab(s), 0 total refill(s), Maintenance, 1 tab(s) Oral BID,x7 days, Pharmacy: [facility] [Not filled] lansoprazole(lansoprazole 30 mg oral delayed release capsule), 1 cap(s), Oral, Daily, # 60 cap(s), 2 total refill(s), Maintenance, 1 cap(s) Oral Daily, Pharmacy: [facility] [Not filled] Tierney Narvaez PA-C, [facility] Extracted from:Title: [facility] [place] Author: MAGDIEL PALM RN Date: 01/02/23 Health [...] continue care plan as outlined by their Cold Molding Press Operator and that services provided by the [facility] team are meant to be an addition to that care plan. Client stated understanding. Client advise of the [facility]'s stress and sleep management classes/tools. Extracted from:Title: [facility] Bod Repeat Author: MAGDIEL PALM RN [...] MCKEON Date: 11/28/22 1. E XAM, OCCUPATIONAL, SNF OR SEPARATION FROM [place], LONG Completed physical with the following problems [...] MCKEON Date: 11/27/22 1. E XAM, OCCUPATIONAL, SNF OR SEPARATION FROM [place], SHORT 2807-1 completed for this direct service professional Extracted from:Title: Office Clinic Note- PHHRA 2900 Author: MARLO ELNNON NP Date: 07/24/20 1. A SSESSMENT, POST DEPLOYMENT, DOCUMENTED ON [id number] (PDHRA) PDHRA ( DD Form 2900) Deployer: MIMI LAWRENCE Signed by: ari markham Nurse Practitioner o n Deployer reports most recent deployment was to [facility] a nd has deployed 1 t imes before in the past five years. VA Disability Information No VA Disability Information Available. 1. Address concerns identified on deployer questions 1 and 2 Deployer Comments : N /A Deployer Comments: N /A Was the [place]'s e-Profile and/or AHLTA history reviewed to determine [...] Support: N o Community Service: N o Salt Grinder: N o Health Education and Information: N o Health Care Benefits and Resources Information: N o In Transition: N o Family Support: N o One Source: N o Provider: N o [facility] or [facility]: N o [facility]: N o Other: N o Provider's Name: ari markham Provider's Title: Eugene guerra Practitioner Provider's Signature: Rafael burks Provider's Date: Provider s Name: Ari Lennon Provider s Signature: Provider s Signature: ari markham providers comments: N o concerns identified or voiced. Ordered: Office Visit Level 2 New 83079 Extracted from:Title: Office Clinic Note- PHA Author: MARLO LENNON NP Date: 07/09/20 1. E XAM/ASSESSMENT, OCCUPATIONAL, INSTRUMENT MECHANIC PERIODIC HEALTH ASSESSMENT (PHA) D epartment of Defense personnel are required to present to [place] [facility] for annual or periodic Medical [...] required hardcopy documents which are scanned into [facility].? I ndividual is M EDICALLY AVAILABLE f or deployment. Ordered: Office Visit Level 2 New 71124 2. T uberculosis screening status D epartment of defense personnel no longer have to have routine periodic TB testing. TB testing is to be performed on only those individuals who qualify according to target guidelines ([place] MEDCOM Reg 40-64) Tuberculosis (TB) Surveillance and Control Program. Targeted screening performed using [facility] form 829, 830, or 831(or BadSeed 6224) and is reviewed with the individual. TB testing?WAS NOT g ivhoward at this time. Ordered: Office Visit Level 2 New 71754 3. E ye/vision finding ( 14302) Screening Test Of Visual Acuity, Quantitative, Bilateral - Department of Defense personnel are required to present to [place] [facility] for annual or periodic Medical [...] SRP coversheet which is scanned into the [facility] folder. Ordered: Office Visit Level 2 New 72938 4. E levated blood pressure reading without diagnosis of hypertension - Recommend patient self monitor blood pressure and follow up with PCM if systolic remains above 129 or diastolic remains above 89. Ordered: Office Visit Level 2 New 88511 Extracted from:Title: R knee injury Author: MIMI REID MD Date: 07/02/20 1. I njury of right knee, K nee injury Suspect soft tissue injury as origin of pain. Doubt fracture, ligamentous or meniscal tear.? No indication for imaging at this time. Recommended conservative therapy (written for temporary profile x 1 week), use of NSAIDs/ice. Follow-up as needed. Ordered: Office Visit Level 3 Est 10628 2. H igh blood pressure Asymptomatic. R ecommended follow up with PCM after graduation and [facility], to consider re-initiation of pharmacotherapy. Ordered: Office Visit Level 3 Est 56474 08/05/[address] [place] [address] Inessa Assessment and Plan Extracted from:Title : [...] 1 tab(s) Oral Daily,Instr:for blood pressure, Pharmacy: [facility] [Federal Rx: #90 last filled 06/09/23] [...] with home ear wax removal. Marv Argueta FISH [employer]TER I mmunizations [facility] Extracted from:Title: Office Clinic Note Author: TIERNEY NARVAEZ Date: 02/19/23 1. 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 Pt to continue physical therapy at [facility]. Medication ordered according to Neurosurgeon's recommendation. Pt [...] in the morning for 7 days, Pharmacy: [facility] [Not filled] diclofenac(diclofenac sodium 75 mg oral delayed release tablet), 1 tab(s), Oral, BID, # 14 tab(s), 0 total refill(s), Maintenance, 1 tab(s) Oral BID,x7 days, Pharmacy: [facility] [Not filled] lansoprazole(lansoprazole 30 mg oral delayed release capsule), 1 cap(s), Oral, Daily, # 60 cap(s), 2 total refill(s), Maintenance, 1 cap(s) Oral Daily, Pharmacy: [facility] [Not filled] Tierney Narvaez PA-C, [facility] Extracted from:Title: [facility] [place] Author: MAGDIEL PALM RN Date: 01/02/23 Health [...] continue care plan as outlined by their Cold Molding Press Operator and that services provided by the [facility] team are meant to be an addition to that care plan. Client stated understanding. Client advise of the [facility]'s stress and sleep management classes/tools. Extracted from:Title: [facility] Bod Repeat Author: MAGDIEL PALM, RN [...] MCKEON Date: 11/28/22 1. E XAM, OCCUPATIONAL, SNF OR SEPARATION FROM [employer] [facility], LONG Completed physical with the following [...] MCKEON Date: 11/27/22 1. E XAM, OCCUPATIONAL, SNF OR SEPARATION FROM [place], SHORT 2807-1 completed for this direct service professional Extracted from:Title: Office Clinic Note- PHHRA 2900 Author: MARLO LENNON NP Date: 07/24/20 1. A SSESSMENT, POST DEPLOYMENT, DOCUMENTED ON [id number] (PDHRA) PDHRA ( DD Form 2900) Deployer: MIMI LAWRENCE Signed by: ari markham Nurse Practitioner o n Deployer reports most recent deployment was to [facility] a nd has deployed 1 t imes before in the past five years. VA Disability Information No VA Disability Information Available. 1. Address concerns identified on deployer questions 1 and 2 Deployer Comments : N /A Deployer Comments: N /A Was the [place]'s e-Profile and/or AHLTA history reviewed to determine [...] Support: N o Community Service: N o Salt Grinder: N o Health Education and Information: N o Health Care Benefits and Resources Information: N o In Transition: N o Family Support: N o One Source: N o Provider: N o [facility]: N o [...] NP Date: 07/09/20 1. E XAM/ASSESSMENT, OCCUPATIONAL, INSTRUMENT MECHANIC PERIODIC HEALTH ASSESSMENT (PHA) D epartment of Defense personnel are required to present to [place] [facility] for annual or periodic Medical [...] required hardcopy documents which are scanned into [email or web address].? I ndividual is M EDICALLY AVAILABLE f or deployment. Ordered: Office Visit Level 2 New 2. T uberculosis screening status D epartment of [employer] personnel no longer have to have routine periodic TB testing. TB testing is to be performed on only those individuals who qualify according to target guidelines ([place] MEDCOM Reg 40-64) Tuberculosis (TB) Surveillance and Control Program. Targeted screening performed using [facility] form 829, 830, or 831(or BadSeed 2390) and is reviewed with the individual. TB testing?WAS NOT naheed solano at this time. Ordered: Office Visit Level 2 New 34360 3. E ye/vision finding ( 80030) Screening Test Of Visual Acuity, Quantitative, Bilateral - Department of Defense personnel are required to present to [place] [facility] for annual or periodic Medical [...] SRP coversheet which is scanned into the [facility] folder. Ordered: Office Visit Level 2 New 00346 4. E levated blood pressure reading without diagnosis of hypertension - Recommend patient self monitor blood pressure and follow up with PCM if systolic remains above 129 or diastolic remains above 89. Ordered: Office Visit Level 2 New 81749 Extracted from:Title: R knee injury Author: MIMI REID MD Date: 07/02/20 1. I njury of right knee, K nee injury Suspect soft tissue injury as origin of pain. Doubt fracture, ligamentous or meniscal tear.? No indication for imaging at this time. Recommended conservative therapy (written for temporary profile x 1 week), use of NSAIDs/ice. Follow-up as needed. Ordered: Office Visit Level 3 Est 94314 2. H igh blood pressure Asymptomatic. R ecommended follow up with PCM after graduation and [facility], to consider re-initiation of pharmacotherapy. Ordered: Office Visit Level 3 Est 66467 08/05/2024 [facility] Assessment and Plan Extracted from:Title : HTN [...] Oral Daily,Instr:for blood pressure, Pharmacy: [facility] [Federal Rx: #90 last filled 06/09/23] [...] with home ear wax removal. Marv Argueta FISH SALTER I mmunizations [facility] Extracted from:Title: Office Clinic Note Author: TIERNEY NARVAEZ Date: 02/19/23 1. 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 Pt to continue physical therapy at [facility]. Medication ordered according to Neurosurgeon's recommendation. Pt [...] in the morning for 7 days, Pharmacy: [facility] [Not filled] diclofenac(diclofenac sodium 75 mg oral delayed release tablet), 1 tab(s), Oral, BID, # 14 tab(s), 0 total refill(s), Maintenance, 1 tab(s) Oral BID,x7 days, Pharmacy: [facility] [Not filled] lansoprazole(lansoprazole 30 mg oral delayed release capsule), 1 cap(s), Oral, Daily, # 60 cap(s), 2 total refill(s), Maintenance, 1 cap(s) Oral Daily, Pharmacy: [facility] [Not filled] Tierney Narvaez PA-C, [place] [facility] Extracted from:Title: [facility] [place] Author: MAGDIEL PALM RN Date: 01/02/23 Health [...] continue care plan as outlined by their Cold Molding Press Operator and that services provided by the [facility] team are meant to be an addition to that care plan. Client stated understanding. Client advise of the [facility]'s stress and sleep management classes/tools. Extracted from:Title: [facility] Bod Repeat Author: MAGDIEL PALM, RN [...] MCKEON Date: 11/28/22 1. E XAM, OCCUPATIONAL, SNF OR SEPARATION FROM [place], LONG Completed physical with the following problems [...] [place] Date: 11/27/22 1. E XAM, OCCUPATIONAL, SNF OR SEPARATION FROM [place], SHORT 2807-1 completed for this direct service professional Extracted from:Title: Office Clinic Note- PHHRA 2900 Author: MARLO LENNON NP Date: 07/24/20 1. A SSESSMENT, POST DEPLOYMENT, DOCUMENTED ON LS2978 (PDHRA) PDHRA ( DD Form 2900) Deployer: MIMI LAWRENCE Signed by: ari markham Nurse Practitioner o n Deployer reports most recent deployment was to [facility] a nd has deployed 1 t imes before in the past five years. VA Disability Information No VA Disability Information Available. 1. Address concerns identified on deployer questions 1 and 2 Deployer Comments : N /A Deployer Comments: N /A Was the [place]'s e-Profile and/or AHLTA history reviewed to determine [...] Support: N o Community Service: N o Salt Grinder: N o Health Education and Information: N o Health Care Benefits and Resources Information: N o In Transition: N o Family Support: N o One Source: N o Provider: N o [facility] or Community Clinic: N o [facility]: N o Other: N o Provider's Name: ari markham Provider's Title: Eugene guerra Practitioner Provider's Signature: Rafael burks Provider's Date: Provider s Name: Ari Lennon Provider s Signature: Provider s Signature: ari markham providers comments: N o concerns identified or voiced. Ordered: Office Visit Level 2 New 52900 Extracted from:Title: Office Clinic Note- PHA Author: MARLO LENNON NP Date: 07/09/20 1. E XAM/ASSESSMENT, OCCUPATIONAL, INSTRUMENT MECHANIC PERIODIC HEALTH ASSESSMENT (PHA) D epartment of Defense personnel are required to present to [place] [facility] for annual or periodic Medical [...] required hardcopy documents which are scanned into [facility].? I ndividual is M EDICALLY AVAILABLE f or deployment. Ordered: Office Visit Level 2 New 53585 2. T uberculosis screening status [facility] [place] [facility] personnel no longer have to have routine periodic TB testing. TB testing is to be performed on only those individuals who qualify according to target guidelines ([facility] Reg 40-64) Tuberculosis (TB) Surveillance and Control Program. Targeted screening performed using [facility] form 829, 830, or 831(or BadSeed 6225) and is reviewed with the individual. TB testing?WAS NOT naheed solano at this time. Ordered: Office Visit Level 2 New 53209 3. E ye/vision finding ( 78725) Screening Test Of Visual Acuity, Quantitative, Bilateral - Department of [employer] personnel are required to present to [place] [facility] for annual or periodic Medical [...] SRP coversheet which is scanned into the [facility] folder. Ordered: Office Visit Level 2 New 79342 4. E levated blood pressure reading without diagnosis of hypertension - Recommend patient self monitor blood pressure and follow up with PCM if systolic remains above 129 or diastolic remains above 89. Ordered: Office Visit Level 2 New 86654 Extracted from:Title: R knee injury Author: MIMI REID MD Date: 07/02/20 1. I njury of right knee, K nee injury Suspect soft tissue injury as origin of pain. Doubt fracture, ligamentous or meniscal tear.? No indication for imaging at this time. Recommended conservative therapy (written for temporary profile x 1 week), use of NSAIDs/ice. Follow-up as needed. Ordered: Office Visit Level 3 Est 23841 2. H igh blood pressure Asymptomatic. R ecommended follow up with PCM after graduation and [facility], to consider re-initiation of pharmacotherapy. Ordered: Office Visit Level 3 Est 09216 08/05/2024 [facility] Functional Status Combined list of recent functional and cognitive assessments recorded at Department of Defense and Veterans Affairs (VA).VA Functional [place] Measurement (FIM) Scale: 1 = Total Assistance (Subject = 0% +), 2 = Maximal Assistance (Subject = 25% +), 3 = Moderate Assistance (Subject = 50% +), 4 = Minimal Assistance (Subject = 75% +), 5 = Supervision, 6 = Modified [place] (Device), 7 = Complete [place] (Timely, Safely). Assessment Date/Time Source Assessment Type Assessment Skill Assessment Score Assessment Details No data available for this section
[2024-08-05 12:03] LABS: Slide Review Reflex No
--- NOTE | 2024-08-05 12:09 | ED.GENADULT ---
HPI - General Adult General Chief complaint: Chest Pain Stated complaint: chest pain Time Seen by Provider: 08/05/24 11:23 Source: patient Mode of arrival: ambulatory Limitations: no limitations History of Present Illness HPI narrative: 38-year-old male, history of obstructive sleep apnea with CPAP, hypertension and ADHD, presenting today with chest pain going on for approximately 1 week. Pain comes and goes. It is located in the center of the chest, described as a pressure. Does not cause diaphoresis, shortness of breath or dizziness. He notices it when he thinks about work. Patient works in IT. Physical activity does not make it better or worse. Eating does not make it better or worse. He denies recent illness or ill. No recent traveling. No recent surgeries. No personal or family history of blood clots. He denies fevers or chills. No significant changes in his appetite. He is not sleeping well at night because he is worried about work and his ?brain will not stop?. Of note, patient states that he does not take his blood pressure medication regularly. Did not take it today. Related Data Home Medications ?Medication ?Instructions ?Recorded ?Confirmed chlorthalidone 25 mg tablet mg PO 02/01/24 05/30/24 lisdexamfetamine 40 mg capsule 40 mg PO DAILY 02/01/24 08/05/24 losartan 50 mg tablet 50 mg PO DAILY 02/01/24 08/05/24 Allergies Allergy/AdvReac Type Severity Reaction Status Date / Time No Known Drug Allergies Allergy Verified 08/05/24 11:33 Review of Systems Status of ROS: Reports: 10 or more systems reviewed and unremarkable except as noted in History and below [facility] Medical History Hypertension ?I10 - Essential (primary) hypertension (ICD-10) Surgical History History of open reduction and internal fixation (ORIF) procedure (2005) ?Z98.890 - Other specified postprocedural states (ICD-10) History of arthroscopy of right knee (2021) ?Z98.890 - Other specified postprocedural states (ICD-10) History of appendectomy (2016) ?Z90.49 - Acquired absence of other specified parts of digestive tract (ICD-10) Social History Smoking Status: Never smoker Do you use any of these nicotine containing products: None Second hand tobacco smoke exposure: No Exam Narrative: Exam Narrative: Well-nourished well-developed patient in no acute distress. Alert and oriented. Answers questions appropriately. Mood and affect are appropriate. Thoughts are goal oriented and rational. No tangential or magical thinking noted. Patient speaks in full sentences without needing to catch his breath. HEENT: Normocephalic atraumatic. Pupils are equally round reactive to light. Extraocular muscles are intact. Conjunctivae are moist without any icterus noted. Moist mucous membranes. Cardiovascular: Tachycardic, S1-S2 present without murmurs. Lungs: Clear to auscultation bilaterally no wheezes rhonchi or rales are appreciated. Patient takes deep breaths without any discomfort. I cannot reproduce his pain with palpation. Abdomen: Soft and nontender nondistended with normal bowel sounds. Extremities: Bilateral lower extremities are without edema. Skin: Well perfused without any obvious rashes. Const: Vital Signs, click to edit/add: Vital Signs - 24 hr 08/05/24 11:28 08/05/24 12:03 08/05/24 12:15 Temperature 97.2 F L Pulse Rate 107 H 101 H Pulse Rate [Right Pulse Oximeter] 102 H Respiratory Rate 18 18 Blood Pressure [Ri ght Upper Arm] 177/129 H Pulse Oximetry 98 99 98 Oxygen Delivery Ks thod Room Air 08/05/24 12:30 Temperature Pulse Rate 95 Pulse Rate [Right Pulse Oximeter] Respiratory Rate 14 Blood Pressure [Ri ght Upper Arm] Pulse Oximetry 100 Oxygen Delivery Ks thod Course Course ED Course: EKG, read by me, shows normal sinus rhythm, pulse 98. Normal QRS, MA and QT intervals. Chest x-ray, read by me, does not show any acute pathology. Blood work normal. Vital Signs Vital signs: Initial Vital Signs Temperature 97.2 F L 08/05/24 11:28 Temperature Source Temporal Artery Scan 08/05/24 11:28 Pulse Rate 102 H 08/05/24 11:28 Pulse Rhythm Regular 08/05/24 11:28 Pulse Strength 3+ Normal 08/05/24 11:28 Respiratory Rate 18 08/05/24 11:28 Blood Pressure 177/129 H 08/05/24 11:28 Blood Pressure Mean 145 H 08/05/24 11:28 Blood Pressure Position Sitting 08/05/24 11:28 Pulse Oximetry 98 08/05/24 11:28 Oxygen Delivery Method Room Air 08/05/24 11:28 Vital Signs Temperature 97.2 F L 08/05/24 11:28 Pulse Rate 102 H 08/05/24 11:28 Respiratory Rate 18 08/05/24 11:28 Blood Pressure 177/129 H 08/05/24 11:28 Pulse Oximetry 98 08/05/24 11:28 Oxygen Delivery Method Room Air 08/05/24 11:28 Temperature 97.2 F L 08/05/24 11:28 Pulse Rate 95 08/05/24 12:30 Respiratory Rate 14 08/05/24 12:30 Blood Pressure 177/129 H 08/05/24 11:28 Pulse Oximetry 100 08/05/24 12:30 Oxygen Delivery Method Room Air 08/05/24 11:28 Medical Decision Making MDM Narrative Medical decision making narrative: 38-year-old male with chest pain that gets worse when he thinks about work. Sounds like patient is under lot of stress and this is causing a lot of anxiety. Chest discomfort seems to be caused by this anxiety. Do not believe that this caused by an acute coronary syndrome. With a negative D-dimer, normal x-ray and normal blood work it would be very unlikely that he has PE, pericarditis, pneumothorax, pneumonia. We discussed stress management, therapy and follow-up with primary care. Medical Records Medical records reviewed: Yes I reviewed the patient's medical records Lab Data Lab results reviewed: Yes I reviewed the patient's lab results Labs: Lab Results 08/05/24 Range/Units 11:50 WBC 5.97 (4.50-11.00) K/uL RBC 5.52 (4.30-5.90) m/uL Hgb 15.9 (13.5-17.5) gm/dL Hct 48.6 (37.0-53.0) % MCV 88 (80-100) fL MCH 29 (26-34) pg MCHC 33 (32-36) gm/dL RDW Coeff of Gaurav 12.6 (11.5-15.5) % Plt Count 256 (140-440) K/uL Neut % (Auto) 48.2 (42.0-72.0) % Lymph % (Auto) 42.5 (20-44) % Williamson % (Auto) 7.0 (0.0-11.0) % Eos % (Auto) 1.8 (0.0-7.0) % Baso % (Auto) 0.3 (0.0-3.0) % Neut # (Auto) 2.87 (1.7-7.0) K/uL Lymph # (Auto) 2.54 (0.90-2.90) K/uL Williamson # (Auto) 0.40 (0.00-0.90) K/UL Eos # (Auto) 0.11 (0.00-0.50) K/uL Baso # (Auto) 0.02 (0.00-0.30) K/uL Abs Immat Gran (auto) 0.01 (0.00-0.30) K/uL Imm/Tot Granulo (auto) 0.2 % ESR < 2 L (2-15) mm/hr D-Dimer Quant (PE/DVT) < 0.27 (0.00-0.50) ug/ml Sodium 139 (135-149) mmol/L Potassium 4.0 (3.6-5.1) mmol/L Chloride 104 (96-114) mmol/L Carbon Dioxide 27 (20-32) mmol/L Anion Gap 8 (7-15) mEq/L BUN 15 (5-24) mg/dL Creatinine 1.4 (0.5-1.5) mg/dL Estimated Creat Clear 72.94 Estimated GFR 67 ml/min Glucose 96 (60-115) mg/dL Calcium 9.4 (8.4-10.6) mg/dL Total Bilirubin 0.8 (0.1-1.5) mg/dL Direct Bilirubin 0.2 (0.0-0.5) mg/dL AST 32 (12-35) U/L ALT 21 (4-50) U/L Alkaline Phosphatase 43 (40-150) U/L Troponin I < 0.01 (0.01-0.04) ng/mL C-Reactive Protein < 0.5 L (0.5-1.0) mg/dL Total Protein 8.6 H (6.0-8.3) g/dL Albumin 4.8 (3.3-5.0) g/dL Lipase 149 (23-300) U/L TSH 1.670 (0.270-4.20) uIU/mL Imaging Data Chest x-ray: Attestation: I have reviewed the pertinent imaging results. Radiologist's impression: Technique: Chest 2 views Comparison: None Findings/Impression: Cardiovascular and mediastinum: Normal heart size with mild aortic tortuosity. Lungs and pleural spaces: Lungs are clear. No sign of infiltrate or mass. No sign of pleural effusion. No pneumothorax. Bones and soft tissues: No significant findings. ECG Data Attestation: I personally reviewed and interpreted this ECG as follows: Discharge Plan Discharge Clinical Impression: Atypical chest pain, Anxiety Patient Disposition: Home, Self-Care Condition: Stable Additional Instructions: Your workup today was reassuring. There seems to be no evidence of heart attack, blood clots or other life-threatening causes of chest pain. I do believe your discomfort is likely secondary to stress and anxiety. I recommend you follow-up with your primary care soon as you can to discuss your symptoms and discuss next steps. Prescriptions: No Action lisdexamfetamine 40 mg capsule 40 mg PO DAILY chlorthalidone 25 mg tablet PO losartan 50 mg tablet 50 mg PO DAILY Follow Up/Referrals: Devan Nguyễn MD [Primary Care Provider, Family Practice] Stand Alone Forms: [email or web address] Info Instructions
[2024-08-05 12:16] LABS: Albumin* 4.8 g/dL (3.3-5.0); Chloride* 104 mmol/L (96-114)
[2024-08-05 12:17] LABS: Sodium* 139 mmol/L (135-149)
[2024-08-05 12:19] LABS: Blood Urea Nitrogen* 15 mg/dL (5-24); Creatinine* 1.4 mg/dL (0.5-1.5); Est. Creatinine Clearance* 72.94; Estimated Glomerular Filt Rate 67 ml/min
[2024-08-05 12:20] LABS: Alanine Aminotransferase* 21 U/L (4-50); Alkaline Phosphatase* 43 U/L (40-150); Anion Gap 8 mEq/L (7-15); Aspartate Amino Transferase* 32 U/L (12-35); Bilirubin Direct* 0.2 mg/dL (0.0-0.5); Bilirubin Total* 0.8 mg/dL (0.1-1.5); Calcium* 9.4 mg/dL (8.4-10.6); Carbon Dioxide* 27 mmol/L (20-32); Glucose* 96 mg/dL (60-115); Lipase* 149 U/L (23-300); Total Protein* 8.6 g/dL (6.0-8.3)
[2024-08-05 12:29] LABS: D Dimer Quantitative* < 0.27 ug/ml (0.00-0.50)
[2024-08-05 12:44] LABS: Erythrocyte SedimentationRate* < 2 mm/hr (2-15)
[2024-08-05 12:46] LABS: C Reactive Protein* < 0.5 mg/dL (0.5-1.0); Troponin I* < 0.01 ng/mL (0.01-0.04)
== END 2024-08-05 13:37 | disposition home or self-care (01) ==
PROVIDERS: Emergency Provider Family Medicine; PCP Family Medicine
DX: R07.89 Other chest pain (principal); G47.33 Obstructive sleep apnea (adult) (pediatric); I10 Essential (primary) hypertension; F90.9 Attention-deficit hyperactivity disorder, unspecified type; Z79.899 Other long term (current) drug therapy; Z99.89 Dependence on other enabling machines and devices
CPT/HCPCS: 36415; 71046; 80048; 80076; 83690; 84443; 84484; 85025; 85379; 85651; 86140; 93005; 99284; 99285